=== PATIENT | female | born 1955 | race Caucasian/White ===

== ENCOUNTER 2019-06-24 09:59 | Inpatient (IN) | payer MEDICARE, MEDICAID, SELFPAY ==
--- NOTE | ~2019-06-24 | XR_ITS ---
EXAMINATION: XR chest 2V DATE: 06/24/2019 10:53 INDICATION: Cough. Abdominal pain. Vomiting. TECHNIQUE: Frontal and lateral views of the chest were obtained. COMPARISON: Chest 2 views 12/09/2018, chest CT 12/10/2018 FINDINGS: The chest demonstrates clear lungs without pneumonia, pleural effusion, or pneumothorax. Th e heart size is normal. Calcified left hilar and mediastinal lymph nodes are consistent with old gran ulomatous disease. There is plate and screw fixation of proximal right humerus. There is an old heale d fracture deformity of proximal left humerus. There are changes of posterior fusion procedure from T 10 to L2. There is a chronic burst fracture of T12. There are chronic compression fractures of T11 an d L1. Surgical clips in the right upper quadrant are likely from cholecystectomy. IMPRESSION: 1. No acute cardiopulmonary disease. Reviewed, dictated and finalized at location [facility].
--- NOTE | ~2019-06-24 | CT_ITS ---
EXAMINATION: CT abdomen pelvis w con DATE: 06/24/2019 12:10 INDICATION: Epigastric abdominal pain, nausea and vomiting for days. TECHNIQUE: Computed tomography (CT) of the abdomen and pelvis was performed with 100 cc Omnipaque 350 intravenous contrast. Automated exposure control and iterative reconstruction technique were employe d. Exam dose: 267.00 mGy-cm total exam DLP. COMPARISON: 11/30/2018 CT abdomen pelvis 12/10/2018 CT thorax, abdomen, pelvis FINDINGS: Stable approximately 4 mm nodule in the right lower lobe since 12/10/2018. Mild emphysemato us changes are noted. No infiltrate or consolidation in the lower lung zones. Normal heart size. No pericardial or pleural effusion. Small hiatal hernia. Status post cholecystectomy. Calcified hepatic and splenic granulomas, consistent with old granulomat ous disease. There is chronic pancreatitis with numerous pancreatic calcifications and pancreatic duct dilatation. The pancreatic ductal dilatation is more prominent since prior examination. No peripancreatic strand ing or fluid. Consider pancreatic MRI examination Normal adrenal glands. Small cyst or scar along the posterior mid right kidney. The kidneys are otherwise unremarkable. No u rinary tract calculus or hydroureteronephrosis. There is atherosclerotic calcification of the abdominal aorta but no aneurysm. No intraperitoneal or retroperitoneal or pelvic mass lesion or adenopathy or ascites is evident. There is nonspecific 4.5 cm dilatation of the duodenum with fluid levels. There is jejunal diameter u p to approximately 3 cm with areas of small bowel wall thickening. The distal small bowel is of lesse r caliber. Consider adynamic ileus, infectious or inflammatory small bowel disease. Moderate anterior wedge T11, L1, L3, L4 compression fracture. Severe burst fracture deformity at T12. Posterior pedicle screws and rods at T11-L2. Compression screw and nail in the proximal right femur. IMPRESSION: Nonspecific duodenal dilatation and air-fluid levels and mild dilatation, wall thickenin g and air-fluid levels of the jejunum; consider infectious or inflammatory enteritis, adynamic ileus Chronic pancreatitis, including multiple calcifications and pancreatic duct dilatation; consider panc reatic MRI given interval enlargement of the pancreatic duct Multiple compression fracture and burst fracture deformities of the thoracic and lumbar spine Reviewed, dictated and finalized at [facility]. Reviewed, dictated and finalized at location A. IMPRESSION: Nonspecific duodenal dilatation and air-fluid levels and mild dila tation, wall thickening and air-fluid levels of the jejunum; consider infectiou s or inflammatory enteritis, adynamic ileus Chronic pancreatitis, including multiple calcifications and pancreatic duct dil atation; consider pancreatic MRI given interval enlargement of the pancreatic d uct Multiple compression fracture and burst fracture deformities of the thoracic an d lumbar spine
[2019-06-24 10:03] VITALS: BP 137/95; PULSE 118; RESP 18; TEMP 36.7; O2SAT 98
--- NOTE | 2019-06-24 10:07 | ECG_ITS ---
Measurements Intervals Brilliant Rate: 124 P: 82 LA: 154 QRS: 86 QRSD: 79 T: 82 QT: 318 QTc: 457 Interpretive Statements SINUS TACHYCARDIA DELAYED PRECORDIAL R/S TRANSITION BORDERLINE T WAVE ABNORMALITY- LATERAL LEADS ABNORMAL ECG Electronically Signed On 06-24-2019 10:39:52 CDT by Santana Retana D.O.
[2019-06-24] MEDS: ONDANSETRON INJ 4 MG/2 ML VIAL 8 MG IV PUSH (10:25)
[2019-06-24] MEDS: HYDROMORPHONE HCL 2 MG/ML VIAL 0.5 MG IV PUSH ×2 (10:26→13:43)
[2019-06-24] MEDS: SODIUM CHLORIDE 0.9% IV 1,000 ML 999 ML IV CONT ×2 (10:30→12:19)
[2019-06-24 10:33] LABS: Basophils Absolute Auto 0.03 K/mm3 (0.00-0.10); Basophils Percent Auto 0.4 % (0.0-1.0); Eosinophils Percent Auto 1.3 % (1.0-6.0); Hematocrit 50.4 % (35.0-49.0); Hemoglobin 17.4 g/dL (12.0-15.0); Immature Granulocyte Absolute 0.03 K/mm3 (0.00-0.00); Immature Granulocyte Percent A 0.4 % (0.0-0.0); Lymphocytes Absolute Auto 1.62 K/mm3 (1.10-4.50); Lymphocytes Percent Auto 20.5 % (18.0-42.0); Mean Corpuscular HGB Conc 34.5 g/dL (32.0-36.0); Mean Corpuscular Volume 92.8 fL (78.0-102.0); Monocytes Percent Auto 6.3 % (2.0-11.0); Neutrophils Absolute Auto 5.6 K/mm3 (1.7-7.2); Neutrophils Percent Auto 71.1 % (50.0-70.0); Platelet Count Result 297 K/mm3 (150-420); Red Blood Count 5.43 M/mm3 (4.20-5.40); Red Cell Distribution Width 14.4 % (11.6-14.4); White Blood Count 7.9 K/mm3 (4.8-10.8)
--- NOTE | 2019-06-24 10:43 | PC.NURSE ---
Report given to Tommie Venegas
[2019-06-24 10:46] LABS: Partial Thromboplastin Time 32.7 SEC (22.3-31.6); Prothrombin Time 10.7 Seconds (9.64-11.0)
--- NOTE | 2019-06-24 10:50 | ED.ABDPAIN ---
HPI - Abdominal Pain General Chief Complaint: Abdominal Pain Stated Complaint: Ambulance Time Seen by Provider: 06/24/19 10:00 Source: patient Mode of arrival: ambulatory Limitations: no limitations History of Present Illness HPI narrative: 63-year-old woman with a history of pancreatitis, hepatitis, GERD, hiatal hernia and chronic abdominal pain came to the emergency department by EMS for 2 days of epigastric pain, vomiting and diarrhea. She denies blood in her stool or blood in her vomitus and she has had no fever. She states that she has a chronic cough and emphysema but has not used her inhaler since last night. She denies any sick exposures or recent travel. MD elicited complaint: abdominal pain Pertinent past history: other ( Pancreatitis) Onset (ago): day(s) (2) Pain Consistency: constant Location: epigastric Severity: severe Quality: sharp Radiation: none Migration to: no migration Exacerbating factors: nothing Relieving factors: nothing Associated symptoms: nausea, vomiting and diarrhea Related Data Home Medications Medication Instructions Recorded Confirmed albuterol sulfate 2 puff INHALATION PRN PRN 06/24/19 06/24/19 amitriptyline 100 mg PO HS 06/24/19 06/24/19 pantoprazole 40 mg PO DAILY 06/24/19 06/24/19 Allergies Allergy/AdvReac Type Severity Reaction Status Date / Time aspirin Allergy Unknown Unknown Verified 11/30/18 20:28 codeine Allergy Unknown Rash Verified 06/24/19 10:19 Penicillins Allergy Unknown Unknown Verified 11/30/18 20:28 Sulfa (Sulfonamide Allergy Unknown Unknown Verified 11/30/18 20:28 Antibiotics) Review of Systems Constitutional: Constitutional: Denies chills, Reports fatigue, Denies fever(s) and Denies weakness Eyes: Eyes: Denies change in vision and Denies photophobia ENT: Denies dysphagia, Denies nasal congestion and Denies sore throat Cardiovascular: Cardiovascular: Reports chest pain and Denies radiating jaw, neck or arm pain Respiratory: Respiratory: Reports cough, Reports dyspnea and Reports wheezing Gastrointestinal: Gastrointestinal: Reports abdominal pain, Reports diarrhea, Reports nausea and Reports vomiting Genitourinary: Genitourinary: Denies hematuria, Denies nocturia and Denies dysuria Musculoskeletal: Musculoskeletal: Denies back pain, Denies arthralgias and Denies joint swelling Integumentary/Breasts: Skin/Breast: Denies pruritus, Denies erythema and Denies rash Neurologic: Denies vertigo, Denies dizziness and Denies syncope Psychiatric: Psychiatric: Denies anxiety and Denies depression Endocrine: Endocrine: Denies polydipsia and Denies polyuria Hematologic/Lymphatic: Hematologic/Lymphatic: Denies easy bleeding and Denies easy bruising Allergic/Immunologic: Allergic/Immunologic: Denies lip swelling and Reports wheezing PMFSH Past Medical History Medical History GERD (gastroesophageal reflux disease) Pancreatitis Surgical History Surgical History H/O shoulder surgery right History of ankle surgery right History of hip surgery right Hx of cholecystectomy Previous back surgery Social History Social History Smoking status: Never smoker Alcohol intake: never Substance use: never Living arrangements: with family Exam Narrative: Exam Narrative: acute distress, tearful Const: General: alert Nutritional Appearance: well nourished Orientation/consciousness: patient oriented x3 HENMT: Ears: external ears normal, TM's normal bilaterally and EAC's normal Mouth: Yes Normal oral and palatal mucosa present and Yes moist mucous membranes Throat: posterior oropharynx normal Eyes: Conjunctivae: conjunctivae normal Pupils: Equal, round and reactive pupils present EOM: EOMs intact bilaterally Resp: Effort & Inspection: normal respiratory effort and not labored
[2019-06-24 10:56] LABS: Add Urine Microscopic? YES; Appearance Urine Sl Cloudy (Clear); Bilirubin Urine 2+ (Negative); Blood Urine Negative (Negative); Color Urine Yellow (Yellow); Glucose Urine UA Negative (Negative); Ketones Urine Trace (Negative); Leukocyte Esterase Ur Negative LEU/UL (Negative); Nitrate Urine Negative (Negative); Protein Urine 1+ (Negative); Specific Grav Ur 1.025 (1.010-1.020); pH Urine 5.5 (5.0-8.0)
[2019-06-24 11:01] LABS: RBC Urine 0-2 /hpf (0-2); Squamous Epithelial Cell Urine Moderate /hpf (Few); WBC Urine 0-3 /hpf (0-3)
[2019-06-24 11:02] LABS: Bacteria Urine 1+ /hpf; Mucus Urine Few /lpf
[2019-06-24] MEDS: IPRATROPIUM 0.5 MG/ALBUTEROL SULFATE 2.5 MG AMPUL.NEB 3 ML INHALATION (11:04)
[2019-06-24 11:06] VITALS: PULSE 97; RESP 16
[2019-06-24 11:12] VITALS: PULSE 98; RESP 16
[2019-06-24 11:18] LABS: Lactic Acid Reflex 1.2 mmol/L (0.4-2.0)
[2019-06-24 11:28] LABS: Alanine Aminotransferase 17 U/L (14-59); Albumin Level 3.6 g/dL (3.4-5.0); Alkaline Phosphatase 165 U/L (46-116); Aspartate Amino Transferase 16 U/L (15-37); Bilirubin,Total 0.5 mg/dL (0.00-1.00); Blood Urea Nitrogen 16 mg/dL (7-18); Calcium 9.7 mg/dL (8.5-10.1); Carbon Dioxide 27 mmol/L (21-32); Estimated Glomerular Filt Rate > 60; Glucose 103 mg/dL (70-99); Lipase 518 U/L (73-393)
[2019-06-24 11:29] LABS: Anion Gap 15.4 mmol/L (7-16); Chloride 97 mmol/L (98-108); Osmolality Calculated 283 mOsm/kg (285-295); Potassium 3.4 mmol/L (3.5-5.1); Sodium 136 mmol/L (136-145); Troponin I < 0.02 ng/mL (0.00-0.056)
[2019-06-24 12:08] VITALS: BP 139/74; PULSE 125; O2SAT 93
[2019-06-24 12:25] VITALS: PULSE 121; RESP 20; TEMP 37.6; O2SAT 96
[2019-06-24] MEDS: ENOXAPARIN 40 MG/0.4 ML SYRINGE SUB-Q (12:44)
[2019-06-24] MEDS: PANTOPRAZOLE SODIUM IV 40 MG VIAL IV PUSH (12:44)
[2019-06-24 12:54] VITALS: BMI 16.9
[2019-06-24] MEDS: ONDANSETRON INJ 4 MG/2 ML VIAL IV PUSH (13:43)
--- NOTE | 2019-06-24 14:11 | PM.IMHP ---
H&P: HPI History of Present Illness Chief complaint: Ambulance Narrative: Heather Carpio is a 63 year old female that presented to the ED complaining nausea, vomiting, diarrhea and decreased appetite. patient has a past medical history of GERD and pancreatitis. according to patient she has had a history of GERD since her teenage years. She noted that she started having symptoms of GERD into Pepto-Bismol at home for it. She noted that the Pepto-Bismol did not relieve the pain. She also noted that her appetite had decreased she was unable to hold anything down. At approximately 3:00 a.m. this morning her pain worsen and she had uncontrollable vomiting with diarrhea. she did note that her stool was dark in color. while in the ED a CT was completed indicated Nonspecific duodenal dilatation and air-fluid levels and mild dilatation, wall thickening and air-fluid levels of the jejunum; consider infectious or inflammatory enteritis, adynamic ileus Chronic pancreatitis, including multiple calcifications and pancreatic duct dilatation; consider pancreatic MRI given interval enlargement of the pancreatic duct. Patient chest x-ray was unremarkable occult blood was collected along with C diff and stool workup patient's liver function tests, CRP, troponin and lactic acid were all within normal limits. Patient's alkaline phosphate was elevated along with her lipase. Patient is being admitted for cramps acute pancreatitis, acute dehydration and hypokalemia. Her current vital signs 139/74, 121, 99.6, 20, 96. patient continues to complain of epigastric pain. she did note while she was at home that it did not worsen with food and the pain remained whether she was sitting up or lying down. patient is very emotional today and appears to be anxious Patient denies SOB, CP, palpitation, extremity numbness, lightheadness, dizziness, and constipation. patient will remain NPO and given all medication via IV Review of Systems Constitutional: Constitutional: Reports poor appetite and Reports weakness Cardiovascular: Cardiovascular: Reports lightheadedness, Denies dyspnea, Denies dyspnea on exertion and Denies orthopnea Respiratory: Respiratory: Denies cough, Denies dyspnea and Denies wheezing Gastrointestinal: Gastrointestinal: Denies coffee ground emesis, Reports diarrhea ( dark in color), Reports nausea, Reports vomiting and Denies hematemesis Genitourinary: Genitourinary: Reports no additional female genitourinary complaints, Denies hematuria and Denies dysuria Musculoskeletal: Musculoskeletal: Denies no additional musculoskeletal complaints Integumentary/Breasts: Skin/Breast: Denies system reviewed and no additional complaints, except as docu Neurologic: Denies vertigo, Denies dizziness and Denies syncope Psychiatric: Psychiatric: Denies no additional psychiatric complaints and Denies confusion Endocrine: Endocrine: Reports as per HPI Hematologic/Lymphatic: Hematologic/Lymphatic: Reports as per HPI PMFSH Past Medical History Medical History GERD (gastroesophageal reflux disease) Pancreatitis Surgical History Surgical History H/O shoulder surgery right History of ankle surgery right History of hip surgery right Hx of cholecystectomy Previous back surgery Family History Family History (Updated 06/24/19 @ 13:10 by Sheri Doran RN) Father Cancer Mother Cancer Social History Social History Smoking status: Current some day smoker Tobacco type: cigarettes Second hand tobacco smoke exposure: Yes Alcohol intake: never Substance use: never Substance use type: does not use Living arrangements: with family Gender identity (if verbalized by the patient): Female Spiritual care concerns: No Agree to blood products: Yes Meds Home Medications and A
[2019-06-24] MEDS: MAGNESIUM SULF 2 GM/WATER 50ML 2 GM/50 ML BAG IVPB (14:52)
[2019-06-24 16:00] VITALS: BP 144/97; PULSE 96; RESP 20; TEMP 37.2; O2SAT 96
[2019-06-24] MEDS: HYDROMORPHONE HCL 2 MG/ML VIAL 1 MG IV PUSH ×3 (16:28→22:59)
[2019-06-24] MEDS: KCL 20 MEQ/SW 100 ML 100 ML 50 MEQ IVPB (16:28)
[2019-06-24] MEDS: DEXTROSE 5%/LACTATED RINGERS 1,000 ML 200 ML IV CONT ×2 (18:27→22:58)
[2019-06-24] MEDS: AMITRIPTYLINE HCL 25 MG TABLET 100 MG PO (21:14)
[2019-06-24] MEDS: LORAZEPAM INJ 2 MG/ML VIAL 0.5 MG IV PUSH (21:16)
[2019-06-25] VITALS: BP 130/82; PULSE 78; RESP 18; TEMP 36.3; O2SAT 94
[2019-06-25] MEDS: PANTOPRAZOLE SODIUM IV 40 MG VIAL IV PUSH (00:21)
[2019-06-25] MEDS: HYDROMORPHONE HCL 2 MG/ML VIAL 1 MG IV PUSH ×3 (03:17→11:23)
--- NOTE | 2019-06-25 03:20 | PC.NURSE ---
Patient's RFA IV site no longer flushes and therefore discontinued. New site started in left foot by Gloria Fitzpatrick RN. Patient requested/given PRN Dilaudid for abdominal pain. Call light in reach.
[2019-06-25] MEDS: DEXTROSE 5%/LACTATED RINGERS 1,000 ML 200 ML IV CONT (05:21)
[2019-06-25 05:50] LABS: Basophils Absolute Auto 0.04 K/mm3 (0.00-0.10); Basophils Percent Auto 0.8 % (0.0-1.0); Eosinophils Absolute Auto 0.21 K/mm3 (0.02-0.50); Eosinophils Percent Auto 4.4 % (1.0-6.0); Hematocrit 42.7 % (35.0-49.0); Hemoglobin 13.7 g/dL (12.0-15.0); Immature Granulocyte Absolute 0.01 K/mm3 (0.00-0.00); Immature Granulocyte Percent A 0.2 % (0.0-0.0); Lymphocytes Percent Auto 44.2 % (18.0-42.0); Mean Corpuscular HGB Conc 32.1 g/dL (32.0-36.0); Mean Corpuscular Hemoglobin 31.2 pg (27.0-31.0); Mean Corpuscular Volume 97.3 fL (78.0-102.0); Mean Platelet Volume 9.1 fl (9.2-11.8); Monocytes Absolute Auto 0.36 K/mm3 (0.10-0.90); Monocytes Percent Auto 7.6 % (2.0-11.0); Neutrophils Percent Auto 42.8 % (50.0-70.0); Platelet Count Result 188 K/mm3 (150-420); Red Blood Count 4.39 M/mm3 (4.20-5.40); Red Cell Distribution Width 14.5 % (11.6-14.4); White Blood Count 4.8 K/mm3 (4.8-10.8)
[2019-06-25 06:19] LABS: Alanine Aminotransferase 14 U/L (14-59); Albumin Level 2.7 g/dL (3.4-5.0); Alkaline Phosphatase 118 U/L (46-116); Anion Gap 9.7 mmol/L (7-16); Aspartate Amino Transferase 13 U/L (15-37); Bilirubin,Total 0.3 mg/dL (0.00-1.00); Blood Urea Nitrogen 10 mg/dL (7-18); Calcium 8.1 mg/dL (8.5-10.1); Carbon Dioxide 29 mmol/L (21-32); Chloride 104 mmol/L (98-108); Estimated CRCL calculation 64 ml/min; Estimated Glomerular Filt Rate > 60; Glucose 95 mg/dL (70-99); Lipase 237 U/L (73-393); Osmolality Calculated 287 mOsm/kg (285-295); Potassium 3.7 mmol/L (3.5-5.1); Sodium 139 mmol/L (136-145); Total Protein 5.6 g/dL (6.4-8.2)
[2019-06-25 08:00] VITALS: BP 148/84; PULSE 87; RESP 18; TEMP 36.7; O2SAT 94
[2019-06-25] MEDS: FAMOTIDINE 20 MG TABLET PO ×2 (10:52→20:34)
[2019-06-25] MEDS: ONDANSETRON HCL ODT 4 MG TABLET PO ×3 (10:52→23:43)
[2019-06-25] MEDS: PANTOPRAZOLE 40 MG TABLET PO (10:53)
[2019-06-25] MEDS: ACETAMINOPHEN 500 MG TABLET 1000 MG PO (10:53)
[2019-06-25 11:01] LABS: Amphetamine Screen Urine Negative (Negative); Barbiturate Screen Urine Negative (Negative); Benzodiazepines Screen Urine Negative (Negative); Cannabinoid Screen Urine Positive (Negative); Cocaine Screen Urine Negative (Negative); Methadone Screen Urine Negative (Negative); Opiate Screen Urine Negative (Negative); Phencyclidine Screen Urine Negative (Negative)
[2019-06-25] MEDS: SODIUM CHLORIDE 0.9% IV 500 ML IV CONT (11:22)
[2019-06-25] MEDS: LORAZEPAM INJ 2 MG/ML VIAL 0.5 MG IV PUSH (11:23)
[2019-06-25] MEDS: SUCRALFATE SUSP 100 MG/ML 10 ML UDC 1000 MG PO ×3 (11:24→20:34)
[2019-06-25] MEDS: metroNIDAZOLE 500 MG/ISO 100ML 500 MG/100 ML BAG 100 MG IVPB ×3 (12:26→23:43)
[2019-06-25 12:33] LABS: Magnesium 1.5 mg/dL (1.8-2.4); Phosphorus 2.9 mg/dL (2.6-4.7)
[2019-06-25] MEDS: ENOXAPARIN 40 MG/0.4 ML SYRINGE SUB-Q (13:27)
[2019-06-25] MEDS: CIPROFLOXACIN 400 MG/D5W 200ML 200 ML 200 MG IVPB (13:37)
--- NOTE | 2019-06-25 13:50 | PC.NURSE ---
Patient denies nausea while and after eating clear liquid tray. Patient requested crackers with broth
[2019-06-25 16:00] VITALS: BP 158/92; PULSE 74; PULSE 80; RESP 18; TEMP 36.8; O2SAT 96
[2019-06-25] MEDS: MAGNESIUM SULF 4 GM/WATER100ML 4 GM/100 ML BAG IVPB (16:32)
--- NOTE | 2019-06-25 16:53 | PM.IMPN ---
Progress Note: A&P Assessment and Plan (1) Acute pancreatitis: Qualifiers: Acute pancreatitis complication: no infection or necrosis Pancreatitis type: other Qualified Code(s): K85.80 - Other acute pancreatitis without necrosis or infection Code(s): K85.90 - Acute pancreatitis without necrosis or infection, unspecified Status: Acute Assessment and Plan: CT indicates Chronic pancreatitis, including multiple calcifications and pancreatic duct dilatation; consider pancreatic MRI given interval enlargement of the pancreatic duct at discharge on outpatient basis. patient advance diet as tolerated patient received pain medication IV and oral. lipase elevated at 518 - now WNL at 237 alkaline phosphate elevated but also improving from 165 to 118 lactic acid within normal limits occult blood ordered, but no stool ouput for last 2 days of hospitalization. stool workup pending (2) Acute dehydration: Code(s): E86.0 - Dehydration Status: Acute Assessment and Plan: secondary to diarrhea, nausea vomiting caused by pancreatitis resolving and improving advancing her to oral hydration and nutrition. continue to hydrate patient via IV boluses when needed. nausea vomiting and hyperemesis may be related to her marijuana use, her hiatal hernia, or multiple other possible GI causes since she has not had her EGD as planned by GI physician. (3) Acute hypokalemia: Code(s): E87.6 - Hypokalemia Status: Acute Assessment and Plan: potassium 3.4, improved to 3.7 today no further concerns at this time. will repeat labs in the morning. (4) GERD (gastroesophageal reflux disease): Code(s): K21.9 - Gastro-esophageal reflux disease without esophagitis Status: Acute Assessment and Plan: continue Protonix continue pepcid and carafate Subjective Date/time seen: 06/25/19 16:53 This morning upon entering [facility] room for our morning examination and discussion, she was very tearful and in pain. She stated that she had not eaten since last for the most part. That any time she ate or did not eat she would have pain at home. And that she had lost approximately 15 lb. She stated that she had been no better since her admission, and that she was still currently in pain and unable to eat this morning. She does see her primary care physician Dr. Andrew Louis, and she does have a GI specialist Dr. Florinda Ly, but she keeps missing her EGD appointments. She has missed 2 EGD scopes that were scheduled with Dr. Ly, and has yet to reschedule her EGD. He also wants to complete a colonoscopy after her EGD is done. She stated that her last colonoscopy was greater than 15 years ago. she does have a history of marijuana use. In the last time she was in the hospital with similar symptoms and complaints, she was also using marijuana. This hyper emesis and abdominal pain may be related to her marijuana use. On her CT scan from yesterday, it was noted she had a small hiatal hernia, chronic pancreatitis with pancreatic calcifications and pancreatic duct dilatation. This pancreatic duct dilatation seems to be worse when compared to her December 10, 2018 CT scan. She really needs to have a pancreatic MRI, but we do not have MRI here at [facility] until Monday. She will need to get her MRI scheduled as an outpatient after discharge. Also on her CT scan from yesterday, it showed a 4.5 cm dilatation of her duodenum and areas in her jejunum of the small bowel thickening which could be an adynamic ileus or infectious or inflammatory small bowel disease. We have ordered IV Cipro and IV Flagyl. She is not having any diarrhea, no stool output since her admission, and she denies constipation at this time. Her abdominal pain seems to be epigastric and located in the mid and upper region of her abdomen. She is currently having no nausea or vomiting at
--- NOTE | 2019-06-25 18:47 | P.PNCROSS_ITS ---
Event Note Event Note Event Note: Chart reviewed. Discussed with Ro Ayala. S. Still abdominal pain, nausea. Concerned about weight loss. O. Abdomen is soft with epigastric tenderness. A. Abd pain, nausea secondary to pancreatitis. MRI at [facility] unavailable for 4 days - Dilated small bowel may be secondary to infection causing symptoms. Agree with Cipro + metronidazole. Follow up needed to evaluate pancreatic duct dilation seen on CT scan and EGD. Dehydration - improved. Agree with note and plan put forth by Ro Ayala.
[2019-06-25] MEDS: KETOROLAC 30 MG/ML VIAL (*BKC) IV PUSH (18:49)
[2019-06-25 20:00] VITALS: PULSE 73
[2019-06-25 20:14] LABS: Occult Blood Negative (Negative)
[2019-06-25] MEDS: TRAMADOL HCL 50 MG TABLET PO (20:35)
[2019-06-25] MEDS: AMITRIPTYLINE HCL 25 MG TABLET 100 MG PO (20:36)
[2019-06-25 20:42] VITALS: BP 133/84; PULSE 73; RESP 18; TEMP 36.3; O2SAT 95
[2019-06-25 23:40] VITALS: BP 139/87; PULSE 66; RESP 16; TEMP 36.7; O2SAT 94
[2019-06-26] VITALS (7 sets, daily range): BP systolic 118–135; BP diastolic 74–79; PULSE 70–83; RESP 18–20; TEMP 36.2–36.9; O2SAT 94–96
[2019-06-26] MEDS: CIPROFLOXACIN 400 MG/D5W 200ML 200 ML 200 MG IVPB (00:58)
[2019-06-26] MEDS: KETOROLAC 15 MG/ML VIAL (*BKC) IV PUSH (00:59)
[2019-06-26] MEDS: TRAMADOL HCL 50 MG TABLET PO (05:35)
[2019-06-26] MEDS: metroNIDAZOLE 500 MG/ISO 100ML 500 MG/100 ML BAG 100 MG IVPB ×2 (05:36→11:27)
[2019-06-26] MEDS: SUCRALFATE SUSP 100 MG/ML 10 ML UDC 1000 MG PO ×2 (05:36→11:27)
[2019-06-26] MEDS: ONDANSETRON HCL ODT 4 MG TABLET PO ×2 (05:36→09:47)
[2019-06-26 05:38] LABS: Hematocrit 36.6 % (35.0-49.0); Hemoglobin 12.1 g/dL (12.0-15.0); Mean Corpuscular HGB Conc 33.1 g/dL (32.0-36.0); Mean Corpuscular Hemoglobin 31.7 pg (27.0-31.0); Mean Corpuscular Volume 95.8 fL (78.0-102.0); Platelet Count Result 162 K/mm3 (150-420); Red Blood Count 3.82 M/mm3 (4.20-5.40); Red Cell Distribution Width 14.2 % (11.6-14.4); White Blood Count 3.5 K/mm3 (4.8-10.8)
[2019-06-26 06:06] LABS: Alanine Aminotransferase 11 U/L (14-59); Albumin Level 2.4 g/dL (3.4-5.0); Alkaline Phosphatase 112 U/L (46-116); Anion Gap 8.5 mmol/L (7-16); Aspartate Amino Transferase 13 U/L (15-37); Bilirubin,Total 0.3 mg/dL (0.00-1.00); Blood Urea Nitrogen 11 mg/dL (7-18); Carbon Dioxide 29 mmol/L (21-32); Chloride 105 mmol/L (98-108); Estimated CRCL calculation 68 ml/min; Estimated Glomerular Filt Rate > 60; Glucose 99 mg/dL (70-99); Lipase 303 U/L (73-393); Magnesium 1.7 mg/dL (1.8-2.4); Osmolality Calculated 287 mOsm/kg (285-295); Potassium 3.5 mmol/L (3.5-5.1); Sodium 139 mmol/L (136-145); Total Protein 5.4 g/dL (6.4-8.2)
[2019-06-26] MEDS: PANTOPRAZOLE 40 MG TABLET PO (08:01)
[2019-06-26] MEDS: LIDOCAINE 5% PATCH 2 PATCH TRANSDERM (08:01)
[2019-06-26] MEDS: FAMOTIDINE 20 MG TABLET PO (08:01)
[2019-06-26] MEDS: KETOROLAC 30 MG/ML VIAL (*BKC) IV PUSH (08:02)
[2019-06-26] MEDS: LORAZEPAM 0.5 MG TABLET PO (09:47)
--- NOTE | 2019-06-26 09:48 | PC.NURSE ---
Patient complaining of 9-10 stomach pain. Ro Ayala ANP stated to give Ativan PRN dose and Zofran scheduled dose 1.25 hours early. Both given. Patient sitting on the side of the bed without difficulty, tearful. All personal effects within reach. Will continue to monitor.
[2019-06-26] MEDS: MAGNESIUM SULF 4 GM/WATER100ML 4 GM/100 ML BAG IVPB (10:28)
[2019-06-26] MEDS: POTASSIUM CHLORIDE 20 MEQ PACKET (FOR LIQUID) PO (10:29)
--- NOTE | 2019-06-26 11:36 | PM.DS ---
DS: Diagnosis Admitting Diagnosis Admitting Diagnosis: Other acute pancreatitis without necrosis or infection Discharge Diagnosis (1) Acute pancreatitis: Qualifiers: Acute pancreatitis complication: no infection or necrosis Pancreatitis type: other Qualified Code(s): K85.80 - Other acute pancreatitis without necrosis or infection Code(s): K85.90 - Acute pancreatitis without necrosis or infection, unspecified Status: Acute Assessment and Plan: CT indicates Chronic pancreatitis, including multiple calcifications and pancreatic duct dilatation; consider pancreatic MRI given interval enlargement of the pancreatic duct at discharge on outpatient basis. Ordered this at discharge. patient advance diet as tolerated patient received pain medication IV and oral. lipase elevated at 518 - now WNL at 237 and 303 alkaline phosphate elevated but also improving from 165 to 118 lactic acid within normal limits occult blood ordered, but no stool output for last 2 days of hospitalization. stool workup pending (2) Acute dehydration: Code(s): E86.0 - Dehydration Status: Acute Assessment and Plan: secondary to diarrhea, nausea vomiting possibly caused by pancreatitis resolving and improving advancing her to oral hydration and nutrition. continue to hydrate patient via IV boluses when needed. nausea vomiting and hyperemesis may be related to her marijuana use, her hiatal hernia, or multiple other possible GI causes since she has not had her EGD as planned by GI physician. (3) Acute hypokalemia: Code(s): E87.6 - Hypokalemia Status: Acute Assessment and Plan: potassium 3.4, improved to 3.7 and 3.5 today no further concerns at this time. will repeat labs in the morning. (4) GERD (gastroesophageal reflux disease): Code(s): K21.9 - Gastro-esophageal reflux disease without esophagitis Status: Acute Assessment and Plan: continue Protonix continue pepcid and carafate DS: Summary Time Spent with Patient Time attestation: Total time spent providing and/or coordinating discharge services:>90 minutes Exam Narrative: Exam Narrative: Const: General: comfortable and no acute distress; No confusion Orientation/consciousness: No confusion Limitations: no limitations Eyes: General: appearance normal, both eyes and all related structures Pupils: Equal, round and reactive pupils present EOM: EOMs intact bilaterally Resp: Effort & Inspection: normal respiratory effort Auscultation: clear to auscultation bilaterally, no crackles, no rales, no rhonchi, no wheezes and lung sounds not diminished Cardio: Rate: regular rate Rhythm: regular rhythm Heart sounds: no gallops, no murmurs and no rubs GI: Inspection: non-distended GI Palp: Yes Soft to palpation and No Tenderness to palpation present (GI) Auscultation: normal bowel sounds Skin: General skin exam: normal color, rashes and/or lesions noted and no erythema Neuro: General: gait normal and No confusion Cranial nerves: Yes Equal, round and reactive pupils present and Yes Normal hearing present Speech: normal speech and No Abnormal speech present Motor exam (neuro): Normal motor muscle tone present throughout Sensory Exam: normal sensation Extrem: General: normal to inspection, normal exam except as noted, no edema and no pedal edema Right upper extremity: abnormal capillary refill, no cyanosis and no edema Left upper extremity: abnormal capillary refill, no cyanosis and no edema Right lower extremity: abnormal capillary refill, no cyanosis and no edema Left lower extremity: abnormal capillary refill, no cyanosis and no edema Psych: Appearance: grossly normal Mental Status: mental status grossly normal Speech and movement: Normal speech and movement present Affect: normal affect and Anxious affect present Thought content: Yes Normal thought content present Judgement: Fair j
--- NOTE | 2019-06-26 12:13 | PC.NURSE ---
Patient sitting up in bed eating lunch. denies complaints of pain or discomfort. Patient states she is hungry all personal effects within reach. IV infusing without difficulty.
--- NOTE | 2019-06-26 19:26 | PM.EVENT ---
Event Note Event Note Event Note: Patient states that she has intermittent abdominal pain but has been able to tolerate food and drink. Still taking pain medication intermittently and using her nausea medicine p.r.n. alert and oriented. No acute distress. Lungs clear to auscultation. Regular rhythm murmur rub or gallop. No distal edema. Abdomen is soft and minimally tender in the epigastrium. No masses. Positive bowel sounds. Home today with close follow-up. She will also follow-up with her molder shoulder pad. I have examined the patient and reviewed the chart. I discussed patient's care with A Jamie BRADLEY and agree with her assessment and plan.
== END 2019-06-26 14:15 | disposition home or self-care (01) | DRG 640 ==
LOC: CHSED 11:51 → CHS2ND 12:03
PROVIDERS: Nurse Practitioner; Admitting Provider Emergency Medicine; Emergency Provider Emergency Medicine; PCP Family Medicine; Visit Provider Emergency Medicine
DX: K85.80 Other acute pancreatitis without necrosis or infection (principal); E86.0 Dehydration; K85.90 Acute pancreatitis without necrosis or infection, unspecified; E87.6 Hypokalemia; K44.9 Diaphragmatic hernia without obstruction or gangrene; K21.9 Gastro-esophageal reflux disease without esophagitis; F12.90 Cannabis use, unspecified, uncomplicated
CPT/HCPCS: 36415; 71046; 74177; 80053; 80307; 81001; 82272; 83605; 83690; 83735; 84100; 84484; 85025; 85027; 85610; 85730; 87045; 87046; 87177; 87209; 87269; 87272; 87324; 87427; 89055; 93005; 94640; 96361; 96372; 96374; 96375; 97161; 97165; 99285; A9270; C9113; J0744; J1170; J1650; J1885; J2060; J2405; J3475; J3480; J7030; J7040; J7121; Q9965

== ENCOUNTER 2019-07-12 13:28 | Outpatient (CLI) | payer MEDICARE, MEDICAID, SELFPAY ==
--- NOTE | ~2019-07-12 | MR_ITS ---
EXAMINATION: MR MRCP wo/w con/w 3D wo ind DATE: 07/12/2019 15:17 INDICATION: Pancreatitis TECHNIQUE: Magnetic resonance imaging (MRI) of the abdomen was performed without and with intravenous contrast. Sequences included coronal T2-weighted SS-FSE ARC, coronal T2-weighted FS SS-FSE, coronal T2-weighted 2D FS FIESTA, Water:Coronal LAVA-Flex, sagittal T2-weighted SS-FSE ARC, axial SSFSE ARC, axial 3D DualEcho, axial DWI B=600, axial T1-weighted LAVA, FAT:Coronal LAVA-Flex, and coronal in and opposed phase LAVA-Flex. Thick-slab T2-weighted FRFSE-XL images were obtained for magnetic resonance cholangiopancreatography (MRCP). Maximum intensity projection 3-D reconstructions of the volumetric data were created by the technologist. Postcontrast sequences included a time course of axial T1-weig hted LAVA, FAT:Coronal LAVA-Flex, coronal in and opposed phase LAVA-Flex, and Water:Coronal LAVA-Flex . COMPARISON: CT, 06/24/2019 CONTRAST: Multihance, 10 cc FINDINGS: ABDOMEN MRI: The heart size is normal. The gallbladder is surgically absent. The liver, spleen, and a drenal glands are normal. Cysts of the kidneys measure up to 6 mm on the right. There are no patholog ically enlarged abdominal lymph nodes. No dilated loops of bowel are seen. There is diffuse atrophy o f the pancreas. ABDOMEN MRCP: There is marked distention of the pancreatic duct throughout its course. There is a que stionable stone in the head of the pancreas. The common bile duct is normal in course and caliber. IMPRESSION: 1. Findings consistent with chronic pancreatitis including marked distention of the pancreatic duct w ith possible ductal stone in the head of the pancreas. Reviewed, dictated and finalized at location A. IMPRESSION: 1. Findings consistent with chronic pancreatitis including marked distention of the pancreatic duct with possible ductal stone in the head of the pancreas.
[2019-07-12 14:02] LABS: Estimated Glomerular Filt Rate > 60
== END 2019-07-12 13:29 | disposition home or self-care (01) ==
LOC: ANHIMG 13:34
PROVIDERS: PCP Family Medicine; Visit Provider Internal Medicine Gastroenterology
DX: R93.3 Abnormal findings on diagnostic imaging of other parts of digestive tract (principal); K85.90 Acute pancreatitis without necrosis or infection, unspecified
CPT/HCPCS: 36415; 74183; 76376; A9577

== ENCOUNTER 2019-08-19 12:17 | Outpatient (CLI) | payer MEDICARE, SELFPAY ==
[2019-08-23 21:01] LABS: Gliadin AB, IgG 4 Units (<20); Reticulin IgA Negative (Negative); TTG IGA AB 1 U/mL (<4)
== END 2019-08-19 12:18 | disposition home or self-care (01) ==
LOC: CHSLAB 12:19
PROVIDERS: PCP Family Medicine; Visit Provider Internal Medicine Gastroenterology
DX: R10.9 Unspecified abdominal pain (principal)
CPT/HCPCS: 36415; 83516; 86255

== ENCOUNTER 2019-09-29 13:03 | Emergency (ER) | payer MEDICARE, MEDICAID, SELFPAY ==
--- NOTE | ~2019-09-29 | CT_ITS ---
EXAMINATION: CT abdomen pelvis w con DATE: 09/29/2019 14:23 INDICATION: History of pancreatitis. Abdomen pain. TECHNIQUE: Computed tomography (CT) of the abdomen and pelvis was performed with 100 cc Omnipaque 350 intravenous contrast. The dose-length product was 190.01 mGy-cm. Automated exposure control and iter ative reconstruction technique were employed. COMPARISON: CT dated 06/24/2019 FINDINGS: Heart size normal. No significant pleural or pericardial effusion. Status post cholecystect kam. There are calcified granulomas in the liver and spleen. There are surgical changes consistent wi th spinal fusion from T10-L2. There is a chronic burst fracture of T12. There are chronic wedge compr ession deformities of L3 and L4. Moderate atherosclerosis. There are pancreatic calcifications, consistent with chronic pancreatitis. Mildly dilated pancreatic duct. No significant peripancreatic inflammation. Status post cholecystecto my with expected prominence of the bile ducts. The adrenal glands and kidneys are unremarkable. Nonob structive bowel gas pattern. No free air or free fluid. Mild subcutaneous edema. There are dynamic co mpression screws transfixing the right femoral neck. IMPRESSION: 1. No acute abdominal abnormality identified. 2: Chronic pancreatitis. 3: Status post cholecystectomy with expected prominence of the bile ducts. Reviewed, dictated and finalized at location A.
--- NOTE | 2019-09-29 13:08 | ED.ABDPAIN ---
HPI - Abdominal Pain General Chief Complaint: Abdominal Pain Stated Complaint: ambulance Time Seen by Provider: 09/29/19 13:08 Source: patient, EMS and RN notes reviewed Mode of arrival: EMS History of Present Illness HPI narrative: Patient has a history of acute and chronic pancreatitis. She says she has been doing well watching what she eats but then last began having abdominal pain. Been going on intermittently. She tried to ignore it and hoped it would resolve. Then last evening at midnight her abdominal pain became severe with nausea vomiting. She had regular bowel movement today. No history of constipation. Does have a history of reflux. Only medicine she has been taking is her reflux medicine and her amitriptyline. She has medications for her pancreatitis including Creon and hyoscyamine. MD elicited complaint: abdominal pain Onset (ago): day(s) (3 worse since midnight) Pain Consistency: intermittent Location: LUQ and LLQ Severity: similar to previous episodes Pain scale (0-10): 10 Quality: cramping and sharp Radiation: none Migration to: no migration Exacerbating factors: eating Relieving factors: nothing Context: confirms history of similar episodes Associated symptoms: nausea and vomiting Related Data Home Medications Medication Instructions Recorded Confirmed hyoscyamine sulfate 0.125 mg PO QID 09/29/19 09/29/19 [id number] [Creon] 1 cap PO HS 09/29/19 09/29/19 [id number] [Creon] 2 cap PO QAM 09/29/19 09/29/19 omeprazole 20 mg PO DAILY 09/29/19 09/29/19 sucralfate 1 g PO TID 09/29/19 09/29/19 Allergies Allergy/AdvReac Type Severity Reaction Status Date / Time aspirin Allergy Unknown Unknown Verified 11/30/18 20:28 codeine Allergy Unknown Rash Verified 06/24/19 10:19 Penicillins Allergy Unknown Unknown Verified 11/30/18 20:28 Sulfa (Sulfonamide Allergy Unknown Unknown Verified 11/30/18 20:28 Antibiotics) Review of Systems Constitutional: Constitutional: Reports chills and Denies fever(s) Eyes: Eyes: Reports no additional eye complaints ENT: Reports system reviewed and no additional complaints, except as documented Cardiovascular: Cardiovascular: Reports no additional cardiovascular complaints Respiratory: Respiratory: Reports no additional respiratory complaints Gastrointestinal: Gastrointestinal: Reports as per HPI Genitourinary: Genitourinary: Reports no additional female genitourinary complaints Musculoskeletal: Musculoskeletal: Reports no additional musculoskeletal complaints Integumentary/Breasts: Skin/Breast: Reports system reviewed and no additional complaints, except as docu Neurologic: Reports system reviewed and no additional complaints, except as documented Psychiatric: Psychiatric: Reports no additional psychiatric complaints PMFSH Past Medical History Medical History GERD (gastroesophageal reflux disease) Pancreatitis Surgical History Surgical History H/O shoulder surgery right History of ankle surgery right History of hip surgery right Hx of cholecystectomy Previous back surgery Family History Family History Father Cancer Mother Cancer Social History Social History Smoking status: Current some day smoker Tobacco type: cigarettes Second hand tobacco smoke exposure: Yes Alcohol intake: never Substance use: never Substance use type: does not use Gender identity (if verbalized by the patient): Female Spiritual care concerns: No Agree to blood products: Yes Exam Const: General: no acute distress, alert and ill appearing acutely Nutritional Appearance: well nourished and thin Orientation/consciousness: patient oriented x3 Limitations: no limitations Other: female nurse in room during exam
[2019-09-29] MEDS: HYDROmorphone HCL 2 MG/ML VIAL 1 MG IV PUSH (13:30)
[2019-09-29] MEDS: SODIUM CHLORIDE 0.9% IV 1,000 ML 999 ML IV CONT ×2 (13:30→15:48)
[2019-09-29 13:42] LABS: Basophils Absolute Auto 0.02 K/mm3 (0.00-0.10); Basophils Percent Auto 0.3 % (0.0-1.0); Eosinophils Absolute Auto 0.09 K/mm3 (0.02-0.50); Eosinophils Percent Auto 1.4 % (1.0-6.0); Hemoglobin 14.1 g/dL (12.0-15.0); Immature Granulocyte Absolute 0.01 K/mm3 (0.00-0.00); Immature Granulocyte Percent A 0.2 % (0.0-0.0); Lymphocytes Percent Auto 28.9 % (18.0-42.0); Mean Corpuscular HGB Conc 34.4 g/dL (32.0-36.0); Mean Platelet Volume 9.3 fl (9.2-11.8); Monocytes Absolute Auto 0.33 K/mm3 (0.10-0.90); Neutrophils Absolute Auto 4.2 K/mm3 (1.7-7.2); Neutrophils Percent Auto 64.2 % (50.0-70.0); Platelet Count Result 175 K/mm3 (150-420); Red Blood Count 4.27 M/mm3 (4.20-5.40); Red Cell Distribution Width 13.1 % (11.6-14.4); White Blood Count 6.6 K/mm3 (4.8-10.8)
[2019-09-29 13:48] VITALS: BP 108/56; PULSE 104; RESP 20; TEMP 37.1; O2SAT 90
[2019-09-29 13:56] LABS: Alanine Aminotransferase 12 U/L (14-59); Albumin Level 3.3 g/dL (3.4-5.0); Alkaline Phosphatase 91 U/L (46-116); Amylase 26 U/L (25-115); Aspartate Amino Transferase 13 U/L (15-37); Bilirubin,Total 0.4 mg/dL (0.00-1.00); Blood Urea Nitrogen 12 mg/dL (7-18); Calcium 8.4 mg/dL (8.5-10.1); Estimated CRCL calculation 39 ml/min; Estimated Glomerular Filt Rate 53; Glucose 116 mg/dL (70-99); Lipase 105 U/L (73-393); Total Protein 6.6 g/dL (6.4-8.2)
[2019-09-29 13:59] LABS: Lactic Acid Reflex 1.7 mmol/L (0.4-2.0)
[2019-09-29 14:02] LABS: Carbon Dioxide 36 mmol/L (21-32)
[2019-09-29 14:04] LABS: CRP 0.4 mg/dL (0.0-0.9)
[2019-09-29 14:31] VITALS: BP 119/78; PULSE 103; RESP 18; O2SAT 95
[2019-09-29] MEDS: MAG HYDROX/ALUMINUM HYD/SIMETH 30 ML, PHENobarb/HYOSCY/ATROPINE/SCOP 32.4 MG, LIDOCAINE... PO (15:05)
[2019-09-29 15:49] VITALS: BP 94/79; PULSE 99; RESP 18; O2SAT 93
--- NOTE | 2019-09-29 16:10 | PC.NURSE ---
Pt requesting iv be removed and would like to be discharged. Pt states she does not want to wait for the fluids to finish. Edp aware.
[2019-09-29 16:14] VITALS: BP 102/67; PULSE 95; RESP 16; O2SAT 95
[2019-09-29 17:29] LABS: Osmolality Calculated 270 mOsm/kg (285-295)
[2019-09-29 17:30] LABS: Anion Gap 5.8 mmol/L (7-16); Chloride 91 mmol/L (98-108); Potassium 2.8 mmol/L (3.5-5.1); Sodium 130 mmol/L (136-145)
== END 2019-09-29 16:13 | disposition home or self-care (01) ==
PROVIDERS: Emergency Provider Emergency Medicine
DX: E87.6 Hypokalemia (principal); K86.1 Other chronic pancreatitis
CPT/HCPCS: 36415; 74177; 80053; 82150; 83605; 83690; 85025; 86140; 96361; 96374; 99284; A9270; J1170; J7030; Q9965

== ENCOUNTER 2019-10-11 17:08 | Emergency (ER) | payer MEDICARE, MEDICAID, SELFPAY ==
--- NOTE | ~2019-10-11 | CT_ITS ---
EXAMINATION: CT abdomen pelvis w con EXAM DATE: 10/11/2019 18:32 INDICATION: Abdominal pain, nausea and vomiting. History pancreatitis. TECHNIQUE: Spiral CT of the abdomen and pelvis was performed following intravenous injection of 100 m L Omnipaque 350. Axial, coronal and sagittal images were reviewed. The dose-length product (DLP) fo r this examination was 296.64 mGy-cm. The exposure was tailored according to patient size (auto mA e xposure control), and iterative reconstruction (ASIR) was used as additional dose reduction technique . Comparison is made to prior examination from 09/29/2019, 06/24/2019. FINDINGS: Chronic pancreatitis. The liver, spleen, adrenal glands and pancreas are otherwise unremar kable. There are cholecystectomy clips. Portal and splenic veins are patent. Kidneys enhance symme trically. There is no hydronephrosis. The uterus is not identified and has likely been surgically resected. The bladder is unremarkable. There is no retroperitoneal or pelvic lymphadenopathy. The re is moderate scattered arteriosclerotic disease. The appendix is not positively visualized. There is no pericecal inflammatory change to suggest appe ndicitis. The stomach and small bowel are unremarkable. There is moderate amount of colonic stool. No free intraperitoneal gas. The heart is normal in size. There are no pericardial or pleural e ffusions. There is 4 mm right lower lobe noncalcified granuloma unchanged. Chronic T12 burst fractu re, with T12 laminectomies, [place] rods unchanged. There is right hip gamma nail. There are no os teoblastic or osteolytic lesions identified. IMPRESSION: 1. No acute intra-abdominal findings. 2. Moderate amount of colonic stool. 3. Chronic pancreatitis. Reviewed, dictated and finalized at location A.
[2019-10-11 16:57] VITALS: BP 159/120; PULSE 115; RESP 20; TEMP 36.6; O2SAT 96
--- NOTE | 2019-10-11 17:10 | ED.ABDPAIN ---
HPI - Abdominal Pain General Chief Complaint: Abdominal Pain Stated Complaint: Abd pain Source: patient Mode of arrival: ambulatory Limitations: no limitations History of Present Illness HPI narrative: Patient is a 63-year-old female who presents to emergency department for evaluation of abdominal pain with nausea and vomiting history of chronic pancreatitis patient notes generalized abdominal pain worse with p.o. intake attempted home medications with minimal improvement followed by gastroenterology similar occurrences in the past patient notes today after eating she experienced emesis with generalized body aches and pain to the abdomen patient has a few loose stools but denies rectal bleeding hematemesis Related Data Home Medications Medication Instructions Recorded Confirmed hyoscyamine sulfate 0.125 mg PO QID 09/29/19 09/29/19 [id number] [Creon] 1 cap PO HS 09/29/19 09/29/19 [id number] [Creon] 2 cap PO QAM 09/29/19 09/29/19 omeprazole 20 mg PO DAILY 09/29/19 09/29/19 sucralfate 1 g PO TID 09/29/19 09/29/19 Allergies Allergy/AdvReac Type Severity Reaction Status Date / Time aspirin Allergy Unknown Unknown Verified 11/30/18 20:28 codeine Allergy Unknown Rash Verified 06/24/19 10:19 Penicillins Allergy Unknown Unknown Verified 11/30/18 20:28 Sulfa (Sulfonamide Allergy Unknown Unknown Verified 11/30/18 20:28 Antibiotics) Review of Systems Review of Systems: All systems reviewed & are unremarkable except as noted in HPI and below PMFSH Past Medical History Medical History GERD (gastroesophageal reflux disease) Pancreatitis Surgical History Surgical History H/O shoulder surgery right History of ankle surgery right History of hip surgery right Hx of cholecystectomy Previous back surgery Family History Family History Father Cancer Mother Cancer Social History Social History Smoking status: Current some day smoker Tobacco type: cigarettes Second hand tobacco smoke exposure: Yes Alcohol intake: never Substance use: never Substance use type: does not use Gender identity (if verbalized by the patient): Female Spiritual care concerns: No Agree to blood products: Yes Exam Narrative: Exam Narrative: GENERAL: Well-appearing, thin, uncomfortable, and in no acute distress. HEAD: Normocephalic, atraumatic. EYES: PERRLA and EOMI. ENT: Nares clear, no rhinorrhea or epistaxis. Mucous membranes moist. CHEST: Clear to auscultation. No respiratory distress. No wheezes rales or rhonchi HEART: Regular rate and rhythm. No murmur heard. Normal peripheral pulses. ABDOMEN: Firm with generalized tenderness, nondistended, normal active bowel sounds. EXTREMITIES: Normal range of motion. No edema. SKIN: Warm, dry, no rash. NEURO: No focal deficits. Alert and oriented x3. Cranial nerves II through XII grossly intact PSYCH: Normal mood and affect. Course Course Emergency Course: Patient in the room aware of case findings treatment plan and diagnosis resolution of symptoms with medications no high risk changes in the blood work or imaging will be discharged home with follow-up with gastroenterology given reasons to return Vital Signs Vital signs: Vital Signs Temperature 97.8 F 10/11/19 16:57 Pulse Rate 115 H 10/11/19 16:57 Respiratory Rate 10/11/19 16:57 Blood Pressure 159/120 H 10/11/19 16:57 Pulse Oximetry 96 10/11/19 16:57 Temperature 97.8 F 10/11/19 16:57 Pulse Rate 115 H 10/11/19 16:57 Respiratory Rate 10/11/19 16:57 Blood Pressure 159/120 H 10/11/19 16:57 Pulse Oximetry 96 10/11/19 16:57 MDM - Abdominal Pain MDM Narrative Medical decision making narrative: Patient in the room in no distress brandon
[2019-10-11 17:30] LABS: Basophils Percent Auto 0.3 % (0.2-1.2); Eosinophils Absolute Auto 0.1 K/mm3 (0-0.3); Eosinophils Percent Auto 1.1 % (0-4.4); Hematocrit 41.5 % (37.0-47.0); Hemoglobin 13.8 g/dL (12.0-15.0); Immature Granulocyte Absolute 0.02 K/mm3 (0.00-0.031); Immature Granulocyte Percent A 0.3 % (0-0.5); Lymphocytes Absolute Auto 1.56 K/mm3 (0.9-3.2); Lymphocytes Percent Auto 24.6 % (18.3-44.2); Mean Corpuscular HGB Conc 33.3 g/dl (32-36); Mean Corpuscular Hemoglobin 31.9 pg (26-34); Mean Corpuscular Volume 96.1 fl (80-100); Monocytes Absolute Auto 0.3 K/mm3 (0.1-0.6); Monocytes Percent Auto 4.6 % (2.6-8.5); Neutrophils Absolute Auto 4.4 K/mm3 (1.3-6.7); Neutrophils Percent Auto 69.1 % (45.5-73.1); Platelet Count Result 194 k/mm3 (150-375); Red Blood Count 4.32 M/mm3 (4.2-5.4); Red Cell Distribution Width 13.5 % (11.5-14.5); White Blood Count 6.3 K/mm3 (4.5-10.0)
[2019-10-11] MEDS: SODIUM CHLORIDE 0.9% IV 1,000 ML 999 ML IV CONT (17:32)
[2019-10-11] MEDS: diphenhydrAMINE HCl INJ 50 MG/ML VIAL 25 MG IV PUSH (17:36)
[2019-10-11] MEDS: FAMOTIDINE 20 MG/2 ML VIAL IV PUSH (17:36)
[2019-10-11] MEDS: METOCLOPRAMIDE HCL INJ 10 MG/2 ML VIAL IV PUSH (17:36)
[2019-10-11] MEDS: MORPHINE SULFATE 4 MG/ML INJ IV PUSH (17:36)
[2019-10-11 17:41] LABS: Lactic Acid Reflex 0.8 mmol/L (0.7-2.1)
[2019-10-11 17:42] LABS: Alanine Aminotransferase 23 U/L (4-35); Albumin Level 3.8 g/dL (3.5-5.1); Alkaline Phosphatase 112 U/L (38-126); Anion Gap 7 mmol/L (8-16); Aspartate Amino Transferase 27 U/L (14-36); Bilirubin,Total 0.2 mg/dL (0.2-1.3); Blood Urea Nitrogen 10 mg/dL (7-17); Calcium 8.6 mg/dL (8.4-10.2); Carbon Dioxide 28 mmol/L (22-30); Chloride 100 mmol/L (98-107); Estimated Glomerular Filt Rate > 60; Glucose 120 mg/dL (65-105); Lipase 23 U/L (23-300); Potassium 3.5 mmol/L (3.4-5.0); Sodium 135 mmol/L (137-145)
--- NOTE | 2019-10-11 17:50 | ECG_ITS ---
Measurements Intervals [place] Rate: 85 P: 67 MD: 165 QRS: 38 QRSD: 85 T: 73 QT: 321 QTc: 382 Interpretive Statements SINUS TACHYCARDIA ATRIAL PREMATURE COMPLEX BASELINE ARTIFACT- V1-V2 ABNORMAL ECG Electronically Signed On 10-12-2019 7:31:14 CDT by Santana Retana D.O.
[2019-10-11 20:05] VITALS: BP 111/82; PULSE 88; RESP 17; O2SAT 100
== END 2019-10-11 20:06 | disposition home or self-care (01) ==
PROVIDERS: Emergency Medicine Emergency Medical Services; Emergency Provider Emergency Medicine
DX: K86.1 Other chronic pancreatitis (principal); R10.84 Generalized abdominal pain; K21.9 Gastro-esophageal reflux disease without esophagitis; R00.0 Tachycardia, unspecified; I49.1 Atrial premature depolarization
CPT/HCPCS: 36415; 74177; 80053; 83605; 83690; 85025; 93005; 96365; 96375; 99284; J0131; J1200; J2270; J2765; J7030; Q9967

== ENCOUNTER 2019-11-08 13:57 | Inpatient (IN) | payer MEDICARE, MEDICAID, SELFPAY ==
[2019-11-08] VITALS (11 sets, daily range): BP systolic 133–212; BP diastolic 88–118; PULSE 64–77; RESP 12–25; TEMP 36–37.2; O2SAT 94–100; BMI 18.1
--- NOTE | ~2019-11-08 | CT_ITS ---
EXAMINATION: CT abdomen pelvis w con DATE: 11/08/2019 15:13 INDICATION: Upper abdominal pain. History of pancreatitis. TECHNIQUE: Computed tomography (CT) of the abdomen and pelvis was performed with 100 cc Omnipaque 350 intravenous contrast. Automated exposure control and iterative reconstruction technique were employe d. Exam dose: 295.39 mGy-cm total exam DLP. COMPARISON: 10/11/2019 CT abdomen pelvis FINDINGS: 5 mm right lower lobe pulmonary nodule. No infiltrate or consolidation in the lower lung zo itng. Normal heart size. No pericardial or pleural effusion. Status post cholecystectomy. There are hepatic and splenic calcified granulomas. No hepatic, splenic, pancreatic, adrenal or renal space-occupying mass lesion is evident. Several very small renal cysts are suggested. There are innumerable pancreatic calcifications consistent with chronic pancreatitis. There is atherosclerotic calcification of the abdominal aorta and iliac and femoral arteries but no e vidence of aneurysm. No intraperitoneal or retroperitoneal or pelvic mass lesion or adenopathy or asc ites is evident. The urinary bladder is unremarkable. Status post hysterectomy. Diffuse osteopenia. There are pedicle screws and rods in the thoracolumbar area from T10 to L2. There are moderate anterior wedge compression fracture deformity of T11, prominent compression fracture de formity of T12, moderate to wedge compression fracture deformity of L1 and L4 and moderate anterior w edge compression fracture deformity of L3. Degenerative changes of the lower thoracic and lumbar spine including severe degenerative disc diseas e at L2-3 and L4-5 particular. Compression screw and intramedullary joshua of proximal right femur. IMPRESSION: Extensive aortic calcifications consistent with chronic pancreatitis Status post cholecystectomy Status post hysterectomy Reviewed, dictated and finalized at Location [facility]. Reviewed, dictated and finalized at location A. IMPRESSION: Extensive aortic calcifications consistent with chronic pancreatit is Status post cholecystectomy Status post hysterectomy
[2019-11-08 14:22] LABS: Basophils Percent Auto 0.3 % (0.2-1.2); Eosinophils Percent Auto 0.1 % (0-4.4); Hematocrit 47.6 % (37.0-47.0); Immature Granulocyte Absolute 0.03 K/mm3 (0.00-0.031); Immature Granulocyte Percent A 0.4 % (0-0.5); Lymphocytes Absolute Auto 0.77 K/mm3 (0.9-3.2); Lymphocytes Percent Auto 9.8 % (18.3-44.2); Mean Corpuscular HGB Conc 33.6 g/dl (32-36); Mean Corpuscular Hemoglobin 32.3 pg (26-34); Mean Platelet Volume 8.7 fl (7.4-10.4); Monocytes Absolute Auto 0.3 K/mm3 (0.1-0.6); Monocytes Percent Auto 3.2 % (2.6-8.5); Neutrophils Absolute Auto 6.8 K/mm3 (1.3-6.7); Neutrophils Percent Auto 86.2 % (45.5-73.1); Platelet Count Result 266 k/mm3 (150-375); Red Blood Count 4.96 M/mm3 (4.2-5.4); Red Cell Distribution Width 14.3 % (11.5-14.5); White Blood Count 7.9 K/mm3 (4.5-10.0)
[2019-11-08 14:34] LABS: Alanine Aminotransferase 24 U/L (4-35); Albumin Level 5.1 g/dL (3.5-5.1); Alkaline Phosphatase 129 U/L (38-126); Anion Gap 10 mmol/L (8-16); Aspartate Amino Transferase 30 U/L (14-36); Bilirubin,Total 0.3 mg/dL (0.2-1.3); Blood Urea Nitrogen 13 mg/dL (7-17); Calcium 10.1 mg/dL (8.4-10.2); Carbon Dioxide 28 mmol/L (22-30); Chloride 101 mmol/L (98-107); Estimated CRCL calculation 62 ml/min; Estimated Glomerular Filt Rate > 60; Glucose 147 mg/dL (65-105); Lipase 51 U/L (23-300); Sodium 139 mmol/L (137-145)
[2019-11-08] MEDS: SODIUM CHLORIDE 0.9% IV 1,000 ML 999 ML IV CONT (15:02)
[2019-11-08 15:36] LABS: Add Urine Microscopic? YES; Appearance Urine Clear (Clear); Bilirubin Urine Negative (Negative); Blood Urine Negative (Negative); Color Urine Straw (Yellow); Glucose Urine UA Negative (Negative); Ketones Urine Negative (Negative); Leukocyte Esterase Ur Negative LEU/UL (Negative); Nitrate Urine Negative (Negative); Protein Urine 2+ mg/dL (Negative); RBC Urine 0-2 /hpf (0-2); Specific Grav Ur 1.018 (1.001-1.035); Urobilinogen Urine Negative mg/dL (<2.0); WBC Urine 0-3 /hpf
[2019-11-08] MEDS: ONDANSETRON INJ 4 MG/2 ML VIAL IV PUSH ×2 (15:46→22:23)
[2019-11-08] MEDS: LABETALOL HCL INJ 100 MG/20 ML VIAL 20 MG IV PUSH ×2 (15:48→18:12)
--- NOTE | 2019-11-08 16:34 | ED.ABDPAIN ---
HPI - Abdominal Pain General Chief Complaint: Abdominal Pain Stated Complaint: Upper abdominal pain Time Seen by Provider: 11/08/19 14:47 Source: patient Mode of arrival: EMS Limitations: no limitations History of Present Illness HPI narrative: 65 years old white female presented by ambulance because of epigastric pain started in the morning associated with nausea and frequent vomiting. Patient had similar symptoms 2 months ago of unknown diagnosis. Patient denies any fever, chills, diarrhea, coughing, shortness of breath, back pain. Currently patient on amitriptyline. Currently is a smoker, does not drink, lives alone. Does not know the underlying cause of her history of chronic pancreatitis. Patient scheduled to see a slab lifting engineer next week Related Data Allergies Allergy/AdvReac Type Severity Reaction Status Date / Time aspirin Allergy Unknown Unknown Verified 11/08/19 14:46 codeine Allergy Unknown Rash Verified 11/08/19 14:46 Penicillins Allergy Unknown Unknown Verified 11/08/19 14:46 Sulfa (Sulfonamide Allergy Unknown Unknown Verified 11/08/19 14:46 Antibiotics) Review of Systems Review of Systems: Narrative: CONSTITUTIONAL: Denies fever, chills, or sweats. EYES: Denies visual changes, redness, or discharge. ENT: Denies rhinorrhea, congestion, sore throat, or otalgia. CARDIOVASCULAR: Denies chest pain, palpitations, or edema. RESPIRATORY: Denies cough or dyspnea. GASTROINTESTINAL: Upper abdominal pain GENITOURINARY: Denies dysuria or hematuria. SKIN: Denies rash or itching. MUSCULOSKELETAL: Denies back pain, joint pain, or myalgia. NEUROLOGIC: Denies headache, numbness, or weakness. PSYCHIATRIC: Denies anxiety or depression. [facility] Past Medical History Medical History GERD (gastroesophageal reflux disease) Pancreatitis Surgical History Surgical History H/O shoulder surgery right History of ankle surgery right History of hip surgery right Hx of cholecystectomy Previous back surgery Family History Family History Father Cancer Mother Cancer Social History Social History Smoking status: Current some day smoker Tobacco type: cigarettes Second hand tobacco smoke exposure: Yes Alcohol intake: never Substance use: never Substance use type: does not use Gender identity (if verbalized by the patient): Female Spiritual care concerns: No Agree to blood products: Yes Exam Narrative: Exam Narrative: General appearance: Well-developed, well-nourished Skin: Normal color Head: Normocephalic, nontraumatic Eyes: Clear conjunctiva ENT: Oropharynx normal, ears normal, nose normal Neck: Supple, nontender Chest and respiratory: Airway patent, no respiratory distress, no accessory muscle use Heart: Regular rate/rhythm Abdomen: Soft, moderate tenderness epigastric area, no guarding or rebound Vascular: Normal peripheral pulses, normal capillary refill. 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 challenge. Still in pain and still having nausea and vomiting. Blood pressure is still elevated. Patient will be admitted to telemetry for further evaluation. Date: 11/08/19 Time: 17:59 Vital Signs Vital signs: Vital Signs Temperature 36.0 C L 11/08/19 14:06 Pulse Rate 69 11/08/19 14:06 Res
--- NOTE | 2019-11-08 16:43 | ECG_ITS ---
Measurements Intervals [place] Rate: 67 P: 48 [place]: 168 QRS: 41 QRSD: 88 T: 54 QT: 412 QTc: 435 Interpretive Statements SINUS RHYTHM BASELINE WANDER- V3-V5 NORMAL ECG Electronically Signed On 11-08-2019 17:39:39 CDT by Santana Retana D.O.
[2019-11-08 17:13] LABS: Troponin I < 0.012 ng/mL (0.000-0.034)
--- NOTE | 2019-11-08 17:39 | PC.NURSE ---
Attempted PO challenge, unsuccessful at this time. Patient vomit x 1. Dr. English notified.
[2019-11-08] MEDS: SODIUM CHLORIDE 0.9% IV 1,000 ML 125 ML IV CONT (20:18)
--- NOTE | 2019-11-08 20:28 | ADMGEN ---
This patient, Heather Carpio, was admitted to [facility] Surg Room 319-01 at 1940. Patient/family oriented to hospital policies and general routines including ID bracelet, bed and alarms, visiting hours, pain management, procedures, bathroom and other care routines, personal items, smoking policy, room service/diet, and visiting hours. Valuables list has been completed. Information on how to activate the Rapid Response Team has been discussed. Patient/Family are encouraged to report perceived risks to care and to ask questions if they do not understand what they are told or what they should do.
[2019-11-09] VITALS (11 sets, daily range): BP systolic 101–124; BP diastolic 64–90; PULSE 60–85; RESP 14–20; TEMP 36.1–37.2; O2SAT 90–96
[2019-11-09] MEDS: ONDANSETRON INJ 4 MG/2 ML VIAL IV PUSH ×4 (02:23→17:21)
[2019-11-09] MEDS: SODIUM CHLORIDE 0.9% IV 1,000 ML 125 ML IV CONT ×2 (06:23→17:20)
[2019-11-09] MEDS: PANTOPRAZOLE SODIUM IV 40 MG VIAL IV PUSH (08:57)
--- NOTE | 2019-11-09 09:58 | PM.IMHP ---
H&P: HPI History of Present Illness Date/Time: 11/09/19 09:58 Chief complaint: Epigastric pain, intractable vomiting Narrative: Date of visit 11/08 929. Heather Carpio is a 64 year old female with idiopathic chronic pancreatitis who presented to the emergency room on the with complaints of abdominal pain nausea vomiting and diarrhea that had started that a.m.. No hematemesis melena hematochezia. She is status post cholecystectomy probably 10 years ago and does not drink alcohol. Last episode about 5 months ago when she was hospitalized at [facility] where symptoms slowly subsided. In the interim she says she has done fairly well without any significant pain and had and MRCP which showed no specific findings other than possible stone in the head of the pancreas. She has never had an EGD and no history of peptic disease to her knowledge. Was scheduled to have outpatient EGD on more than 1 occasion but was canceled. she relates that she has been have been intermittent abdominal pain for probably 2 years but worse the last year with this the 2nd hospitalization. Review of Systems Review of Systems: Narrative: constitutional her weight has been fairly steady and appetite good in between episodes. Eye No double vision scotoma mouth no pharyngitis laryngitis pulmonary no shortness breath wheezing or cough CV no chest pain or palpitation GI no melena or hematochezia no dysuria no hematuria muscle skeletal she has some chronic right hip and shoulder pain does well as ankle after injury incurred in 2017 with surgery neuro history of seizure after head trauma 2017. took anticonvulsants for approximately year and discontinued with no recurrence integument no skin breakdown rashes PMFSH Past Medical History Medical History (Updated 11/09/19 @ 10:13 by Theo Vela MD) GERD (gastroesophageal reflux disease) Pancreatitis Seizure after head injury Surgical History Surgical History H/O shoulder surgery right History of ankle surgery right History of hip surgery right Hx of cholecystectomy Previous back surgery Family History Family History (Updated 11/08/19 @ 20:30 by Cristina Schrader RN) Father , age 67 Cancer Mother , age 70 Malignant melanoma Other Testicular cancer Social History Social History Years smoked: 30 Smoking status: Current every day smoker Tobacco type: cigarettes Second hand tobacco smoke exposure: Yes Alcohol intake: never Substance use: never Substance use type: marijuana Other substance usage details: a few weeks ago when she was nauseous she tried her son's. Gender identity (if verbalized by the patient): Female Spiritual care concerns: No Agree to blood products: Yes Meds Home Medications and Allergies Home Medications Medication Instructions Recorded Confirmed Type amitriptyline 100 mg PO HS 30 Days #30 tablet 06/26/19 11/08/19 Rx Allergies Allergy/AdvReac Type Severity Reaction Status Date / Time aspirin Allergy Unknown Unknown Verified 11/08/19 14:46 codeine Allergy Unknown Rash Verified 11/08/19 14:46 Penicillins Allergy Unknown Unknown Verified 11/08/19 14:46 Sulfa (Sulfonamide Allergy Unknown Unknown Verified 11/08/19 14:46 Antibiotics) Vital Signs Vital Signs - 24 hr 11/08/19 14:06 11/08/19 14:50 11/08/19 15:31 Temperature 36.0 C L Pulse Rate 69 66 77 Respiratory Rate 17 12 18 Blood Pressure 208/89 H 212/109 H 205/94 H Pulse Oximetry 100 99 96 11/08/19 16:08 11/08/19 16:17 11/08/19 17:43 Temperature 36.0 C L Pulse Rate 66 64 Respiratory Rate 12 25 H Blood Pressure 199/118 H 193/112 H Pulse Oximetry 97 97 11/08/19 18:12 11/08/19 18:33 11/08/19 18:40 Temperature 36.0 C L Pulse Rate 71 71 Respiratory Rate 20 19 Blood Pressure
[2019-11-09 10:39] LABS: Cholesterol 184 mg/dL (0-200); HDL Direct 74 mg/dL; Triglycerides 126 mg/dL (<150)
[2019-11-09 10:40] LABS: Alanine Aminotransferase 15 U/L (4-35); Alkaline Phosphatase 90 U/L (38-126); Anion Gap 7 mmol/L (8-16); Aspartate Amino Transferase 23 U/L (14-36); Bilirubin,Total 0.4 mg/dL (0.2-1.3); Blood Urea Nitrogen 13 mg/dL (7-17); Calcium 8.7 mg/dL (8.4-10.2); Carbon Dioxide 26 mmol/L (22-30); Chloride 103 mmol/L (98-107); Estimated CRCL calculation 63 ml/min; Estimated Glomerular Filt Rate > 60; Glucose 95 mg/dL (65-105); Magnesium 1.4 mg/dL (1.6-2.3); Phosphorus 3.6 mg/dL (2.5-4.5); Potassium 3.6 mmol/L (3.4-5.0); Sodium 136 mmol/L (137-145)
[2019-11-09 10:49] LABS: LDL Cholesterol Direct 76 mg/dL
[2019-11-09 10:53] LABS: Hemoglobin A1C 5.3 % (<5.7)
--- NOTE | 2019-11-09 10:54 | PC.NURSE ---
Voicemail left with Dr. Marin's office on their emergency line at [phone]. Awaiting call back to confirm consultation.
[2019-11-09 11:30] LABS: Vitamin D 25 Hydroxy 25.6 ng/mL
[2019-11-09] MEDS: MAGNESIUM SULF 2 GM/WATER 50ML 2 GM/50 ML BAG IVPB (14:47)
[2019-11-09] MEDS: POTASSIUM CHLORIDE 20 MEQ TABLET 40 MEQ PO (14:50)
--- NOTE | 2019-11-09 18:48 | PC.NURSE ---
Updated Dr Vela throughout the day about patients pain.
[2019-11-09] MEDS: ENOXAPARIN 40 MG/0.4 ML SYRINGE SUB-Q (20:40)
[2019-11-09] MEDS: AMITRIPTYLINE HCL 25 MG TABLET 100 MG PO (20:42)
[2019-11-10] VITALS (10 sets, daily range): BP systolic 127–151; BP diastolic 76–97; PULSE 73–100; RESP 18–20; TEMP 36.1–37.4; O2SAT 91–96
[2019-11-10] MEDS: SODIUM CHLORIDE 0.9% IV 1,000 ML 125 ML IV CONT ×4 (02:43→21:32)
--- NOTE | 2019-11-10 07:05 | WPDGICN ---
Assessment and Plan Assessment and plan (1) Abdominal pain: Qualifiers: Abdominal location: epigastric Qualified Code(s): R10.13 - Epigastric pain Code(s): R10.9 - Unspecified abdominal pain Status: Acute Assessment and Plan: Abdominal pain is difficult to assess at this time. The etiology is somewhat unclear in the true nature undefined. Plan is for an EGD to assess the abdominal pain tomorrow morning. We will check serum lipase. Continue to follow closely. (2) Chronic pancreatitis: Qualifiers: Pancreatitis type: unspecified pancreatitis type Qualified Code(s): K86.1 - Other chronic pancreatitis Code(s): K86.1 - Other chronic pancreatitis Status: Acute Assessment and Plan: Pancreatic calcifications noted on CT scan raise a question chronic pancreatitis. Etiology unclear. It is uncertain how this contributes to her pain but certainly as potential etiologic factor. Patient has been followed by Dr. Ly and would expect patient to return to his care after discharge. (3) Anxiety: Code(s): F41.9 - Anxiety disorder, unspecified Status: Acute Assessment and Plan: Anxiety seems to be a big component of this discomfort. GI Consult Note Consult date/time: 11/10/19 07:05 HPI: Heather Carpio is a 64 year old female I am asked to see because of abdominal pain. Patient is quite anxious. She states she has had pain for many years. She at sometimes describes is a chest pain also is a groin pain variously described it is squeezing it may or may not be aggravated by diet her bowel habits. Patient gives a history of a cholecystectomy more than 10 years ago. She has had imaging studies that revealed pancreatic calcifications suggesting possible chronic pancreatitis. Patient denies significant alcohol intake. Review of Systems Review of Systems: All systems reviewed & are unremarkable except as noted in HPI and below PMFSH Past Medical History Medical History GERD (gastroesophageal reflux disease) Pancreatitis Seizure after head injury Surgical History Surgical History H/O shoulder surgery right History of ankle surgery right History of hip surgery right Hx of cholecystectomy Previous back surgery Family History Family History Father , age 67 Cancer Mother , age 70 Malignant melanoma Other Testicular cancer Social History Social History Years smoked: 30 Smoking status: Current every day smoker Tobacco type: cigarettes Second hand tobacco smoke exposure: Yes Alcohol intake: never Substance use: never Substance use type: marijuana Other substance usage details: a few weeks ago when she was nauseous she tried her son's. Gender identity (if verbalized by the patient): Female Spiritual care concerns: No Agree to blood products: Yes Meds Home Medications and Allergies Home Medications Medication Instructions Recorded Confirmed Type amitriptyline 100 mg PO HS 30 Days #30 tablet 06/26/19 11/08/19 Rx Allergies Allergy/AdvReac Type Severity Reaction Status Date / Time aspirin Allergy Unknown Unknown Verified 11/08/19 14:46 codeine Allergy Unknown Rash Verified 11/08/19 14:46 Penicillins Allergy Unknown Unknown Verified 11/08/19 14:46 Sulfa (Sulfonamide Allergy Unknown Unknown Verified 11/08/19 14:46 Antibiotics) Vital Signs Vital Signs - 24 hr 11/09/19 08:00 11/09/19 10:00 11/09/19 12:00 Temperature 96.9 F L Pulse Rate 80 71 67 Respiratory Rate 14 Blood Pressure 101/64 Pulse Oximetry 92 11/09/19 15:17 11/09/19 16:00 11/09/19 18:51 Temperature 98.2 F 97.1 F L Pulse Rate 78 60 72 Respiratory Rate 14 16 Blood Pressure 116
[2019-11-10 07:15] LABS: Basophils Percent Auto 0.2 % (0.2-1.2); Eosinophils Absolute Auto 0.1 K/mm3 (0-0.3); Hematocrit 40.4 % (37.0-47.0); Immature Granulocyte Absolute 0.01 K/mm3 (0.00-0.031); Immature Granulocyte Percent A 0.2 % (0-0.5); Lymphocytes Absolute Auto 1.08 K/mm3 (0.9-3.2); Mean Corpuscular HGB Conc 32.2 g/dl (32-36); Mean Corpuscular Hemoglobin 31.5 pg (26-34); Mean Corpuscular Volume 97.8 fl (80-100); Mean Platelet Volume 8.7 fl (7.4-10.4); Monocytes Absolute Auto 0.4 K/mm3 (0.1-0.6); Monocytes Percent Auto 8.8 % (2.6-8.5); Neutrophils Absolute Auto 3.3 K/mm3 (1.3-6.7); Neutrophils Percent Auto 67.8 % (45.5-73.1); Platelet Count Result 180 k/mm3 (150-375); Red Blood Count 4.13 M/mm3 (4.2-5.4); Red Cell Distribution Width 14.1 % (11.5-14.5); White Blood Count 4.9 K/mm3 (4.5-10.0)
[2019-11-10 07:32] LABS: Alanine Aminotransferase 88 U/L (4-35); Albumin Level 3.9 g/dL (3.5-5.1); Alkaline Phosphatase 131 U/L (38-126); Anion Gap 5 mmol/L (8-16); Aspartate Amino Transferase 131 U/L (14-36); Bilirubin,Total 0.3 mg/dL (0.2-1.3); Blood Urea Nitrogen 11 mg/dL (7-17); Calcium 8.5 mg/dL (8.4-10.2); Carbon Dioxide 27 mmol/L (22-30); Chloride 103 mmol/L (98-107); Estimated CRCL calculation 63 ml/min; Estimated Glomerular Filt Rate > 60; Glucose 95 mg/dL (65-105); Magnesium 1.7 mg/dL (1.6-2.3); Potassium 4.1 mmol/L (3.4-5.0); Sodium 135 mmol/L (137-145)
[2019-11-10] MEDS: PANTOPRAZOLE SODIUM IV 40 MG VIAL IV PUSH (08:37)
[2019-11-10] MEDS: NALOXONE HCL 0.4 MG/ML VIAL (09:47)
--- NOTE | 2019-11-10 10:00 | PC.NURSE ---
Patient was unresponsive when Dr. Vela was at the bedside. Patient O2 Sat low and P-130's. Oxygen at 4 L applied and Narcan given. Patient awake and talking. O2 Sat 92% on room air and P-106
[2019-11-10] MEDS: ONDANSETRON INJ 4 MG/2 ML VIAL IV PUSH (14:13)
--- NOTE | 2019-11-10 15:50 | PM.IMPN ---
Progress Note: A&P Assessment and Plan (1) Abdominal pain: Qualifiers: Abdominal location: epigastric Qualified Code(s): R10.13 - Epigastric pain Code(s): R10.9 - Unspecified abdominal pain Status: Acute Assessment and Plan: thought secondary to her chronic pancreatitis. Pain control with hydration (2) Chronic pancreatitis: Qualifiers: Pancreatitis type: unspecified pancreatitis type Qualified Code(s): K86.1 - Other chronic pancreatitis Code(s): K86.1 - Other chronic pancreatitis Status: Acute Assessment and Plan: no definite etiology being found. Will check lipids because cannot find report of triglycerides on the chart. Will have her seen by GI for EGD to be done (3) Acute dehydration: Code(s): E86.0 - Dehydration Status: Acute Assessment and Plan: secondary to nausea and vomiting. Evidence by hemoconcentration with elevated hemoglobin. on admission Continue hydration and follow labs (4) DVT prophylaxis: Code(s): Z29.9 - Encounter for prophylactic measures, unspecified Status: Acute Assessment and Plan: Lovenox Subjective Date/time seen: 11/10/19 15:50 Interval history: 64-year-old white female with history of chronic pancreatitis admitted with nausea and vomiting and increasing abdominal pain the few days prior to admission. Did better with high-dose Dilaudid but becoming more lethargic and had to use Narcan and reverse. GI saw and plan on EGD in a.m. Exam Narrative: Exam Narrative: blood pressure 114/68 pulse is 70 sat 93% on room air afebrile general is thin lady in some mild distress from the pain pupils equal reactive to light sclera anicteric mouth mucosa normal after hydration neck supple no adenopathy thyromegaly carotid bruits lungs clear no wheezing consolidation CV regular rate rhythm no murmurs or gallops abdomen is soft bowel sounds are present there is tenderness in the epigastric area with no rebound or guarding extremities without edema dorsalis pedis posterior tibial 2+ neuro alert cooperative no focal deficits cranial nerves 2-12 are intact integument no skin breakdown rashes psych affect appears appropriate Objective Data Vital Signs Vital Signs: Vital Signs - 24 hr 11/09/19 16:00 11/09/19 18:51 11/09/19 20:00 Temperature 36.2 C L 36.6 C Pulse Rate 60 72 85 Respiratory Rate 16 18 Blood Pressure 111/64 124/73 Pulse Oximetry 93 96 11/10/19 00:00 11/10/19 02:00 11/10/19 04:00 Temperature 36.1 C L 36.1 C L Pulse Rate 73 94 100 Respiratory Rate 18 18 Blood Pressure 151/76 H 150/83 H Pulse Oximetry 95 91 11/10/19 08:00 11/10/19 12:00 Temperature Pulse Rate 80 82 Respiratory Rate Blood Pressure Pulse Oximetry Intake/Output Intake/Output: Intake & Output 11/07/19 11/08/19 11/09/19 11/10/19 23:59 23:59 23:59 23:59 Intake Total 1100 2950 2250 Output Total 3900 700 Balance 1100 -950 1550 Meds/Results Medications: Active Medications Generic Name Dose Route Start Last Admin Trade Name Freq PRN Reason Stop Dose Admin Amitriptyline HCl 100 mg 11/09/19 21:00 11/09/19 20:42 Elavil PO 100 mg HS PETRONA Administration Enoxaparin Sodium 40 mg 11/09/19 21:00 11/09/19 20:40 Lovenox SUB-Q 40 mg HS PETRONA Administration Hydromorphone HCl 1 mg 11/10/19 13:28 Dilaudid Inj IV PUSH Q4H PRN Pain Rated 7-10 Sodium Chloride 1,000 mls @ 125 mls/hr 11/08/19 18:10 11/10/19 10:50 Normal Saline Iv IV CONT 125 mls/hr .Q8H PETRONA Administration Ondansetron HCl 4 mg 11/08/19 18:00 11/10/19 14:13 Zofran Inj IV PUSH 4 mg Q4H PRN Administration Nausea Pantoprazole Sodium 40 mg 11/09/19 09:00 11/10/19 08:37 Protonix Iv IV PUSH 40 mg QAM PETRONA Administration Radiology Results: ITS Impressions Abdomen/Pelvis CT 11/08/19 15:21 IMPRESSION: Extensive aortic calcificat
[2019-11-10] MEDS: traMADol HCL 50 MG TABLET PO ×2 (18:33→23:58)
[2019-11-10] MEDS: AMITRIPTYLINE HCL 25 MG TABLET 100 MG PO (21:27)
[2019-11-10] MEDS: ENOXAPARIN 40 MG/0.4 ML SYRINGE SUB-Q (21:28)
[2019-11-11] VITALS (12 sets, daily range): BP systolic 97–160; BP diastolic 57–93; PULSE 68–98; RESP 18–27; TEMP 36.7–37.4; O2SAT 91–99
--- NOTE | 2019-11-11 01:48 | PC.NURSE ---
Lost IV access, after multiple attempts by RNs and Cnc Programmer, no IV access obtained at this time. Will notify Dr. Marin in the AM due to patient having a scheduled EGD later today.
--- NOTE | 2019-11-11 09:50 | PC.NURSE ---
To GI Lab via [facility].
--- NOTE | 2019-11-11 10:06 | WPDANESEPPF ---
Anes - Initial Pre Proc Eval Procedure: Operation Date: 11/11/19 10:00 Proposed Procedures p Esophagogastroduodenoscopy - Ravindra Marin MD Date/Time: 11/11/19 10:06 Surgeon: Theo Vela MD Pre Op Diagnosis: Epigastric pain, intractable vomiting Patient Data Age: 64 Gender: F Height: 5 ft 9 in Weight: 55.8 kg Last Vital Signs Temp 99.0 F 11/11/19 06:00 Pulse 81 11/11/19 06:00 Resp 20 11/11/19 06:00 BP 140/91 H 11/11/19 06:00 Pulse Ox 93 11/11/19 06:00 Allergies Allergy/AdvReac Type Severity Reaction Status Date / Time aspirin Allergy Unknown Unknown Verified 11/11/19 10:02 codeine Allergy Unknown Rash Verified 11/11/19 10:02 Penicillins Allergy Unknown Unknown Verified 11/11/19 10:02 Sulfa (Sulfonamide Allergy Unknown Unknown Verified 11/11/19 10:02 Antibiotics) acetaminophen [From Tylenol] Allergy Hives Verified 11/11/19 10:02 Home Medications Medication Instructions Recorded Confirmed Type amitriptyline 100 mg PO HS 30 Days #30 tablet 06/26/19 11/11/19 Rx Patient hx anesthesia problems: none Family hx anesthesia problems: none PMFSH Past Medical History Medical History GERD (gastroesophageal reflux disease) Pancreatitis Seizure after head injury Surgical History Surgical History H/O shoulder surgery right History of ankle surgery right History of hip surgery right Hx of cholecystectomy Previous back surgery Family History Family History Father , age 67 Cancer Mother , age 70 Malignant melanoma Other Testicular cancer Social History Social History Years smoked: 30 Smoking status: Current every day smoker Tobacco type: cigarettes Second hand tobacco smoke exposure: Yes Alcohol intake: never Substance use: never Substance use type: marijuana Other substance usage details: a few weeks ago when she was nauseous she tried her son's. Gender identity (if verbalized by the patient): Female Spiritual care concerns: No Agree to blood products: Yes Anes - Eval Final PreProcedure Day of Procedure 11/11/19 10:06 Patient weight: normal Heart: regular rate and rhythm Lungs: clear to auscultation Airway: Mallampati scale class II Neurological: alert and oriented Last oral intake: >/= 8 hours ASA classification: III Emergent: no Anesthetic plan: proceed Anesthesia type and monitoring: general GIVS and standard monitoring Informed Consent: The patient's anesthetic plan and its attendant risks and benefits were discussed with the patient/family/POA. Questions were solicited and answers provided to the satisfaction of the patient/family/POA.
[2019-11-11] MEDS: LACTATED RINGERS 1,000 ML 150 ML IV CONT (10:13)
--- NOTE | 2019-11-11 11:20 | PC.NURSE ---
Back from GI Lab via stretcher.
[2019-11-11] MEDS: PANTOPRAZOLE SODIUM IV 40 MG VIAL IV PUSH (11:46)
[2019-11-11] MEDS: LIPASE/AMYLASE/PROTEASE 12,000 UNITS CAP 1 CAP PO ×2 (11:46→16:58)
[2019-11-11] MEDS: traMADol HCL 50 MG TABLET PO ×2 (13:54→20:32)
[2019-11-11] MEDS: HYOSCYAMINE SULFATE 0.125 MG TABLET SUBLINGUAL ×2 (15:54→20:05)
--- NOTE | 2019-11-11 16:39 | PM.IMPN ---
Progress Note: A&P Assessment and Plan (1) Abdominal pain: Qualifiers: Abdominal location: epigastric Qualified Code(s): R10.13 - Epigastric pain Code(s): R10.9 - Unspecified abdominal pain Status: Acute Assessment and Plan: thought secondary to her chronic pancreatitis and possibly even component of IBS. will discontinue narcotics and try antispasmodics. GI has added pancreatic enzymes told if tolerates eating should be able to discharge 11/11 has scheduled GI appointment with faucets assembler in [place] and has had negative MRCP also (2) Chronic pancreatitis: Qualifiers: Pancreatitis type: unspecified pancreatitis type Qualified Code(s): K86.1 - Other chronic pancreatitis Code(s): K86.1 - Other chronic pancreatitis Status: Acute Assessment and Plan: no definite etiology being found. lipids normal. EGD today normal and no history of ETOH abuse pancreatic enzyme started today (3) Acute dehydration: Code(s): E86.0 - Dehydration Status: Acute Assessment and Plan: secondary to nausea and vomiting. Evidence by hemoconcentration with elevated hemoglobin. on admission . HGB fell with hydration and will saline lock IV now (4) DVT prophylaxis: Code(s): Z29.9 - Encounter for prophylactic measures, unspecified Status: Acute Assessment and Plan: Lovenox Subjective Date/time seen: 11/11/19 16:39 Interval history: Date of visit 11/10 64-year-old white female with history of chronic pancreatitis admitted with nausea and vomiting and increasing abdominal pain the few days prior to admission. Did better with high-dose Dilaudid but becoming more lethargic and had to use Narcan to reverse.11/09 EGD this a.m. normal. Ate breakfast without difficulty patient does seem very anxious Exam Narrative: Exam Narrative: blood pressure 110/54 pulse is 80 sat 95% on room air afebrile general is thin lady appears older than stated age complaining of abdominal pain pupils equal reactive to light sclera anicteric neck supple lungs clear CV regular rate rhythm no murmurs or gallops abdomen is soft bowel sounds are present there is tenderness in the epigastric area with no rebound or guarding extremities without edema dorsalis pedis posterior tibial 2+ neuro alert cooperative no focal deficits cranial nerves 2-12 are intact integument no skin breakdown rashes psych affect appears anxious Objective Data Vital Signs Vital Signs: Vital Signs - 24 hr 11/10/19 18:00 11/10/19 20:00 11/10/19 22:00 Temperature 36.4 C L 37.4 C Pulse Rate 90 88 81 Respiratory Rate 20 20 Blood Pressure 132/97 H 132/89 Pulse Oximetry 96 95 11/11/19 00:00 11/11/19 02:00 11/11/19 04:00 Temperature 36.9 C Pulse Rate 96 77 86 Respiratory Rate 20 Blood Pressure 147/93 H Pulse Oximetry 94 11/11/19 06:00 11/11/19 08:00 11/11/19 10:44 Temperature 37.2 C 36.7 C Pulse Rate 81 68 70 Respiratory Rate 20 18 18 Blood Pressure 140/91 H 128/63 106/64 Pulse Oximetry 93 99 98 11/11/19 10:55 11/11/19 11:05 11/11/19 12:00 Temperature 36.9 C Pulse Rate 73 75 79 Respiratory Rate 23 H 27 H 18 Blood Pressure 97/57 L 119/78 160/93 H Pulse Oximetry 97 97 99 11/11/19 16:00 Temperature 36.7 C Pulse Rate 80 Respiratory Rate 18 Blood Pressure 147/80 H Pulse Oximetry 96 Intake/Output Intake/Output: Intake & Output 11/08/19 11/09/19 11/10/19 11/11/19 23:59 23:59 23:59 23:59 Intake Total 1100 2950 4250 1240 Output Total 3900 1100 950 Balance 1100 -950 3150 290 Meds/Results Medications: Active Medications Generic Name Dose Route Start Last Admin Trade Name Freq PRN Reason Stop Dose Admin Amitriptyline HCl 100 mg 11/09/19 21:00 11/10/19 21:27 Elavil PO 100 mg HS PETRONA Administration Lipase/Protease/Amylase 1 cap 11/11/19 12:00 11/11/19 11:46 Elizabeth Luong 12,000 Units Capsule PO 1 cap T
[2019-11-11] MEDS: AMITRIPTYLINE HCL 25 MG TABLET 100 MG PO (20:05)
[2019-11-11] MEDS: ENOXAPARIN 40 MG/0.4 ML SYRINGE SUB-Q (20:08)
[2019-11-12] VITALS (7 sets, daily range): BP systolic 116–144; BP diastolic 74–89; PULSE 61–87; RESP 16–18; TEMP 36.8–36.9; O2SAT 93–97
[2019-11-12] MEDS: traMADol HCL 50 MG TABLET PO ×2 (05:05→12:22)
--- NOTE | 2019-11-12 09:26 | WPDANESPN ---
Anes - Prog Note Post-Op Date/Time: 11/12/19 09:26 Cardiovascular status: normal Respiratory status: normal Airway patency: baseline Mental status: baseline Post-Op hydration status: normal Vital Signs: Last Vital Signs Temp 36.9 C 11/12/19 06:00 Pulse 61 11/12/19 06:00 Resp 18 11/12/19 06:00 BP 144/89 H 11/12/19 06:00 Pulse Ox 93 11/12/19 06:00 Pain Score (VAS): 0 I/O: Intake & Output 11/11/19 11/12/19 11/12/19 23:59 07:59 15:59 Intake Total 620 360 Balance 620 360 Laboratory Tests 11/10/19 06:54 11/10/19 06:54 Post-procedural complaints: none Patient Feedback: Patient satisfied with anesthetic care.
[2019-11-12] MEDS: PANTOPRAZOLE SODIUM IV 40 MG VIAL IV PUSH (09:39)
[2019-11-12] MEDS: HYOSCYAMINE SULFATE 0.125 MG TABLET SUBLINGUAL (09:39)
[2019-11-12] MEDS: LIPASE/AMYLASE/PROTEASE 12,000 UNITS CAP 1 CAP PO ×2 (09:39→12:23)
--- NOTE | 2019-11-12 12:41 | WPDGIPROGNO ---
Progress Note: A&P Additional Plan Patient alert and oriented this morning. Very emotional. Anxiety evident. She states the pain is still present. Poorly localized but predominantly upper abdomen. She is eating diet with no aggravation of her pain. Bowel habits remain unremarkable. Physical exam reveals HEENT exam to be unremarkable. Lungs are clear. Heart without murmur. Abdomen is soft with poorly localized pain. No organomegaly evident. Labs are unremarkable. EGD yesterday was unremarkable per CT scan reveals pancreatic calcifications suggesting chronic pancreatitis. Impression 1. Abdominal pain. The etiology is unclear. Chronic pancreatitis does not necessarily cause pain although it may typically in alcoholic pancreatitis. Often it will cause diarrhea which patient no longer has. Plan is to treat empirically with Creon pancreatic enzymes this may help pain if indeed this is the etiology. We have also decided to keep patient on proton pump inhibitor therapy. Hopefully covering the possibility of dyspepsia and acid reflux. Consider anxiety and her emotional state contributing to her discomfort. Anxiolytics therapy may need to be considered. I will defer this to the primary care service. Subjective Date/time seen: 11/12/19 12:42 Objective Data Vital Signs Vital Signs: Vital Signs - 24 hr 11/11/19 16:00 11/11/19 20:00 11/11/19 22:00 Temperature 98.1 F 99.4 F Pulse Rate 79 98 76 Respiratory Rate 18 18 Blood Pressure 147/80 H 115/77 Pulse Oximetry 96 91 11/12/19 00:00 11/12/19 04:00 11/12/19 06:00 Temperature 98.5 F Pulse Rate 62 66 61 Respiratory Rate 18 Blood Pressure 144/89 H Pulse Oximetry 93 11/12/19 10:00 Temperature 98.3 F Pulse Rate 87 Respiratory Rate 18 Blood Pressure 121/82 Pulse Oximetry 97 Intake/Output Intake/Output: Intake & Output 11/09/19 11/10/19 11/11/19 11/12/19 23:59 23:59 23:59 23:59 Intake Total 2950 4250 1860 680 Output Total 3900 1100 950 Balance -950 3150 910 680 Meds/Results Medications: Active Medications Generic Name Dose Route Start Last Admin Trade Name Freq PRN Reason Stop Dose Admin Amitriptyline HCl 100 mg 11/09/19 21:00 11/11/19 20:05 Elavil PO 100 mg HS PETRONA Administration Lipase/Protease/Amylase 1 cap 11/11/19 12:00 11/12/19 12:[address] 12,000 Units Capsule PO 1 cap TIDWM PETRONA Administration Enoxaparin Sodium 40 mg 11/09/19 21:00 11/11/19 20:08 Lovenox SUB-Q 40 mg HS PETRONA Administration Hydromorphone HCl 1 mg 11/11/19 02:51 11/11/19 05:50 Dilaudid Inj IM 1 mg ONCE PRN Administration pain 7-10 Hyoscyamine 0.125 mg 11/11/19 15:37 11/12/19 09:39 Levsin Tablet SUBLINGUAL 0.125 mg Q4H PRN Administration Abdominal Cramping Ondansetron HCl 4 mg 11/08/19 18:00 11/10/19 14:13 Zofran Inj IV PUSH 4 mg Q4H PRN Administration Nausea Pantoprazole Sodium 40 mg 11/09/19 09:00 11/12/19 09:39 Protonix Iv IV PUSH 40 mg QAM PETRONA Administration Tramadol HCl 50 mg 11/10/19 18:13 11/12/19 12:22 Ultram PO 50 mg Q6H PRN Administration Pain Rated 4-6 Radiology Results: ITS Impressions Abdomen/Pelvis CT 11/08/19 15:21 IMPRESSION: Extensive aortic calcifications consistent with chronic pancreatitis Status post cholecystectomy Status post hysterectomy
--- NOTE | 2019-11-12 14:16 | PCDIET ---
Nutrition Screen Complete: Pt current nutrition is Regular 7. Nutrition recommendation: agree Last recorded weight is 55.8 kg. Bowel Motility: Labs Reviewed:8.8 monocytes, Na 135, AST 131, ALT 88, Alk Phos 131 Meds Noted:Creon, Protonix, Zofran, Tramadol Additional Notes: Seeing pt due to BMI of 18.2. Pt states wt has been steady. Creon added which I agree with. Pt s/p shaan. Pt will benefit from digestive enzymes to break down food. Pt declines needs for supplements. PO intake at 80-100% all meals. Edu provided on menu ordering and use of digestive enzymes. We will continue to monitor every seven days to assess for adequate intake.
--- NOTE | 2019-11-12 14:59 | PM.DS ---
DS: Admitting Diagnosis Admitting Diagnosis Admitting Diagnosis: Epigastric pain, intractable vomiting DS: Discharge Diagnosis Discharge Diagnosis (1) Abdominal pain: Qualifiers: Abdominal location: epigastric Qualified Code(s): R10.13 - Epigastric pain Code(s): R10.9 - Unspecified abdominal pain Status: Acute Assessment and Plan: Patient with chronic abdominal pain thought secondary to her chronic pancreatitis and possibly even component of IBS. She was treated with narcotics but these were stopped and discontinue narcotics and Levsin added. GI added pancreatic enzymes. She was started on oral intake and she is tolerating. She has scheduled GI appointment with media buyer in [place]. (2) Chronic pancreatitis: Qualifiers: Pancreatitis type: unspecified pancreatitis type Qualified Code(s): K86.1 - Other chronic pancreatitis Code(s): K86.1 - Other chronic pancreatitis Status: Acute Assessment and Plan: Lipase was normal. CT scan showing innumerable pancreatic calcifications consistent with chronic pancreatitis. She has seen GI in [place] and has had a negative ERCP in the past. Lipids normal. EGD normal on 11/11/19 and no history of ETOH abuse. Pancreatic enzyme started. LFTs are normal admission but mildly elevated repeat. Will order repeat values as outpatient. She did have positive HepC Ab here last year but no HepC viral load. Will defer to his GI doctor. (3) Acute dehydration: Code(s): E86.0 - Dehydration Status: Acute Assessment and Plan: Secondary to nausea and vomiting. Evidence by hemoconcentration with elevated hemoglobin on admission Better with IV fluids. Eating okay (80-100%). (4) Tobacco abuse: Code(s): Z72.0 - Tobacco use Status: Acute Assessment and Plan: patient smokes 1 pack per week. She was educated about the benefits of smoking cessation. DS: Summary Hospital Course Reason for hospitalization: 64yo female her for abdominal pain. Please see H&P for details. Hospital Course: As above Time Spent with Patient Time attestation: Total time spent providing and/or coordinating discharge services:32 minutes Time spent: Greater than 30 minutes Exam Narrative: Exam Narrative: AF 98.3 121/82 87 97% ra Gen - NARD Chest - few scattered expiratory rhonchi CV - RRR S1/S2; tele showing no signifincat dysrhythmias Abd - Soft, ND, epigastric pain, +BS Ext - No pedal edema Psych - Nml mood and affect Skin - Warm and dry Discharge Plan Discharge Attending physician on discharge: Trevor Caballero Consulting providers: Ravindra Marin Discharging Clinician: Trevor Caballero Anticipated Discharge Date/Time: 11/12/19 15:24 Patient Disposition: Home, Self-Care Activity: as tolerated Diet: low fat Discharge Instructions: Please avoid large gathering, wear face coverings in public and practice social distance. Take precautions to avoid falls. Rise slowly from a lying or sitting position. Pause before standing or walking. Contact your doctor or come to the Emergency Room if you are having worsening abdominal pain or other worrisome symptoms. Avoid NSAIDs (aspirin, ibuprofen, naproxen, Aleve). Tylenol is safe to take. Follow-up with your GI doctor in 1-2 weeks. Please call for appointment. Patient Instructions: How to Stop Smoking (DC), Pain Management (DC), Upper Endoscopy (DC), Smokeless Tobacco Keratosis (DC), Antibiotic Form Stand Alone Forms: General Discharge Information Follow-up/Referrals: Heriberto,Andrew Simms MD [Primary Care Provider] - Call for Appointment Discharge Medications: Edson Johnson 12,000-38,000 -60,000 unit Capsule,Delayed Release(Dr/Ec) 1 cap PO TIDWM Qty: 90 RF: 2 hyoscyamine sulfate [Anaspaz] 0.125 mg Tablet,Disintegrating 0.125 mg sublingual Q4H PRN (Reason: Abdominal Cramping) Qty: 30 RF: 0 omeprazol
== END 2019-11-12 16:10 | disposition home or self-care (01) | DRG 392 ==
LOC: ANHED 18:21 → ANH3MEDSUR 18:33
PROVIDERS: Internal Medicine Gastroenterology; Admitting Provider Internal Medicine; Emergency Provider Emergency Medicine; PCP Family Medicine; Visit Provider Internal Medicine
PROC: 0DJ08ZZ Inspection of Upper Intestinal Tract, Via Natural or Artificial Opening Endoscopic (ICD-10-PCS; CPT 43235; principal; 2019-11-11 10:00)
DX: R10.13 Epigastric pain (principal); K86.1 Other chronic pancreatitis; E86.0 Dehydration; K21.9 Gastro-esophageal reflux disease without esophagitis; F17.210 Nicotine dependence, cigarettes, uncomplicated; Z28.21 Immunization not carried out because of patient refusal; Z79.899 Other long term (current) drug therapy
CPT/HCPCS: 36415; 74177; 80053; 80061; 81001; 82306; 83036; 83690; 83735; 84100; 84443; 84484; 85025; 87081; 93005; 96361; 96365; 96375; 96376; 99285; A9270; C9113; G0378; J0131; J1170; J1650; J2310; J2405; J2704; J3475; J7030; J7120; Q9967

== ENCOUNTER 2019-11-28 13:04 | Emergency (ER) | payer MEDICARE, MEDICAID, SELFPAY ==
--- NOTE | ~2019-11-28 | CT_ITS ---
EXAMINATION: CT abdomen pelvis w con DATE: 11/28/2019 14:33 INDICATION: Abdominal pain. Nausea and vomiting. TECHNIQUE: Computed tomography (CT) of the abdomen and pelvis was performed with 100 mL Omnipaque 350 intravenous contrast. Automated exposure control and iterative reconstruction technique were employe d. The dose-length product was 309.10 mGy-cm. COMPARISON: CT abdomen and pelvis 11/08/2019 FINDINGS: The visualized portions of the lung bases demonstrate a 4 mm nodule in left lower lobe, lik olayinka benign. The heart size is normal. There are coronary artery calcifications. No pericardial effusi on. There is a small sliding hiatal hernia. Calcifications in the liver and spleen are consistent wit h old granulomatous disease. There are changes of cholecystectomy. The pancreatic duct is dilated to 8 mm, and there are numerous calcifications in the pancreas, consistent with chronic pancreatitis. Th ere is a 10 mm cyst in the pancreatic tail, consistent with a pseudocyst. The adrenal glands are norm al. There is cortical thinning of the kidneys. There are no dilated loops of bowel. The appendix is n ot well-visualized. There are no pathologically enlarged lymph nodes. There is no free intraperitonea l fluid. There are changes of posterior fusion procedure in thoracolumbar spine. There is severe lumb ar spondylosis. There is a chronic burst fracture of T12. There are chronic compression fractures of L1, L3, and L4. There is internal fixation of proximal right femur. IMPRESSION: 1. Small sliding hiatal hernia. 2. Chronic pancreatitis. Reviewed, dictated and finalized at location A.
[2019-11-28 13:04] VITALS: BP 140/98; PULSE 99; RESP 18; TEMP 36.9; O2SAT 99
[2019-11-28 13:52] LABS: Basophils Percent Auto 0.4 % (0.2-1.2); Eosinophils Absolute Auto 0.1 K/mm3 (0-0.3); Eosinophils Percent Auto 1.7 % (0-4.4); Hematocrit 49.9 % (37.0-47.0); Hemoglobin 16.9 g/dL (12.0-15.0); Immature Granulocyte Absolute 0.02 K/mm3 (0.00-0.031); Immature Granulocyte Percent A 0.3 % (0-0.5); Lymphocytes Absolute Auto 2.37 K/mm3 (0.9-3.2); Lymphocytes Percent Auto 31.9 % (18.3-44.2); Mean Corpuscular HGB Conc 33.9 g/dl (32-36); Mean Corpuscular Hemoglobin 32.1 pg (26-34); Mean Corpuscular Volume 94.9 fl (80-100); Mean Platelet Volume 8.9 fl (7.4-10.4); Monocytes Absolute Auto 0.5 K/mm3 (0.1-0.6); Neutrophils Absolute Auto 4.4 K/mm3 (1.3-6.7); Neutrophils Percent Auto 58.7 % (45.5-73.1); Platelet Count Result 280 k/mm3 (150-375); Red Blood Count 5.26 M/mm3 (4.2-5.4); Red Cell Distribution Width 13.4 % (11.5-14.5); White Blood Count 7.4 K/mm3 (4.5-10.0)
[2019-11-28 13:55] LABS: Add Urine Microscopic? YES; Appearance Urine Cloudy (Clear); Bacteria Urine Trace /hpf; Bilirubin Urine Negative (Negative); Blood Urine Negative (Negative); Color Urine Yellow (Yellow); Glucose Urine UA Negative (Negative); Ketones Urine Negative (Negative); Leukocyte Esterase Ur 1+ LEU/UL (Negative); Mucus Urine Rare /lpf; Nitrate Urine Negative (Negative); Protein Urine 1+ mg/dL (Negative); RBC Urine 0-2 /hpf (0-2); Specific Grav Ur 1.015 (1.001-1.035); Squamous Epithelial Cell Urine Many /hpf (Few); Transitional Epi Cells Urine Rare /hpf (None Seen)
[2019-11-28 14:04] LABS: Alanine Aminotransferase 11 U/L (4-35); Albumin Level 5.1 g/dL (3.5-5.1); Alkaline Phosphatase 109 U/L (38-126); Anion Gap 12 mmol/L (8-16); Aspartate Amino Transferase 20 U/L (14-36); Bilirubin,Total 0.8 mg/dL (0.2-1.3); Blood Urea Nitrogen 20 mg/dL (7-17); Calcium 10.3 mg/dL (8.4-10.2); Carbon Dioxide 31 mmol/L (22-30); Chloride 95 mmol/L (98-107); Estimated Glomerular Filt Rate > 60; Glucose 108 mg/dL (65-105); Lipase 109 U/L (23-300); Potassium 3.6 mmol/L (3.4-5.0); Sodium 138 mmol/L (137-145)
--- NOTE | 2019-11-28 14:21 | ED.GENADULT ---
HPI - General Adult General Chief complaint: Nausea/Vomiting/Diarrhea Stated complaint: N/V/ABD PAIN Time Seen by Provider: 11/28/19 13:12 Source: RN notes reviewed History of Present Illness HPI narrative: Patient presents emergency department from home for abdominal pain. Patient states symptoms began 4 days ago. Pain is located in the upper abdomen and associated with nausea and vomiting. Patient states she has a previous history of pancreatitis and this feels similar to prior. She states she is last admitted for pancreatitis [address] [facility]. She denies any fevers or chills chest pain shortness of breath diarrhea or any other symptoms. Related Data Allergies Allergy/AdvReac Type Severity Reaction Status Date / Time aspirin Allergy Unknown Unknown Verified 11/28/19 13:12 codeine Allergy Unknown Rash Verified 11/28/19 13:12 Penicillins Allergy Unknown Unknown Verified 11/28/19 13:12 Sulfa (Sulfonamide Allergy Unknown Unknown Verified 11/28/19 13:12 Antibiotics) acetaminophen [From Tylenol] Allergy Hives Verified 11/28/19 13:12 Review of Systems Review of Systems: Narrative: Gen.: Denies fevers or chills ENT: Denies congestion Respiratory: Denies shortness of breath or cough CV: Denies chest pain or palpitations GI: See HPI Musculoskeletal: Denies back pain or muscle pain Neuro: Denies numbness, tingling, weakness or focal weakness Skin: Denies rash Except as documented, all other systems reviewed and negative [facility] Past Medical History Medical History GERD (gastroesophageal reflux disease) Pancreatitis Seizure after head injury Social History Social History Years smoked: 30 Smoking status: Current every day smoker Tobacco type: cigarettes Second hand tobacco smoke exposure: Yes Alcohol intake: never Substance use: never Substance use type: marijuana Other substance usage details: a few weeks ago when she was nauseous she tried her son's. Gender identity (if verbalized by the patient): Female Spiritual care concerns: No Agree to blood products: Yes Exam Narrative: Exam Narrative: APPEARANCE: No acute distress, nontoxic, resting in bed HEENT: Normocephalic, atraumatic, OMM RESPIRATORY: No respiratory distress, clear to auscultation bilaterally with no rhonchi wheezing or rales CARDIOVASCULAR: RRR s murmur ABDOMINAL: Soft, nondistended, tender palpation epigastric, right upper quadrant left upper quadrant, no rebound or guarding MUSCULOSKELETAl: Moves all extremities. No clubbing, cyanosis or edema. NEURO: Awake and alert. Following commands, speech normal, no focal deficits SKIN:: Warm, dry. Normal Color PSYCHIATRIC: Normal affect/mood Course Course Emergency Course: Reviewed old records. Patient with frequent visits for chronic abdominal pain Patient states the only thing that normally helps with her pain is Dilaudid Patient states that they are feeling much better at this time. States abdominal pain has improved repeat abdominal exam shows the patient's abdomen to be soft with no surgical abdomen present discussed with patient results of workup and diagnosis. Discussed need for follow-up with primary care physician, reasons to return to the emergency department in proper use of medication. Patient understands and agrees to current treatment plan Vital Signs Vital signs: Vital Signs Temperature 98.5 F 11/28/19 13:04 Pulse Rate 99 11/28/19 13:04 Respiratory Rate 18 11/28/19 13:04 Blood Pressure 140/98 H 11/28/19 13:04 Pulse Oximetry 99 11/28/19 13:04 Temperature 98.5 F 11/28/19 13:04 Pulse Rate 88 11/28/19 15:00 Respiratory Rate 18 11/28/19 15:00 Blood Pressure 102/79 11/28/19 15:00 Pulse Oximetry 99 11/28/19 15:00 Medical Decision Making MDM Narrative Medical decision making narrative: Patient's abdomen is soft with
[2019-11-28] MEDS: SODIUM CHLORIDE 0.9% IV 1,000 ML 999 ML IV CONT (14:43)
[2019-11-28] MEDS: DICYCLOMINE HCL INJ 20 MG/2 ML VIAL IM (14:43)
[2019-11-28] MEDS: ONDANSETRON INJ 4 MG/2 ML VIAL IV PUSH (14:43)
[2019-11-28 15:00] VITALS: BP 102/79; PULSE 88; RESP 18; O2SAT 99
[2019-11-28] MEDS: HYDROmorphone HCL INJ (*CRX) 1 MG/ML SYR 0.5 MG IV PUSH (15:19)
[2019-11-28] MEDS: NITROFURANTOIN MONOHYD MACROCR 100 MG CAP PO (15:19)
--- NOTE | 2019-11-28 15:33 | PC.NURSE ---
Patient's insurance called for non-emergent transfer home. patient states that this is how she gets home each time she comes here.
[2019-11-28 16:25] VITALS: BP 113/79; PULSE 80; RESP 17; O2SAT 95
[2019-11-28 17:07] VITALS: BP 116/85; PULSE 91; RESP 18; O2SAT 100
== END 2019-11-28 18:40 | disposition home or self-care (01) ==
PROVIDERS: Emergency Provider Emergency Medicine; PCP Family Medicine
DX: K21.9 Gastro-esophageal reflux disease without esophagitis (principal); F17.210 Nicotine dependence, cigarettes, uncomplicated
CPT/HCPCS: 36415; 74177; 80053; 81001; 83690; 85025; 87077; 87086; 87088; 87186; 96361; 96372; 96374; 96375; 99284; A9270; J0500; J1170; J2405; J7030; Q9967

== ENCOUNTER 2020-02-22 08:49 | Observation (INO) | payer MEDICARE, MEDICAID, SELFPAY ==
[2020-02-22 09:06] VITALS: BP 121/84; PULSE 100; RESP 14; TEMP 36.4; O2SAT 100
--- NOTE | 2020-02-22 09:11 | ED.ABDPAIN ---
HPI - Abdominal Pain General Chief Complaint: Abdominal Pain Stated Complaint: ambulance Time Seen by Provider: 02/22/20 09:12 Source: patient Mode of arrival: EMS Limitations: no limitations History of Present Illness HPI narrative: 64-year-old woman with a history of chronic pancreatitis comes in today complaining of severe epigastric pain that started yesterday during dinner time. Patient states that she has had vomiting since and has been unable to keep anything down. She denies fever, diarrhea and hematemesis. Patient states she last took her oral pancreatic enzymes several days ago. MD elicited complaint: abdominal pain Pertinent past history: other ( Pancreatitis) Onset (ago): day(s) (1) Pain Consistency: constant Location: epigastric Severity: severe Quality: sharp Radiation: none Migration to: no migration Exacerbating factors: nothing Relieving factors: nothing Context: confirms history of similar episodes Associated symptoms: nausea and vomiting Related Data Allergies Allergy/AdvReac Type Severity Reaction Status Date / Time aspirin Allergy Unknown Unknown Verified 11/28/19 13:12 codeine Allergy Unknown Rash Verified 11/28/19 13:12 Penicillins Allergy Unknown Unknown Verified 11/28/19 13:12 Sulfa (Sulfonamide Allergy Unknown Unknown Verified 11/28/19 13:12 Antibiotics) acetaminophen [From Tylenol] Allergy Hives Verified 11/28/19 13:12 Review of Systems Constitutional: Constitutional: Denies chills and Denies fever(s) ENT: Denies dysphagia, Denies nasal congestion and Denies sore throat Cardiovascular: Cardiovascular: Denies chest pain and Denies radiating jaw, neck or arm pain Respiratory: Respiratory: Denies cough, Denies dyspnea and Denies wheezing Gastrointestinal: Gastrointestinal: Reports as per HPI, Reports abdominal pain, Reports nausea and Reports vomiting Genitourinary: Genitourinary: Denies nocturia and Denies dysuria Musculoskeletal: Musculoskeletal: Denies arthralgias and Denies joint swelling Integumentary/Breasts: Skin/Breast: Denies pruritus, Denies erythema and Denies rash Neurologic: Denies vertigo, Denies dizziness and Denies syncope Endocrine: Endocrine: Denies polydipsia and Denies polyuria Hematologic/Lymphatic: Hematologic/Lymphatic: Denies easy bleeding and Denies easy bruising Allergic/Immunologic: Allergic/Immunologic: Denies lip swelling and Denies tongue swelling PMF Past Medical History Medical History (Updated 02/22/20 @ 10:43 by Bon Mckenna MD) GERD (gastroesophageal reflux disease) Pancreatitis Seizure after head injury Surgical History Surgical History H/O shoulder surgery right History of ankle surgery right History of hip surgery right Hx of cholecystectomy Previous back surgery Family History Family History Father , age 67 Cancer Mother , age 70 Malignant melanoma Other Testicular cancer Social History Social History Years smoked: 30 Smoking status: Current every day smoker Tobacco type: cigarettes Second hand tobacco smoke exposure: Yes Alcohol intake: never Substance use: never Substance use type: marijuana Other substance usage details: a few weeks ago when she was nauseous she tried her son's. Gender identity (if verbalized by the patient): Female Spiritual care concerns: No Agree to blood products: Yes Exam Const: General: alert and ill appearing (mildly) acutely Orientation/consciousness: patient oriented x3 Other: Moderate to severe acute distress. Tearful. HENMT: Head: normal to inspection Ears: TM's normal bilaterally and EAC's normal General nose exam: Normal nares present Face and sinus: normal facial exam Mouth: Yes dry mucous membranes Throat: posterior oropharynx normal Eye
[2020-02-22] MEDS: PANTOPRAZOLE SODIUM IV 40 MG VIAL IV PUSH ×2 (09:20→20:17)
[2020-02-22] MEDS: HYDROmorphone HCL INJ (*CRX) 2 MG/ML VIAL 0.5 MG IV PUSH ×5 (09:24→22:02)
[2020-02-22] MEDS: ONDANSETRON INJ 4 MG/2 ML VIAL IV PUSH (09:24)
[2020-02-22] MEDS: SODIUM CHLORIDE 0.9% IV 1,000 ML 999 ML IV CONT ×2 (09:25→10:30)
[2020-02-22 09:31] LABS: Basophils Absolute Auto 0.01 K/mm3 (0.00-0.10); Basophils Percent Auto 0.2 % (0.0-1.0); Eosinophils Absolute Auto 0.02 K/mm3 (0.02-0.50); Eosinophils Percent Auto 0.3 % (1.0-6.0); Hematocrit 43.4 % (35.0-49.0); Hemoglobin 14.6 g/dL (12.0-15.0); Immature Granulocyte Absolute 0.02 K/mm3 (0.00-0.00); Immature Granulocyte Percent A 0.3 % (0.0-0.0); Lymphocytes Absolute Auto 0.85 K/mm3 (1.10-4.50); Lymphocytes Percent Auto 14.1 % (18.0-42.0); Mean Corpuscular HGB Conc 33.6 g/dL (32.0-36.0); Mean Corpuscular Hemoglobin 31.7 pg (27.0-31.0); Mean Corpuscular Volume 94.3 fL (78.0-102.0); Mean Platelet Volume 9.3 fl (9.2-11.8); Neutrophils Absolute Auto 4.8 K/mm3 (1.7-7.2); Neutrophils Percent Auto 80.1 % (50.0-70.0); Platelet Count Result 232 K/mm3 (150-420); Red Cell Distribution Width 13.1 % (11.6-14.4)
[2020-02-22 09:46] LABS: Alanine Aminotransferase 13 U/L (14-59); Albumin Level 3.8 g/dL (3.4-5.0); Alkaline Phosphatase 104 U/L (46-116); Anion Gap 7 mmol/L (8-16); Aspartate Amino Transferase 11 U/L (15-37); Bilirubin,Total 0.3 mg/dL (0.00-1.00); Blood Urea Nitrogen 31 mg/dL (7-18); Calcium 9.7 mg/dL (8.5-10.1); Carbon Dioxide 34 mmol/L (21-32); Chloride 95 mmol/L (98-108); Estimated CRCL calculation 38 ml/min; Estimated Glomerular Filt Rate 50; Glucose 116 mg/dL (70-99); INR 0.9; Lipase 71 U/L (73-393); Osmolality Calculated 289 mOsm/kg (285-295); Partial Thromboplastin Time 28.5 SEC (23.90-30.70); Potassium 3.7 mmol/L (3.5-5.1); Prothrombin Time 10.3 Seconds (9.50-12.10); Sodium 136 mmol/L (136-145); Total Protein 8.1 g/dL (6.4-8.2)
[2020-02-22 10:13] LABS: Add Urine Microscopic? YES; Appearance Urine Clear (Clear); Bilirubin Urine Negative (Negative); Blood Urine 2+ (Negative); Color Urine Yellow (Yellow); Glucose Urine UA Negative (Negative); Ketones Urine Negative (Negative); Leukocyte Esterase Ur 1+ LEU/UL (Negative); Nitrate Urine Negative (Negative); Protein Urine Negative (Negative); Specific Grav Ur 1.015 (1.010-1.020); Urobilinogen Urine 0.2 mg/dL (0.2-1.0)
[2020-02-22 10:17] LABS: Bacteria Urine Trace /hpf; Squamous Epithelial Cell Urine Few /hpf (Few)
[2020-02-22] MEDS: CIPROFLOXACIN 500 MG TAB PO ×2 (10:25→20:16)
--- NOTE | 2020-02-22 10:44 | PC.NURSE ---
ERp spoke c pt. Orders to admit for 23 hr. obs. received.
[2020-02-22 10:48] VITALS: BP 122/92; PULSE 78; RESP 20; O2SAT 100
[2020-02-22] MEDS: METOCLOPRAMIDE HCL INJ 10 MG/2 ML VIAL IV PUSH (10:50)
[2020-02-22] MEDS: SODIUM CHLORIDE 0.9% IV 1,000 ML 200 ML IV CONT ×3 (11:00→22:27)
[2020-02-22 11:15] VITALS: BP 124/82; PULSE 80; RESP 20; TEMP 37.3; O2SAT 96
[2020-02-22 11:22] VITALS: BMI 17.4
--- NOTE | 2020-02-22 13:02 | PM.IMHP ---
H&P: HPI History of Present Illness Date/Time: 02/22/20 13:02 Chief Complaint: Abdominal Pain Narrative: Heather Carpio is a 64 year old female Who comes in today with complaints of epigastric pain that started yesterday. Patient states she does not know what started her pancreatitis and claims that she is not much of a alcohol drinker at all. She says she has an appointment with her abdominal doctor later this week. Patient states the pain is 8/10 earlier today and she recently received some pain medication and states this only improved her pain to a 7/10. Patient says that she has been out of her Creon for few days and she will be talking to her GI specialist about this later this week. Review of Systems Constitutional: Constitutional: Reports no additional constitutional complaints Cardiovascular: Cardiovascular: Reports no additional cardiovascular complaints, Denies chest pain, Denies chest pain at rest and Denies chest pain with activity Respiratory: Respiratory: Reports no additional respiratory complaints, Denies chest congestion, Denies cough and Denies dyspnea Gastrointestinal: Gastrointestinal: Reports other (Epigastric pain per HPI) Genitourinary: Genitourinary: Reports other (admits to some burning during urination) [facility] Past Medical History Medical History (Updated 02/22/20 @ 13:06 by SHIMA Castle) GERD (gastroesophageal reflux disease) Pancreatitis Seizure after head injury Surgical History Surgical History H/O shoulder surgery right History of ankle surgery right History of hip surgery right Hx of cholecystectomy Previous back surgery Family History Family History Father , age 67 Cancer Mother , age 70 Malignant melanoma Other Testicular cancer Social History Social History Years smoked: 30 Smoking status: Current every day smoker Tobacco type: cigarettes Second hand tobacco smoke exposure: Yes Alcohol intake: never Substance use: never Substance use type: marijuana Other substance usage details: a few weeks ago when she was nauseous she tried her son's. Gender identity (if verbalized by the patient): Female Spiritual care concerns: No Agree to blood products: Yes Meds Home Medications and Allergies Home Medications Medication Instructions Recorded Confirmed Type amitriptyline 100 mg PO HS 30 Days #30 tablet 06/26/19 02/22/20 Rx Allergies Allergy/AdvReac Type Severity Reaction Status Date / Time aspirin Allergy Unknown Unknown Verified 11/28/19 13:12 codeine Allergy Unknown Rash Verified 11/28/19 13:12 Penicillins Allergy Unknown Unknown Verified 11/28/19 13:12 Sulfa (Sulfonamide Allergy Unknown Unknown Verified 11/28/19 13:12 Antibiotics) acetaminophen [From Tylenol] Allergy Hives Verified 11/28/19 13:12 Vital Signs Vital Signs - 24 hr 02/22/20 09:06 02/22/20 10:48 Temperature 97.6 F Pulse Rate 100 78 Respiratory Rate 14 20 Blood Pressure 121/84 122/92 H Pulse Oximetry 100 100 Exam Const: General: cooperative, comfortable (patient laying in bed watching TV), no acute distress, alert, awake and Physically active Nutritional Appearance: thin Resp: Effort & Inspection: normal respiratory effort Auscultation: rhonchi (bilateral bases not clearing with cough) Cardio: Rate: regular rate Rhythm: regular rhythm Heart sounds: S1 normal heart sound present and S2 normal heart sound present GI: GI Palp: Yes Soft to palpation and Yes Tenderness to palpation present (GI) (epigastric area) Auscultation: normal bowel sounds Extrem: General: no pedal edema H&P: Results Labs Labs: Short CBC 02/22/20 Range/Units 09:24 WBC 6.0 (4.8-10.8) K/mm3 Hgb 14.6 (12.0-15.0) g/dL Hct 43.4 (35.0-49.0) %
[2020-02-22 14:00] VITALS: BP 118/80; PULSE 76; RESP 20; TEMP 36.9; O2SAT 96
[2020-02-22 16:00] VITALS: BP 110/81; PULSE 74; RESP 18; TEMP 37.1; O2SAT 96
[2020-02-22] MEDS: SACCHAROMYCES BOULARDII 250 MG CAPSULE PO (18:11)
--- NOTE | 2020-02-22 19:43 | PC.NURSE ---
Patient requesting crackers. has tolerated lunch and supper of clear liquids without nausea or vomiting. Doctor notified and okayed crackers.
[2020-02-22] MEDS: AMITRIPTYLINE HCL 25 MG TABLET 100 MG PO (20:16)
[2020-02-23] VITALS: BP 114/82; PULSE 72; RESP 18; TEMP 36.3; O2SAT 90
[2020-02-23] MEDS: HYDROmorphone HCL INJ (*CRX) 2 MG/ML VIAL 0.5 MG IV PUSH ×5 (01:25→13:46)
[2020-02-23] MEDS: ONDANSETRON INJ 4 MG/2 ML VIAL IV PUSH ×2 (01:31→09:42)
[2020-02-23] MEDS: SODIUM CHLORIDE 0.9% IV 1,000 ML 200 ML IV CONT ×2 (03:33→08:42)
[2020-02-23 08:00] VITALS: BP 136/88; PULSE 68; RESP 20; TEMP 37.1; O2SAT 93
[2020-02-23] MEDS: CIPROFLOXACIN 500 MG TAB PO (08:58)
[2020-02-23] MEDS: PANTOPRAZOLE SODIUM IV 40 MG VIAL IV PUSH (08:58)
[2020-02-23] MEDS: SACCHAROMYCES BOULARDII 250 MG CAPSULE PO (08:58)
[2020-02-23] MEDS: ENOXAPARIN 40 MG/0.4 ML SYRINGE SUB-Q (08:59)
[2020-02-23] MEDS: LORazepam (*CRX) 1 MG TABLET 2 MG PO (09:38)
--- NOTE | 2020-02-23 11:28 | PM.DS ---
DS: Admitting Diagnosis Admitting Diagnosis Admitting Diagnosis: Chronic Pancreatitis, UTI, GERD, Dehydration DS: Discharge Diagnosis Discharge Diagnosis (1) Acute dehydration: Code(s): E86.0 - Dehydration Status: Acute Assessment and Plan: 02/22/2020 patient was given 2 L in bolus while in the ER, currently NS at 200/h, patient is wanting to try oral fluids and if patient is able to tolerate fluids will reduce normal saline or discontinue altogether 02/23/2020 Pt is able to take PO fluids well with minimal abdominal discomfort (2) Chronic pancreatitis: Qualifiers: Pancreatitis type: unspecified pancreatitis type Qualified Code(s): K86.1 - Other chronic pancreatitis Code(s): K86.1 - Other chronic pancreatitis Status: Acute Assessment and Plan: 02/22/2020 as noted in HPI patient had a pain of 8/10 and after getting her pain medication a drop to 7/10 02/23/2020 Pt still has some abdominal pain but is able to tolerate fluids and crackers (3) GERD (gastroesophageal reflux disease): Code(s): K21.9 - Gastro-esophageal reflux disease without esophagitis Status: Acute Assessment and Plan: 02/22/2020 will give patient Protonix (4) UTI (urinary tract infection): Code(s): N39.0 - Urinary tract infection, site not specified Status: Acute Assessment and Plan: 02/22/2020 urine culture pending, Cipro 02/23/2020 will DC home with Cipro to finish course (5) Anxiety: Code(s): F41.9 - Anxiety disorder, unspecified Status: Acute DS: Summary Hospital Course Hospital Course: Pt has improved, tolerating PO fluids, crackers with minimal abdominal discomfort. Time Spent with Patient Time attestation: Total time spent providing and/or coordinating discharge services: < 30 min Exam Const: General: cooperative, no acute distress, alert, awake and Physically active Resp: Effort & Inspection: normal respiratory effort Auscultation: clear to auscultation bilaterally Cardio: Rate: regular rate Rhythm: regular rhythm Heart sounds: S1 normal heart sound present and S2 normal heart sound present GI: GI Palp: Yes Soft to palpation and Yes Tenderness to palpation present (GI) (minimal epigastric tenderness. ) Extrem: General: no pedal edema Discharge Plan Discharge Attending physician on discharge: Ravindra Berg Discharging Clinician: Florencio Lovett Anticipated Discharge Date/Time: 02/23/20 14:30 Patient Disposition: Home, Self-Care Activity: as tolerated Diet: other - see discharge instructions Discharge Instructions: Clear liquids and advance diet as tolerated, you will have Cipro for your urinary tract infection, medications have been prescribed for your pain Patient Instructions: Antibiotic Form Stand Alone Forms: General Discharge Information Follow-up/Referrals: UNKNOWN,DOCTOR [Primary Care Provider] - 1 week Discharge Medications: New ciprofloxacin HCl 500 mg Tablet 500 mg PO Q12HR Qty: 10 RF: 0 Saccharomyces boulardii [Florastor] 250 mg Capsule 250 mg PO BID Qty: 14 RF: 0 pantoprazole [Protonix] 40 mg tablet,delayed release (DR/EC) 40 mg PO HS Qty: 30 RF: 0 lorazepam [Ativan] 0.5 mg tablet 0.5 mg PO BID PRN (Reason: Anxiety Pain) Qty: 10 RF: 0 Continued amitriptyline 100 mg tablet 100 mg PO HS 30 Days Qty: 30 RF: 0 Date of admission: 02/22/20 10:47 Primary Care Provider: UNKNOWN,DOCTOR Admitting Provider: Bon Mckenna Attending physician on admission: Bon Mckenna Condition: Improved Quality VTE Prophylaxis VTE prophylaxis: pharmacologic ordered (Lovenox)
--- NOTE | 2020-03-05 11:25 | PC.NURSE ---
Pt states she received and understood her discharge instructions. Has no other comments.
== END 2020-02-23 15:10 | disposition home or self-care (01) ==
LOC: CHSED 10:35 → CHS2ND 10:58
PROVIDERS: Admitting Provider Emergency Medicine; Emergency Provider Emergency Medicine; Visit Provider Emergency Medicine
DX: K85.90 Acute pancreatitis without necrosis or infection, unspecified (principal); E86.0 Dehydration; K86.1 Other chronic pancreatitis; K21.9 Gastro-esophageal reflux disease without esophagitis; F17.210 Nicotine dependence, cigarettes, uncomplicated; Z90.49 Acquired absence of other specified parts of digestive tract; N39.0 Urinary tract infection, site not specified; F41.9 Anxiety disorder, unspecified
CPT/HCPCS: 36415; 80053; 81001; 83605; 83690; 85025; 85610; 85730; 87086; 96361; 96372; 96374; 96375; 96376; 99285; A9270; C9113; G0378; J1170; J1650; J2405; J2765; J7030

== ENCOUNTER 2020-02-26 10:24 | Emergency (ER) | payer MEDICARE, MEDICAID, SELFPAY ==
--- NOTE | ~2020-02-26 | CT_ITS ---
EXAMINATION: CT thoracic lumbar wo con EXAM DATE: 02/26/2020 14:23 INDICATION: trauma fall today causing back pain and post pelvis pain. Initial encounter. TECHNIQUE: Spiral CT thoracolumbar spine was performed without contrast. Axial, coronal and sagittal images of the thoracic spine were reviewed. Axial, coronal and sagittal images of the lumbar spine we re reviewed. The dose-length product (DLP) for this examination was 302.77 mGy-cm. The exposure was tailored according to patient size (auto mA exposure control), and iterative reconstruction (ASIR) wa s used as additional dose reduction technique. Correlation is made to CT chest abdomen pelvis 019 FINDINGS: THORACIC SPINE: There is chronic T12 burst fracture with moderate to severe loss of this height centr ally, mild retropulsion, unchanged compared to 2019. Posterior fusion with intact hardware T10-L2. T1 2 laminectomies. Mild chronic compression fracture of L4 superior endplate unchanged. There are no ac [place] fractures identified. The vertebral bodies are aligned in the AP dimension. No evidence of signif icant central canal or neural foraminal stenosis. Paraspinal soft tissue is unremarkable. Trace right pleural effusion. Pancreatic calcifications, chronic pancreatitis. LUMBAR SPINE: Acute nondisplaced right sacral ala fracture. There is no evidence of acute lumbar fra cture. There is no disc space widening or traumatic vertebral body subluxation suspected. Paraspina l soft tissue is unremarkable. Mild to moderate chronic compression fractures of L3 and L4, mild at L1 and L5. There is moderate disc disease L1-L5 and overall mild to moderate lumbar neural foraminal stenosis. There is moderate lower lumbar spondylosis. No more than mild to moderate central canal davin nosis. A detailed level by level evaluation of spondylosis can be added as addendum if requested. IMPRESSION: 1. Acute nondisplaced right sacral ala fracture. 2. Chronic T12 burst fracture, thoracolumbar surgical changes. 3. Spondylosis. Reviewed, dictated and finalized at location B. [facility]
--- NOTE | ~2020-02-26 | CT_ITS ---
EXAMINATION: CT cervical spine wo con DATE: 02/26/2020 11:28 INDICATION: Fall today. Posterior head pain, neck pain TECHNIQUE: Computed tomography (CT) of the cervical spine was performed without intravenous contrast. Automated exposure control and iterative reconstruction technique were employed. Exam dose: 128.86 mGy-cm total exam DLP. COMPARISON: None FINDINGS: C1 and C2 are normally aligned and the odontoid process is intact. There is moderate anterior wedge likely chronic compression fracture deformity of C7; otherwise no fr acture or dislocation or locked facet or prevertebral soft tissue swelling. There is mild retrolisthesis at C3-4. There is mild retrolisthesis and moderately severe degenerative disc disease at C4-5. There is moderately severe degenerative disc disease at C5-6. There is moderate degenerative disease at C6-7. IMPRESSION: Moderate anterior wedge compression fracture deformity of C7, likely chronic; otherwise no fracture or dislocation Multilevel degenerative disc Reviewed, dictated and finalized at [facility]. Reviewed, dictated and finalized at location A. MOWER SHARPENER IMPRESSION: Moderate anterior wedge compression fracture deformity of C7, like ly chronic; otherwise no fracture or dislocation Multilevel degenerative disc
--- NOTE | ~2020-02-26 | CT_ITS ---
EXAMINATION: CT brain wo con DATE: 02/26/2020 11:27 INDICATION: Fall today. Posterior head pain. TECHNIQUE: Computed tomography (CT) of the head was performed without intravenous contrast. The mA wa s adjusted according to patient size. Iterative reconstruction technique was employed. Exam dose: 60 5.33 mGy-cm total exam DLP. COMPARISON: None FINDINGS: Bilateral carotid siphon internal carotid artery calcifications. There is nonspecific patch y diminished attenuation of the subcortical and periventricular cerebral white matter, likely due to chronic small vessel ischemic change. No intracranial mass lesion or hemorrhage or cerebrovascular accident is evident. No midline shift or mass effect. Normal ventricular size. No subdural or epidural hematoma. No orbital mass lesion. Included paranasal sinuses and mastoid air cells are normally developed and aerated. No fracture or bone destruction of the cranial vault. IMPRESSION: Cerebral atherosclerosis and chronic small vessel ischemic changes of the cerebral white matter Reviewed, dictated and finalized at [facility]. Reviewed, dictated and finalized at location A. OR PRODUCTION SUPERVISOR
--- NOTE | ~2020-02-26 | CT_ITS ---
EXAMINATION: CT pelvis wo con DATE: 02/26/2020 14:23 INDICATION: Posterior pelvic pain post fall TECHNIQUE: High resolution computed tomography (CT) of the pelvis was performed without intravenous c ontrast. Additional sagittal and coronal reconstructions were performed. Automated exposure control a nd iterative reconstruction technique were employed. The dose-length product was 302.77 mGy-cm. COMPARISON: CT dated 11/28/2019 FINDINGS: Nondisplaced sagittally oriented fracture of the right sacral ala. There is an additional nondisplace d fracture extending an oblique axial plane across the left ischial tuberosity. No definitive disrupt ion of the left obturator ring or evident fracture of the left pubic body or superior pubic ramus. Ol d healed subtrochanteric fracture of the proximal right femur which is fixed with an antegrade intram edullary joshua and a pair of interlocking femoral neck screws. Chronic compression fracture of the righ t side of the superior endplate of L4. Severe lower lumbar spondylosis. Body wall, mesenteric and ret roperitoneal soft tissue edema. There is calcified atherosclerosis of the aorta and many of the other arteries. Calcified injection granulomata at the bilateral buttocks. IMPRESSION: 1. Nondisplaced fracture of the right sacral ala. 2. Nondisplaced fracture of the left ischial tuberosity which does not appear to compromise the left obturator ring. Reviewed, dictated and finalized at location A. ERTY MAN IMPRESSION: 1. Nondisplaced fracture of the right sacral ala. 2. Nondisplaced fracture of the left ischial tuberosity which does not appear t o compromise the left obturator ring.
[2020-02-26 10:30] VITALS: BP 142/85; PULSE 66; RESP 20; TEMP 36.4; O2SAT 97
[2020-02-26] MEDS: HYDROcodone/acetaminophen (*CRX) 5-325 MG TABLET 1 TAB PO (10:59)
[2020-02-26] MEDS: KETOROLAC (*BKC) 60 MG/2 ML VIAL IM (10:59)
--- NOTE | 2020-02-26 11:05 | ED.FALL ---
HPI - Fall General Chief Complaint: Fall Stated Complaint: Ambulance Time Seen by Provider: 02/26/20 10:25 Source: patient and family Mode of arrival: EMS Limitations: no limitations History of Present Illness HPI Narrative: Patient states she fell and has had neck pain and headache since fall about half an hour ago. Pain has been moderately severe and ongoing, this appears to be worse in cervical spine. Pain is moderately severe to severe and ongoing. Nothing seems to make this better or worse. complaint: fall Onset (ago): minute(s) Fall from: standing Fall witnessed: no Place fall occurred: home Loss of consciousness: none Prolonged down time: no Symptoms prior to fall: none Context: tripped/slipped Location of injury: head and neck (cervical pain, low) Severity: severe Severity scale (1-10): 8 Quality: sharp Associated symptoms (after fall): denies Related Data Allergies Allergy/AdvReac Type Severity Reaction Status Date / Time aspirin Allergy Unknown Unknown Verified 11/28/19 13:12 codeine Allergy Unknown Rash Verified 11/28/19 13:12 Penicillins Allergy Unknown Unknown Verified 11/28/19 13:12 Sulfa (Sulfonamide Allergy Unknown Unknown Verified 11/28/19 13:12 Antibiotics) acetaminophen [From Tylenol] Allergy Hives Verified 11/28/19 13:12 Review of Systems Constitutional: Constitutional: Reports no additional constitutional complaints Eyes: Eyes: Reports no additional eye complaints ENT: Reports system reviewed and no additional complaints, except as documented Cardiovascular: Cardiovascular: Reports no additional cardiovascular complaints Respiratory: Respiratory: Reports no additional respiratory complaints Gastrointestinal: Gastrointestinal: Reports no additional gastrointestinal complaints Genitourinary: Genitourinary: Reports no additional female genitourinary complaints Musculoskeletal: Comments: Complaints of low neck pain especialy with touch Integumentary/Breasts: Skin/Breast: Reports system reviewed and no additional complaints, except as docu Neurologic: Reports system reviewed and no additional complaints, except as documented Comments: Headache Psychiatric: Psychiatric: Reports no additional psychiatric complaints Endocrine: Endocrine: Reports no additional endocrine complaints Hematologic/Lymphatic: Hematologic/Lymphatic: Reports no additional hematologic/lymphatic complaints Allergic/Immunologic: Allergic/Immunologic: Reports no additional allergic/immunologic complaints PMFSH Past Medical History Medical History (Updated 02/26/20 @ 14:12 by Ravindra Berg MD) GERD (gastroesophageal reflux disease) Pancreatitis Seizure after head injury Surgical History Surgical History H/O shoulder surgery right History of ankle surgery right History of hip surgery right Hx of cholecystectomy Previous back surgery Family History Family History Father , age 67 Cancer Mother , age 70 Malignant melanoma Other Testicular cancer Social History Social History Smoking packs per day: 0.25 Smoking cigarettes per day: 5.0 Years smoked: 40 Smoking pack-years: 10.00 Smoking status: Current every day smoker Tobacco type: cigarettes Second hand tobacco smoke exposure: Yes Alcohol intake: never Substance use: never Substance use type: marijuana Other substance usage details: a few weeks ago when she was nauseous she tried her son's. Gender identity (if verbalized by the patient): Female Spiritual care concerns: No Agree to blood products: Yes Exam Narrative: Exam Narrative: Mrs. Carpio fell hitting her occiput, about 30 minutes ago. She complains of pain in her cervical spine a headache and pain in the thoracic and lumbar areas where she has rods. Pain is sever,
--- NOTE | 2020-02-26 11:21 | PC.NURSE ---
pt to xray per wheelchair with xray staff.
--- NOTE | 2020-02-26 11:48 | PC.NURSE ---
pt out of bottom of cot, ambulated to bathroom, slow and holding on to hand rail. continues to complain of headache. food provided as requested.
--- NOTE | 2020-02-26 12:40 | PC.NURSE ---
pt resting per cot, ate 100% meal provided. erp in to discuss plan of care.
[2020-02-26] MEDS: ONDANSETRON INJ 4 MG/2 ML VIAL IV PUSH ×2 (13:25→15:33)
[2020-02-26] MEDS: HYDROmorphone HCL INJ (*CRX) 2 MG/ML VIAL 0.5 MG IV PUSH ×2 (13:36→15:33)
[2020-02-26 13:45] VITALS: BP 111/91; PULSE 93; RESP 20; TEMP 37.1; O2SAT 98
[2020-02-26 13:48] LABS: SARS-CoV-2 Ag Negative (Negative)
--- NOTE | 2020-02-26 15:02 | PC.NURSE ---
report to chaka morales
--- NOTE | 2020-02-26 15:05 | PC.NURSE ---
[facility] called for transport at this time, awaiting arrival. Pt updated with plan of care. All questions and concerns answered, no further needs expressed.
--- NOTE | 2020-02-26 15:37 | PC.NURSE ---
Pt transferred via ambulance at this time, report provided, all questions answered, all documentation give to EMS. Pt in stable condition, NAD noted, respirations even and unlabored.
[2020-02-26 15:39] VITALS: BP 115/87; PULSE 89; RESP 18; O2SAT 99
== END 2020-02-26 15:42 | disposition short-term general hospital (02) ==
PROVIDERS: Emergency Provider Emergency Medicine
DX: S12.691A Other nondisplaced fracture of seventh cervical vertebra, initial encounter for closed fracture (principal); W19.XXXA Unspecified fall, initial encounter; K21.9 Gastro-esophageal reflux disease without esophagitis; F17.200 Nicotine dependence, unspecified, uncomplicated; Z20.828 Contact with and (suspected) exposure to other viral communicable diseases
CPT/HCPCS: 70450; 72125; 72128; 72131; 72192; 87426; 96372; 96374; 96375; 96376; 99283; 99284; A9270; J1170; J1885; J2405; L0150

== ENCOUNTER 2020-03-22 07:37 | Emergency (ER) | payer MEDICARE, MEDICAID, SELFPAY ==
--- NOTE | ~2020-03-22 | XR_ITS ---
EXAMINATION: XR chest 2V DATE: 03/22/2020 09:02 INDICATION: Bilateral rales, wheezing TECHNIQUE: PA and lateral views of the chest are obtained. COMPARISON: 06/24/2019 FINDINGS: The lungs are hyperinflated but free of acute opacities. There is no pleural effusion or pn eumothorax. The heart size is normal. Calcified left hilar and mediastinal lymph nodes are consistent with old granulomatous disease. There is a chronic burst fracture of T12 with changes of posterior t horacic fusion from T10 through L2. Chronic compression fractures of T11 and L1 are again noted. Surg ical clips in the right upper quadrant are likely from prior cholecystectomy. A healed left proximal humerus fracture is noted. IMPRESSION: 1. No acute cardiopulmonary abnormality. Reviewed, dictated and finalized at location A. MATIC FANCY MACHINE OPERATOR
[2020-03-22 07:40] VITALS: BP 131/99; PULSE 104; RESP 19; TEMP 37.2; O2SAT 99
--- NOTE | 2020-03-22 07:51 | ED.ABDPAIN ---
HPI - Abdominal Pain General Chief Complaint: Abdominal Pain Stated Complaint: Ambulance Time Seen by Provider: 03/22/20 07:51 Source: patient Mode of arrival: EMS Limitations: no limitations History of Present Illness HPI narrative: 64-year-old woman with a history of chronic pancreatitis comes in today complaining of a worsening of her pain over the last 3 or 4 days. Patient states that she has been vomiting and has been able to keep down any fluids for the last 3 days. She denies fever, cough cold symptoms, blood in her stools, black stools, blood in her vomitus, syncope or chest pain. patient states that she no longer takes oral pancreatic enzymes because she is getting ready to enroll in a study. MD elicited complaint: abdominal pain Pertinent past history: other ( Pancreatitis) Onset (ago): day(s) (3) Pain Consistency: constant Location: epigastric Severity: severe Quality: dull Radiation: none Migration to: no migration Exacerbating factors: nothing Relieving factors: nothing Associated symptoms: nausea, vomiting and diarrhea Related Data Allergies Allergy/AdvReac Type Severity Reaction Status Date / Time aspirin Allergy Unknown Unknown Verified 11/28/19 13:12 codeine Allergy Unknown Rash Verified 11/28/19 13:12 Penicillins Allergy Unknown Unknown Verified 11/28/19 13:12 Sulfa (Sulfonamide Allergy Unknown Unknown Verified 11/28/19 13:12 Antibiotics) acetaminophen [From Tylenol] Allergy Hives Verified 11/28/19 13:12 Review of Systems Constitutional: Constitutional: Denies chills, Denies fever(s) and Denies weakness ENT: Denies dysphagia, Denies nasal congestion and Denies sore throat Cardiovascular: Cardiovascular: Denies chest pain and Denies radiating jaw, neck or arm pain Respiratory: Respiratory: Denies cough and Denies dyspnea Gastrointestinal: Gastrointestinal: Reports abdominal pain, Reports diarrhea, Reports nausea and Reports vomiting Genitourinary: Genitourinary: Denies hematuria, Denies nocturia and Denies dysuria Musculoskeletal: Musculoskeletal: Denies arthralgias and Denies joint swelling Integumentary/Breasts: Skin/Breast: Denies pruritus, Denies erythema and Denies rash Neurologic: Denies vertigo, Denies dizziness and Denies syncope Hematologic/Lymphatic: Hematologic/Lymphatic: Denies easy bleeding and Denies easy bruising Allergic/Immunologic: Allergic/Immunologic: Denies lip swelling and Denies throat swelling PMFSH Past Medical History Medical History (Updated 03/22/20 @ 10:08 by Bon Mckenna MD) GERD (gastroesophageal reflux disease) Pancreatitis Seizure after head injury Surgical History Surgical History H/O shoulder surgery right History of ankle surgery right History of hip surgery right Hx of cholecystectomy Previous back surgery Family History Family History Father , age 67 Cancer Mother , age 70 Malignant melanoma Other Testicular cancer Social History Social History Smoking packs per day: 0.25 Smoking cigarettes per day: 5.0 Years smoked: 40 Smoking pack-years: 10.00 Smoking status: Current every day smoker Tobacco type: cigarettes Second hand tobacco smoke exposure: Yes Alcohol intake: never Substance use: never Substance use type: marijuana Other substance usage details: a few weeks ago when she was nauseous she tried her son's. Gender identity (if verbalized by the patient): Female Spiritual care concerns: No Agree to blood products: Yes Exam Const: General: healthy appearing, alert and ill appearing chronically Orientation/consciousness: patient oriented x3 Limitations: no limitations Other: Moderate acute distress. HENMT: Throat: posterior oropharynx normal and uvula midline Eyes: Conjunctivae: conj
[2020-03-22 08:03] LABS: Basophils Absolute Auto 0.02 K/mm3 (0.00-0.10); Basophils Percent Auto 0.2 % (0.0-1.0); Hematocrit 47.5 % (35.0-49.0); Hemoglobin 15.6 g/dL (12.0-15.0); Immature Granulocyte Absolute 0.02 K/mm3 (0.00-0.00); Immature Granulocyte Percent A 0.2 % (0.0-0.0); Lymphocytes Absolute Auto 1.55 K/mm3 (1.10-4.50); Lymphocytes Percent Auto 15.5 % (18.0-42.0); Mean Corpuscular HGB Conc 32.8 g/dL (32.0-36.0); Mean Corpuscular Hemoglobin 30.6 pg (27.0-31.0); Mean Corpuscular Volume 93.3 fL (78.0-102.0); Monocytes Absolute Auto 0.44 K/mm3 (0.10-0.90); Monocytes Percent Auto 4.4 % (2.0-11.0); Neutrophils Percent Auto 79.7 % (50.0-70.0); Platelet Count Result 266 K/mm3 (150-420); Red Blood Count 5.09 M/mm3 (4.20-5.40); Red Cell Distribution Width 13.5 % (11.6-14.4)
[2020-03-22] MEDS: PANTOPRAZOLE SODIUM IV 40 MG VIAL IV PUSH (08:14)
[2020-03-22] MEDS: SODIUM CHLORIDE 0.9% IV 1,000 ML 999 ML IV CONT (08:14)
[2020-03-22] MEDS: ONDANSETRON INJ 4 MG/2 ML VIAL IV PUSH (08:14)
[2020-03-22 08:16] LABS: Alanine Aminotransferase 13 U/L (14-59); Albumin Level 3.9 g/dL (3.4-5.0); Alkaline Phosphatase 150 U/L (46-116); Anion Gap 10 mmol/L (8-16); Aspartate Amino Transferase 12 U/L (15-37); Bilirubin,Total 0.5 mg/dL (0.00-1.00); Blood Urea Nitrogen 21 mg/dL (7-18); Calcium 9.7 mg/dL (8.5-10.1); Carbon Dioxide 31 mmol/L (21-32); Chloride 97 mmol/L (98-108); Estimated Glomerular Filt Rate 58; Glucose 115 mg/dL (70-99); Lipase 73 U/L (73-393); Osmolality Calculated 290 mOsm/kg (285-295); Potassium 3.5 mmol/L (3.5-5.1); Sodium 138 mmol/L (136-145); Total Protein 8.5 g/dL (6.4-8.2)
[2020-03-22 08:40] LABS: Appearance Urine Clear (Clear); Bilirubin Urine Negative (Negative); Color Urine Yellow (Yellow); Glucose Urine UA Negative (Negative); Ketones Urine Negative (Negative); Leukocyte Esterase Ur Negative LEU/UL (Negative); Nitrate Urine Negative (Negative); Protein Urine 2+ (Negative); Specific Grav Ur 1.025 (1.010-1.020); Urobilinogen Urine 0.2 mg/dL (0.2-1.0); pH Urine 5.5 (5.0-8.0)
[2020-03-22 08:42] LABS: Magnesium 1.4 mg/dL (1.8-2.4); Phosphorus 3.1 mg/dL (2.6-4.7)
[2020-03-22 08:49] LABS: Add Urine Microscopic? YES; Bacteria Urine Trace /hpf; Blood Urine Trace-Intact (Negative); RBC Urine 0-2 /hpf (0-2); Squamous Epithelial Cell Urine Rare /hpf (Few); WBC Urine 0-3 /hpf (0-3)
[2020-03-22 08:59] LABS: Amphetamine Screen Urine Negative (Negative); Barbiturate Screen Urine Negative (Negative); Benzodiazepines Screen Urine Negative (Negative); Cannabinoid Screen Urine Positive (Negative); Cocaine Screen Urine Negative (Negative); Methadone Screen Urine Negative (Negative); Opiate Screen Urine Negative (Negative); Phencyclidine Screen Urine Negative (Negative)
[2020-03-22 09:08] LABS: SARS-CoV-2 Ag Negative (Negative)
--- NOTE | 2020-03-22 09:36 | PC.NURSE ---
PT HOSPICE CLINICAL SUPERVISOR LIGHT MULTIPLE TIMES FOR PAIN MEDICATION. ERP AWARE
[2020-03-22 09:58] LABS: Lactic Acid Reflex 0.9 mmol/L (0.4-2.0)
[2020-03-22 10:28] VITALS: BP 134/91
== END 2020-03-22 10:29 | disposition home or self-care (01) ==
PROVIDERS: Emergency Provider Emergency Medicine
DX: K86.1 Other chronic pancreatitis (principal); K21.9 Gastro-esophageal reflux disease without esophagitis; F17.200 Nicotine dependence, unspecified, uncomplicated; Z79.899 Other long term (current) drug therapy; Z20.822 Contact with and (suspected) exposure to COVID-19
CPT/HCPCS: 36415; 71046; 80053; 80307; 81001; 83605; 83690; 83735; 84100; 85025; 87426; 96361; 96374; 96375; 99283; 99284; C9113; C9803; J2405; J7030

== ENCOUNTER 2020-04-15 08:57 | Inpatient (IN) | payer MEDICARE, MEDICAID, SELFPAY ==
[2020-04-15] VITALS (49 sets, daily range): BP systolic 95–201; BP diastolic 63–130; PULSE 73–123; RESP 8–27; TEMP 36.3–37.1; O2SAT 92–97; BMI 17.5
--- NOTE | ~2020-04-15 | CT_ITS ---
EXAMINATION: CT abdomen pelvis w con DATE: 04/15/2020 10:04 INDICATION: Epigastric abdominal pain TECHNIQUE: Computed tomography (CT) of the abdomen and pelvis was performed with 100 cc Omnipaque 350 intravenous contrast. Automated exposure control and iterative reconstruction technique were employe d. Exam dose: 269.60 mGy-cm total exam DLP. COMPARISON: 11/28/2019 CT abdomen pelvis FINDINGS: There is a 4 mm nodule right lower lobe (series 4 image 4). There is a calcified granuloma in the lingula. There is discoid atelectasis or more likely scarring in the medial aspect of the base of the left lower lobe. Emphysematous changes are noted. No infiltrate or consolidation at the included lung bases. Normal heart size. Coronary artery calcification. No pericardial or pleural effusion. Status post cholecystectomy. Calcified hepatic and splenic granulomas consistent with old granulomato us disease. No hepatic, splenic, or adrenal space-occupying mass lesion is evident. Small cortical cyst of the me dial aspect of lower pole of the right kidney. Very small fat containing density at the upper pole of left kidney, possibly a small angiomyolipoma. There is extensive calcification throughout the pancreas consistent with chronic pancreatitis. No stewart creatic mass lesion is evident. No bile duct or pancreatic duct dilatation is detected. There is calcification and tortuosity of the abdominal aorta but no aneurysm. No intraperitoneal or r etroperitoneal or pelvic mass lesion or adenopathy or ascites is evident. There is a small sliding hiatal hernia. There are some nondilated fluid distended ileal small bowel s egments. No bowel wall thickening, pneumatosis or intraperitoneal free air or apparent obstruction. The urinary bladder is unremarkable. Status post hysterectomy. There is diffuse osteopenia. There is a fracture of the left ischium. There is postoperative change from posterior spinal fusion, with pedicle screws and rods extending fr om L2 up into the lower thoracic spine, not completely included in this examination. There is prominent burst fracture of T12 and there are anterior wedge compression fracture deformitie s of L1 and L3 and L4. There is loss of height biconcavity of L5. There is multilevel degenerative disc disease. 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 Reviewed, dictated and finalized at location B. 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
[2020-04-15 09:08] LABS: Basophils Percent Auto 0.6 % (0.2-1.2); Eosinophils Percent Auto 0.4 % (0-4.4); Hematocrit 47.8 % (37.0-47.0); Hemoglobin 16.2 g/dL (12.0-15.0); Immature Granulocyte Absolute 0.01 K/mm3 (0.00-0.031); Immature Granulocyte Percent A 0.2 % (0-0.5); Lymphocytes Absolute Auto 1.15 K/mm3 (0.9-3.2); Lymphocytes Percent Auto 22.5 % (18.3-44.2); Mean Corpuscular HGB Conc 33.9 g/dl (32-36); Mean Corpuscular Hemoglobin 31.2 pg (26-34); Mean Corpuscular Volume 91.9 fl (80-100); Mean Platelet Volume 8.6 fl (7.4-10.4); Monocytes Absolute Auto 0.3 K/mm3 (0.1-0.6); Monocytes Percent Auto 6.7 % (2.6-8.5); Neutrophils Absolute Auto 3.6 K/mm3 (1.3-6.7); Neutrophils Percent Auto 69.6 % (45.5-73.1); Platelet Count Result 265 k/mm3 (150-375); Red Cell Distribution Width 13.3 % (11.5-14.5); White Blood Count 5.1 K/mm3 (4.5-10.0)
[2020-04-15 09:20] LABS: Alanine Aminotransferase 8 U/L (4-35); Albumin Level 4.6 g/dL (3.5-5.1); Alkaline Phosphatase 101 U/L (38-126); Anion Gap 7 mmol/L (8-16); Aspartate Amino Transferase 20 U/L (14-36); Bilirubin,Total 0.4 mg/dL (0.2-1.3); Blood Urea Nitrogen 11 mg/dL (7-17); Calcium 9.8 mg/dL (8.4-10.2); Carbon Dioxide 33 mmol/L (22-30); Chloride 99 mmol/L (98-107); Estimated CRCL calculation 52 ml/min; Estimated Glomerular Filt Rate > 60; Glucose 155 mg/dL (65-105); Lipase 52 U/L (23-300); Potassium 4.1 mmol/L (3.4-5.0); Sodium 139 mmol/L (137-145)
[2020-04-15 09:22] LABS: Add Urine Microscopic? YES; Appearance Urine Clear (Clear); Bilirubin Urine Negative (Negative); Blood Urine Negative (Negative); Color Urine Yellow (Yellow); Glucose Urine UA Negative (Negative); Ketones Urine Negative (Negative); Leukocyte Esterase Ur Negative LEU/UL (Negative); Mucus Urine Rare /lpf; Nitrate Urine Negative (Negative); Protein Urine 2+ mg/dL (Negative); RBC Urine 0-2 /hpf (0-2); Specific Grav Ur 1.014 (1.001-1.035); Squamous Epithelial Cell Urine Rare /hpf (Few); WBC Urine 0-3 /hpf
--- NOTE | 2020-04-15 09:53 | PC.NURSE ---
Pt to CT scan via stretcher at this time.
[2020-04-15] MEDS: ONDANSETRON INJ 4 MG/2 ML VIAL IV PUSH (10:19)
[2020-04-15] MEDS: MORPHINE SULFATE (*CRX) 4 MG/ML INJ IV PUSH ×3 (10:19→18:12)
--- NOTE | 2020-04-15 10:26 | ED.ABDPAIN ---
HPI - Abdominal Pain General Chief Complaint: Abdominal Pain Stated Complaint: abd pain Time Seen by Provider: 04/15/20 09:10 History of Present Illness HPI narrative: Patient is a 64-year-old female who presents ER with epigastric pain. Ongoing for the last 4 days. Feels similar to previous bouts of pancreatitis. Associate with diarrhea as well as nausea and vomiting. She sees Dr. Ly in [place] for all of her gastroenterology needs. Denies drinking alcohol that could have precipitated a flare. No fevers or chills or sweats. Related Data Home Medications Medication Instructions Recorded Confirmed No Home Medications 04/15/20 04/15/20 Allergies Allergy/AdvReac Type Severity Reaction Status Date / Time aspirin Allergy Unknown Unknown Verified 04/15/20 09:03 codeine Allergy Unknown Rash Verified 04/15/20 09:03 Penicillins Allergy Unknown Unknown Verified 04/15/20 09:03 Sulfa (Sulfonamide Allergy Unknown Unknown Verified 04/15/20 09:03 Antibiotics) acetaminophen [From Tylenol] Allergy Hives Verified 04/15/20 09:03 Review of Systems Review of Systems: All systems reviewed & are unremarkable except as noted in HPI and below Constitutional: Constitutional: Denies chills, Denies fever(s) and Reports weakness ENT: Denies nasal congestion and Denies sore throat Cardiovascular: Cardiovascular: Denies chest pain, Denies rapid heart rate and Denies radiating jaw, neck or arm pain Respiratory: Respiratory: Denies cough and Denies dyspnea Gastrointestinal: Gastrointestinal: Reports abdominal pain, Reports diarrhea, Reports nausea and Reports vomiting Genitourinary: Genitourinary: Denies nocturia, Denies dysuria and Denies flank pain [facility] Past Medical History Medical History (Updated 04/15/20 @ 16:38 by Raymond eHrnandez MD) GERD (gastroesophageal reflux disease) Pancreatitis Seizure after head injury Surgical History Surgical History H/O shoulder surgery right History of ankle surgery right History of hip surgery right Hx of cholecystectomy Previous back surgery Family History Family History Father , age 67 Cancer Mother , age 70 Malignant melanoma Other Testicular cancer Social History Social History Smoking packs per day: 0.25 Smoking cigarettes per day: 5.0 Years smoked: 40 Smoking pack-years: 10.00 Smoking status: Current every day smoker Tobacco type: cigarettes Second hand tobacco smoke exposure: Yes Alcohol intake: never Substance use: never Substance use type: marijuana Other substance usage details: a few weeks ago when she was nauseous she tried her son's. Gender identity (if verbalized by the patient): Female Spiritual care concerns: No Agree to blood products: Yes Exam Narrative: Exam Narrative: GENERAL: Chronically ill-appearing, underweight, and in no acute distress. HEAD: Normocephalic, atraumatic. ENT:Mucous membranes moist. CHEST: Clear to auscultation. No respiratory distress. HEART: Regular rate and rhythm. Normal peripheral pulses. ABDOMEN: Soft, mild epigastric tenderness, nondistended, normal active bowel sounds. EXTREMITIES: Normal range of motion. No edema. SKIN: Warm, dry, no rash. NEURO: Alert and oriented x3. Course Course Emergency Course: Patient with persistently elevated blood pressures in the 190s and 200s. Persistently nauseous and having vomiting despite 12 of Zofran. Will give Phenergan and hydralazine. Admit for observation. Chart review shows patient has not had history of malignant pressures in the past. Vital Signs Vital signs: Vital Signs Temperature 98.7 F 04/15/20 08:51 Pulse Rate 102 H 04/15/20 08:51 Respiratory Rate 20 04/15/20 08:51 Blood Pressure 171/122 H 04/15/20 08:51 Pulse Oximetr
--- NOTE | 2020-04-15 10:55 | PC.NURSE ---
Pt resting comfortable on stretcher, when this RN asked Is your pain any better after the morphine pt immediately opens her eyes and says No, Its not any better, I am in so much pain.
[2020-04-15] MEDS: BELLADONNA ALK/PHENOB ELIX 10 ML, MAG HYDROX/ALUMINUM HYD/SIMETH 30 ML, LIDOCAINE HCL 2... PO (13:14)
[2020-04-15] MEDS: hydrALAZINE HCL 20 MG/ML VIAL 10 MG IV PUSH (13:14)
[2020-04-15] MEDS: PROMETHAZINE HCL 25 MG/ML AMPUL 12.5 MG IV PUSH (13:45)
--- NOTE | 2020-04-15 18:15 | ADMGEN ---
This patient, Heather Carpio, was admitted to IMU Room 206-01 at 1750. Patient/family oriented to hospital policies and general routines including ID bracelet, bed and alarms, visiting hours, pain management, procedures, bathroom and other care routines, personal items, smoking policy, room service/diet, and visiting hours. Information on how to activate the Rapid Response Team has been discussed. Patient/Family are encouraged to report perceived risks to care and to ask questions if they do not understand what they are told or what they should do.
[2020-04-15] MEDS: PANTOPRAZOLE SODIUM IV 40 MG VIAL IV PUSH (20:16)
--- NOTE | 2020-04-15 20:27 | PM.IMHP ---
H&P: HPI History of Present Illness Date/Time: 04/15/20 20:27 Chief Complaint: Abdominal pain and nausea. Narrative: Heather Carpio is a 64 year old female who has a history of having chronic pancreatitis. The patient stated that she had a seizure in 2017 she fractured her right shoulder her back her anchor in her femur and was placed in rehab at that time. The patient developed a viral pneumonia and has been having problems with pancreatitis since then. She sees Dr. Ly in [facility] has been seeing him for many years. The patient presented today with epigastric pain that has been worsening over last 4 days. The patient tried to eat bland food which did not help. The patient has lost her sense of taste and is not been able to eat much at all. She has been having nausea and vomiting. She did try marijuana to help her with her appetite and the nausea which did help some. Patient is on amitriptyline it looks like that is her only home medication. Patient recently lost all her teeth due to the [employer]. She has not had any fever chills. By radiology as 4 mm right lower lobe nodule emphysema sliding hiatal hernia small status post cholecystectomy chronic pancreatitis. 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 Burst fracture of T12 compression fracture L1-L3 L4 and L5 fracture of left ischium. Date of service of 04/15/2020 Review of Systems Review of Systems: All systems reviewed & are unremarkable except as noted in HPI and below Constitutional: Constitutional: Reports as per HPI and Reports no additional constitutional complaints Eyes: Eyes: Reports as per HPI and Reports no additional eye complaints ENT: Reports system reviewed and no additional complaints, except as documented and Reports Normal hearing present Cardiovascular: Cardiovascular: Reports no additional cardiovascular complaints Respiratory: Respiratory: Reports no additional respiratory complaints and Reports no additional respiratory complaints Gastrointestinal: Gastrointestinal: Reports as per HPI and Reports no additional gastrointestinal complaints Musculoskeletal: Musculoskeletal: Reports no additional musculoskeletal complaints Integumentary/Breasts: Skin/Breast: Reports system reviewed and no additional complaints, except as docu and Reports as per HPI Neurologic: Reports system reviewed and no additional complaints, except as documented, Reports as per HPI and Reports Normal hearing present Psychiatric: Psychiatric: Reports no additional psychiatric complaints and Reports as per HPI Endocrine: Endocrine: Reports no additional endocrine complaints Hematologic/Lymphatic: Hematologic/Lymphatic: Reports no additional hematologic/lymphatic complaints Allergic/Immunologic: Allergic/Immunologic: Reports no additional allergic/immunologic complaints PMFSH Past Medical History Medical History (Updated 04/15/20 @ 20:35 by Jenn Brito NP) GERD (gastroesophageal reflux disease) Pancreatitis 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 Her son Sonny is the durable power securities attorney for healthcare. Patient is a full code. The patient continues to smoke 1 pack a cigarettes in a week. She does occasionally use marijuana no ot
[2020-04-15] MEDS: SODIUM CHLORIDE 0.9% IV 1,000 ML 100 ML IV CONT (20:57)
[2020-04-15] MEDS: AMITRIPTYLINE HCL 25 MG TABLET 125 MG PO (20:59)
[2020-04-15] MEDS: SODIUM CHLORIDE 0.9% IV 500 ML 999 ML IV CONT (21:01)
[2020-04-16] VITALS (12 sets, daily range): BP systolic 107–145; BP diastolic 68–75; PULSE 64–89; RESP 12–20; TEMP 36.1–37.4; O2SAT 90–95; BMI 17.7
[2020-04-16] MEDS: SODIUM CHLORIDE 0.9% IV 1,000 ML 100 ML IV CONT ×2 (03:07→17:49)
[2020-04-16] MEDS: MORPHINE SULFATE (*CRX) 4 MG/ML INJ IV PUSH ×7 (03:07→20:57)
[2020-04-16 06:57] LABS: Basophils Percent Auto 0.5 % (0.2-1.2); Eosinophils Absolute Auto 0.1 K/mm3 (0-0.3); Eosinophils Percent Auto 2.5 % (0-4.4); Immature Granulocyte Absolute 0.01 K/mm3 (0.00-0.031); Immature Granulocyte Percent A 0.2 % (0-0.5); Lymphocytes Absolute Auto 1.75 K/mm3 (0.9-3.2); Lymphocytes Percent Auto 43.2 % (18.3-44.2); Mean Corpuscular HGB Conc 31.8 g/dl (32-36); Mean Corpuscular Hemoglobin 30.4 pg (26-34); Mean Corpuscular Volume 95.4 fl (80-100); Mean Platelet Volume 8.9 fl (7.4-10.4); Monocytes Absolute Auto 0.3 K/mm3 (0.1-0.6); Monocytes Percent Auto 6.4 % (2.6-8.5); Neutrophils Absolute Auto 1.9 K/mm3 (1.3-6.7); Neutrophils Percent Auto 47.2 % (45.5-73.1); Platelet Count Result 194 k/mm3 (150-375); Red Blood Count 4.61 M/mm3 (4.2-5.4); Red Cell Distribution Width 13.6 % (11.5-14.5); White Blood Count 4.1 K/mm3 (4.5-10.0)
[2020-04-16 07:11] LABS: Lactic Acid Reflex 0.8 mmol/L (0.7-2.1)
[2020-04-16 07:13] LABS: Alanine Aminotransferase 6 U/L (4-35); Albumin Level 3.8 g/dL (3.5-5.1); Alkaline Phosphatase 77 U/L (38-126); Anion Gap 2 mmol/L (8-16); Aspartate Amino Transferase 19 U/L (14-36); Bilirubin,Total 0.3 mg/dL (0.2-1.3); Blood Urea Nitrogen 7 mg/dL (7-17); Calcium 8.8 mg/dL (8.4-10.2); Carbon Dioxide 32 mmol/L (22-30); Chloride 104 mmol/L (98-107); Estimated CRCL calculation 53 ml/min; Estimated Glomerular Filt Rate > 60; Glucose 80 mg/dL (65-105); Lipase 33 U/L (23-300); Magnesium 1.5 mg/dL (1.6-2.3); Potassium 3.4 mmol/L (3.4-5.0); Sodium 138 mmol/L (137-145)
[2020-04-16] MEDS: PANTOPRAZOLE SODIUM IV 40 MG VIAL IV PUSH (08:49)
[2020-04-16] MEDS: MAGNESIUM SULF 2 GM/WATER 50ML 2 GM/50 ML BAG IVPB (11:15)
[2020-04-16] MEDS: POTASSIUM CHLORIDE 20 MEQ TABLET 40 MEQ PO (13:39)
--- NOTE | 2020-04-16 16:51 | PM.IMPN ---
Progress Note: A&P Assessment and Plan (1) Chronic pancreatitis: Code(s): K86.1 - Other chronic pancreatitis Status: Acute Assessment and Plan: The patient typically sees Dr. Cameron in [place]. We can control her nausea. Hydrate the patient continue with pain management. Continue IV fluid 04/16/20 16:51 patient is 64-year-old female with history chronic pancreatitis presented emergency department with a complaint epigastric pain CT scan of abdomen did not show any significant pathology nor patient lipase are elevated however patient continued to complain of abdominal poor appetite, we have started the patient on IV hydrate and morphine for pain management, we have advanced her diet to full liquid and and will advance as tolerated if remains clinically stable will discharge the patient tomorrow. CT scan of the chest showed 4 mm nodul, will need to follow with her coin box inspector (2) Intractable vomiting: Code(s): R11.10 - Vomiting, unspecified Status: Acute Assessment and Plan: Patient was placed on IV Phenergan. Continue with IV fluids and I took her off of a regular diet put her on clear liquids for tonight. (3) Hypertension: Code(s): I10 - Essential (primary) hypertension Status: Acute Assessment and Plan: Patient is not on any medication for high blood pressure is low. (4) Anxiety: Code(s): F41.9 - Anxiety disorder, unspecified Status: Acute Assessment and Plan: Continue with amitriptyline. (5) GERD (gastroesophageal reflux disease): Code(s): K21.9 - Gastro-esophageal reflux disease without esophagitis Status: Acute Assessment and Plan: Continue pantoprazole (6) Acute dehydration: Code(s): E86.0 - Dehydration Status: Acute Assessment and Plan: Continue with IV fluids. (7) Tobacco abuse: Code(s): Z72.0 - Tobacco use Status: Chronic Assessment and Plan: I did offer nicotine patch and she has been consulted for at least 5 minutes on smoking cessation. Subjective Date/time seen: 04/16/20 16:51 patient is 64-year-old female with history chronic pancreatitis presented emergency department with a complaint epigastric pain CT scan of abdomen did not show any significant pathology nor patient lipase are elevated however patient continued to complain of abdominal poor appetite, we have started the patient on IV hydrate and morphine for pain management, we have advanced her diet to full liquid and and will advance as tolerated if remains clinically stable will discharge the patient tomorrow. CT scan of the chest showed 4 mm nodul, will need to follow with her coin box inspector Review of Systems Review of Systems: All systems reviewed & are unremarkable except as noted in HPI and below Exam Narrative: Exam Narrative: Patient appears chronically ill older than her age Patient is comfortable, NAD HEENT: eyes are clear and none icteric LUNGS:CTA HEART: RR S1S2 ABD: BS+, Soft and nontender Lower extremities: no edema SKIN: nonjaundiced Neuro: grossly intact. Objective Data Vital Signs Vital Signs: Vital Signs - 24 hr 04/15/20 17:08 04/15/20 17:30 04/15/20 20:00 Temperature 97.4 F L Pulse Rate 95 91 Respiratory Rate 17 18 Blood Pressure 114/78 101/67 Pulse Oximetry 94 04/15/20 20:50 04/15/20 21:46 04/15/20 22:00 Temperature Pulse Rate 92 Respiratory Rate Blood Pressure 95/65 L 97/63 L Pulse Oximetry 04/16/20 00:00 04/16/20 02:00 04/16/20 03:05 Temperature 97.5 F L 97.0 F L Pulse Rate 76 70 89 Respiratory Rate 20 20 Blood Pressure 110/72 126/72 Pulse Oximetry 95 94 04/16/20 04:00 04/16/20 05:33 04/16/20 08:00 Temperature 98.6 F Pulse Rate 71 64 80 Respiratory Rate 12 Blood Pressure 119/68 Pulse Oximetry 95 04/16/20 09:47 04/16/20 10:00 04/16/20 12:00 Temperature 98.6 F Pulse Rate 86 72 Respiratory Rate 12 Blood Pressur
--- NOTE | 2020-04-16 18:18 | PC.NURSE ---
This patient, Heather Carpio, was transferred to [facility] on 04/16/20 at 1818. Personal belongings sent with patient. Report given to RAJ Delong. Appropriate documentation sent with patient.
--- NOTE | 2020-04-16 18:37 | PC.NURSE ---
This patient, Heather Carpio, was received from IMU on 04/16/20 at 1837. Patient/family oriented to unit policies and routines
[2020-04-16] MEDS: AMITRIPTYLINE HCL 25 MG TABLET 125 MG PO (20:57)
[2020-04-17] MEDS: MORPHINE SULFATE (*CRX) 4 MG/ML INJ IV PUSH ×3 (01:01→09:08)
[2020-04-17] MEDS: SODIUM CHLORIDE 0.9% IV 1,000 ML 100 ML IV CONT (04:14)
[2020-04-17 05:37] VITALS: BP 116/78; PULSE 76; RESP 18; TEMP 36.2; O2SAT 95
[2020-04-17 05:53] LABS: Hemoglobin 12.3 g/dL (12.0-15.0); Mean Corpuscular HGB Conc 32.4 g/dl (32-36); Mean Corpuscular Hemoglobin 30.5 pg (26-34); Mean Corpuscular Volume 94.3 fl (80-100); Mean Platelet Volume 8.9 fl (7.4-10.4); Platelet Count Result 166 k/mm3 (150-375); Red Blood Count 4.03 M/mm3 (4.2-5.4); Red Cell Distribution Width 13.2 % (11.5-14.5)
[2020-04-17 06:01] LABS: Alanine Aminotransferase < 6 U/L (4-35); Alkaline Phosphatase 65 U/L (38-126); Anion Gap 3 mmol/L (8-16); Aspartate Amino Transferase 14 U/L (14-36); Bilirubin,Total 0.2 mg/dL (0.2-1.3); Blood Urea Nitrogen 4 mg/dL (7-17); Calcium 8.1 mg/dL (8.4-10.2); Carbon Dioxide 29 mmol/L (22-30); Chloride 105 mmol/L (98-107); Estimated CRCL calculation 53 ml/min; Estimated Glomerular Filt Rate > 60; Glucose 116 mg/dL (65-105); Magnesium 1.5 mg/dL (1.6-2.3); Potassium 4.3 mmol/L (3.4-5.0); Sodium 137 mmol/L (137-145)
[2020-04-17] MEDS: PANTOPRAZOLE SODIUM IV 40 MG VIAL IV PUSH (07:49)
[2020-04-17] MEDS: MAGNESIUM OXIDE 400 MG TABLET PO (07:49)
[2020-04-17] MEDS: MAGNESIUM SULFATE 3GM/D5W100ML 3 GM/100 ML BAG IVPB (09:08)
[2020-04-17 11:46] LABS: Anion Gap 8 mmol/L (8-16); Blood Urea Nitrogen 3 mg/dL (7-17); Calcium 8.3 mg/dL (8.4-10.2); Carbon Dioxide 25 mmol/L (22-30); Chloride 102 mmol/L (98-107); Estimated CRCL calculation 60 ml/min; Estimated Glomerular Filt Rate > 60; Glucose 90 mg/dL (65-105); Magnesium 2.3 mg/dL (1.6-2.3); Potassium 4.2 mmol/L (3.4-5.0); Sodium 135 mmol/L (137-145)
--- NOTE | 2020-04-17 12:46 | PM.DS ---
DS: Admitting Diagnosis Admitting Diagnosis Admitting Diagnosis: Chief Complaint: Abdominal pain and nausea. DS: Discharge Diagnosis Discharge Diagnosis (1) Chronic pancreatitis: Code(s): K86.1 - Other chronic pancreatitis Status: Acute Assessment and Plan: The patient typically sees Dr. Cameron in [place]. We can control her nausea. Hydrate the patient continue with pain management. Continue IV fluid 04/16/20 16:51 patient is 64-year-old female with history chronic pancreatitis presented emergency department with a complaint epigastric pain CT scan of abdomen did not show any significant pathology nor patient lipase are elevated however patient continued to complain of abdominal poor appetite, we have started the patient on IV hydrate and morphine for pain management, we have advanced her diet to full liquid and and will advance as tolerated if remains clinically stable will discharge the patient tomorrow. CT scan of the chest showed 4 mm nodul, will need to follow with her systems protection technician (2) Intractable vomiting: Code(s): R11.10 - Vomiting, unspecified Status: Acute Assessment and Plan: Patient was placed on IV Phenergan. Continue with IV fluids and I took her off of a regular diet put her on clear liquids for tonight. (3) Hypertension: Code(s): I10 - Essential (primary) hypertension Status: Acute Assessment and Plan: Patient is not on any medication for high blood pressure is low. (4) Anxiety: Code(s): F41.9 - Anxiety disorder, unspecified Status: Acute Assessment and Plan: Continue with amitriptyline. (5) GERD (gastroesophageal reflux disease): Code(s): K21.9 - Gastro-esophageal reflux disease without esophagitis Status: Acute Assessment and Plan: Continue pantoprazole (6) Acute dehydration: Code(s): E86.0 - Dehydration Status: Acute Assessment and Plan: Continue with IV fluids. (7) Tobacco abuse: Code(s): Z72.0 - Tobacco use Status: Chronic Assessment and Plan: I did offer nicotine patch and she has been consulted for at least 5 minutes on smoking cessation. DS: Summary Hospital Course Reason for hospitalization: Chief Complaint: Abdominal pain and nausea. Narrative: Heather Carpio is a 64 year old female who has a history of having chronic pancreatitis. The patient stated that she had a seizure in 2017 she fractured her right shoulder her back her anchor in her femur and was placed in rehab at that time. The patient developed a viral pneumonia and has been having problems with pancreatitis since then. She sees Dr. Cameron in [place] has been seeing him for many years. The patient presented today with epigastric pain that has been worsening over last 4 days. The patient tried to eat bland food which did not help. The patient has lost her sense of taste and is not been able to eat much at all. She has been having nausea and vomiting. She did try marijuana to help her with her appetite and the nausea which did help some. Patient is on amitriptyline it looks like that is her only home medication. Patient recently lost all her teeth due to the [place] [employer]. She has not had any fever chills. By radiology as 4 mm right lower lobe nodule emphysema sliding hiatal hernia small status post cholecystectomy chronic pancreatitis. 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 Burst fracture of T12 compression fracture L1-L3 L4 and L5 fracture of left ischium. Date of service of 04/15/2020 Hospital Course: The patient typically sees Dr. Cameron in [place]. We can control her nausea. Hydrate the patient continue with pain management. Continue IV fluid 04/16/20 16:51 patient is 64-year-old female with history chronic pancreatitis presented emergency department with a complaint epigastric pain CT scan of abdomen did
== END 2020-04-17 13:30 | disposition home health service (06) | DRG 440 ==
LOC: ANHED 16:38 → ANHIMU 17:01 → ANH2MED 04-17 12:46 → ANHIMU 04-20 16:38
PROVIDERS: Nurse Practitioner; Admitting Provider Internal Medicine; Emergency Provider Emergency Medicine; PCP Family Medicine; Visit Provider Family Medicine
DX: K86.1 Other chronic pancreatitis; E86.0 Dehydration; F17.210 Nicotine dependence, cigarettes, uncomplicated; K21.9 Gastro-esophageal reflux disease without esophagitis; I10 Essential (primary) hypertension; F41.9 Anxiety disorder, unspecified; Z28.21 Immunization not carried out because of patient refusal; Z79.899 Other long term (current) drug therapy
CPT/HCPCS: 36415; 51701; 74177; 80048; 80053; 81001; 83605; 83690; 83735; 84443; 85025; 85027; 96361; 96365; 96375; 96376; 99285; A9270; C9113; G0378; J0360; J2270; J2405; J2550; J3475; J7030; J7040; Q9967

== ENCOUNTER 2020-05-26 11:25 | Inpatient (IN) | payer MEDICARE, MEDICAID, SELFPAY ==
--- NOTE | ~2020-05-26 | XR_ITS ---
XR chest 2V 05/27/2020 12:45 Indication: Dyspnea Procedure: AP and lateral views of the chest Comparison: Comparison to multiple prior studies sequentially, with oldest reviewed study dated 07/07. Findings: Heart size normal. No focal air space disease, pulmonary edema, pleural effusion or suspect ed pneumothorax. The lungs are hyperinflated which is consistent with, but not diagnostic of chronic obstructive pulmonary disease. There are surgical changes in the proximal right humerus and thoracolu mbar spine. There is a chronic left humeral neck fracture. Impression: 1: No acute cardiopulmonary disease. Reviewed, dictated and finalized at location B. Impression: 1: No acute cardiopulmonary disease.
--- NOTE | ~2020-05-26 | CT_ITS ---
EXAMINATION: CT abdomen pelvis wo con DATE: 05/26/2020 20:51 INDICATION: Nausea and vomiting. TECHNIQUE: Computed tomography (CT) of the abdomen and pelvis was performed without intravenous contr ast. Automated exposure control and iterative reconstruction technique were employed. The dose-length product was 225.29 mGy-cm. COMPARISON: CT abdomen and pelvis 04/15/2020, chest CT 12/10/2018 FINDINGS: The visualized portions of the lung bases demonstrate a chronic 5 mm nodule in right lower lobe, likely benign. A calcified left lung nodule is consistent with old granulomatous disease. No pl eural effusion. The heart size is normal. There are coronary artery calcifications. No pericardial ef fusion. Calcifications in the liver and spleen are consistent with old granulomatous disease. There a re changes of cholecystectomy. There are calcifications throughout the pancreas, consistent with customer assistance representative adal pancreatitis. The adrenal glands and left kidney are normal. There is a 7 mm hemorrhagic cyst in right kidney. There is no urolithiasis. There are no dilated loops of bowel. The appendix is not visu alized. There are no pathologically enlarged lymph nodes. There is no free intraperitoneal fluid. The re is a healing fracture of left ischial tuberosity. There is an old healed fracture of proximal righ t femur with internal fixation. There is a healing insufficiency fracture of right sacral ala. There are changes of posterior fusion procedure from T10 to L2. There is a chronic burst fracture of L1. Th ere are chronic compression fractures of L3 on L4. There is severe lumbar spondylosis. IMPRESSION: 1. No specific etiology for the patient's symptoms. Reviewed, dictated and finalized at location A.
[2020-05-26 11:41] VITALS: BP 162/110; PULSE 90; RESP 18; TEMP 36.2; O2SAT 98
[2020-05-26 12:14] LABS: Basophils Percent Auto 0.3 % (0.2-1.2); Eosinophils Percent Auto 0.1 % (0-4.4); Hematocrit 53.5 % (37.0-47.0); Hemoglobin 17.8 g/dL (12.0-15.0); Immature Granulocyte Absolute 0.02 K/mm3 (0.00-0.031); Immature Granulocyte Percent A 0.3 % (0-0.5); Lymphocytes Absolute Auto 1.02 K/mm3 (0.9-3.2); Lymphocytes Percent Auto 14.2 % (18.3-44.2); Mean Corpuscular HGB Conc 33.3 g/dl (32-36); Mean Corpuscular Hemoglobin 29.8 pg (26-34); Mean Corpuscular Volume 89.6 fl (80-100); Mean Platelet Volume 9.1 fl (7.4-10.4); Monocytes Absolute Auto 0.4 K/mm3 (0.1-0.6); Monocytes Percent Auto 5.8 % (2.6-8.5); Neutrophils Absolute Auto 5.7 K/mm3 (1.3-6.7); Neutrophils Percent Auto 79.3 % (45.5-73.1); Platelet Count Result 249 k/mm3 (150-375); Red Blood Count 5.97 M/mm3 (4.2-5.4); Red Cell Distribution Width 14.2 % (11.5-14.5); White Blood Count 7.2 K/mm3 (4.5-10.0)
[2020-05-26 12:26] LABS: Alanine Aminotransferase 12 U/L (4-35); Albumin Level 5.1 g/dL (3.5-5.1); Alkaline Phosphatase 137 U/L (38-126); Anion Gap 13 mmol/L (8-16); Aspartate Amino Transferase 22 U/L (14-36); Bilirubin,Total 0.5 mg/dL (0.2-1.3); Blood Urea Nitrogen 33 mg/dL (7-17); Calcium 9.8 mg/dL (8.4-10.2); Carbon Dioxide 30 mmol/L (22-30); Chloride 95 mmol/L (98-107); Estimated CRCL calculation 20 ml/min; Estimated Glomerular Filt Rate 21; Glucose 116 mg/dL (65-105); Lipase 37 U/L (23-300); Potassium 3.3 mmol/L (3.4-5.0); Sodium 138 mmol/L (137-145)
[2020-05-26] MEDS: HALOPERIDOL LACTATE 5 MG/ML VIAL IV PUSH (12:38)
[2020-05-26] MEDS: LACTATED RINGERS 1,000 ML 999 ML IV CONT (12:38)
[2020-05-26 14:02] LABS: Add Urine Microscopic? YES; Appearance Urine Cloudy (Clear); Bacteria Urine Trace /hpf; Bilirubin Urine Negative (Negative); Blood Urine Negative (Negative); Color Urine Amber (Yellow); Glucose Urine UA Negative (Negative); Hyaline Casts Urine 50+ /lpf; Ketones Urine Negative (Negative); Leukocyte Esterase Ur 2+ LEU/UL (Negative); Mucus Urine Few /lpf; Nitrate Urine Negative (Negative); Protein Urine 2+ mg/dL (Negative); Specific Grav Ur 1.016 (1.001-1.035); Squamous Epithelial Cell Urine Many /hpf (Few); WBC Urine 21-30 /hpf
[2020-05-26] MEDS: PANTOPRAZOLE SODIUM IV 40 MG VIAL IV PUSH (14:08)
--- NOTE | 2020-05-26 15:16 | ED.NAVMDI ---
HPI - Nausea/Vomiting/Diarrhea General Chief complaint: Abdominal Pain Stated complaint: abd pain, n/v Time Seen by Provider: 05/26/20 11:48 Source: patient Mode of arrival: ambulatory Limitations: no limitations History of Present Illness HPI Narrative: 64-year-old female Complains of a 2-day history of intractable nausea and vomiting and generalized abdominal pain Patient says she has had this before and has previously been diagnosed as chronic pancreatitis, although during a recent stay here neither her lipase nor CT scan of the pancreas were particularly abnormal No fever, no diarrhea or constipation; no dysuria or other urinary symptoms Related Data Home Medications Medication Instructions Recorded Confirmed amitriptyline 125 mg PO HS 04/15/20 04/15/20 Allergies Allergy/AdvReac Type Severity Reaction Status Date / Time aspirin Allergy Unknown Unknown Verified 05/26/20 12:19 codeine Allergy Unknown Unknown,Garcia Verified 05/26/20 12:19 h Penicillins Allergy Unknown Unknown Verified 05/26/20 12:19 Sulfa (Sulfonamide Allergy Unknown Unknown Verified 05/26/20 12:19 Antibiotics) acetaminophen [From Tylenol] Allergy Hives Verified 05/26/20 12:19 Review of Systems Review of Systems: All systems reviewed & are unremarkable except as noted in HPI and below Constitutional: Constitutional: Denies chills, Denies fatigue, Denies fever(s), Denies headache(s) and Reports weakness Eyes: Eyes: Reports no additional eye complaints and Denies change in vision ENT: Denies headache(s), Denies epistaxis, Denies nasal congestion and Denies sore throat Cardiovascular: Cardiovascular: Denies chest pain, Denies leg edema, Denies palpitations and Denies dyspnea Respiratory: Respiratory: Denies cough, Denies dyspnea and Denies wheezing Gastrointestinal: Gastrointestinal: Reports abdominal pain, Denies constipation, Denies diarrhea, Reports nausea and Reports vomiting Genitourinary: Genitourinary: Denies hematuria, Denies urinary frequency and Denies dysuria Musculoskeletal: Musculoskeletal: Denies deformity, Denies arthralgias, Denies joint swelling, Denies muscle weakness and Denies numbness Integumentary/Breasts: Skin/Breast: Denies rash and Denies wounds Neurologic: Denies headache(s), Denies focal weakness, Denies numbness and Denies weakness Psychiatric: Psychiatric: Reports no additional psychiatric complaints Endocrine: Endocrine: Denies fatigue and Denies palpitations Hematologic/Lymphatic: Hematologic/Lymphatic: Denies easy bleeding and Denies easy bruising Allergic/Immunologic: Allergic/Immunologic: Denies wheezing PMFSH Past Medical History Medical History (Updated 05/26/20 @ 15:20 by Ravindra Torres MD) GERD (gastroesophageal reflux disease) Pancreatitis 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 Her son Sonny is the durable power buoy tender for healthcare. Patient is a full code. The patient continues to smoke 1 pack a cigarettes in a week. She does occasionally use marijuana no other illicit drugs. She denies any alcohol she stated the last time she drink any alcohol was September of last year when she was at a barbecue. Smoking packs per day: 0.25 Smoking cigarettes per day: 5.0 Years smoked: 50 Smoking pack-years: 12.50 Smoking status: Current ever
[2020-05-26 15:29] VITALS: BP 116/84; PULSE 86; RESP 16; TEMP 36.6; O2SAT 96
[2020-05-26 16:24] VITALS: BP 111/80; PULSE 80; RESP 16; O2SAT 96
[2020-05-26 16:40] VITALS: BP 117/80; PULSE 80; RESP 18; TEMP 36.6; O2SAT 94
--- NOTE | 2020-05-26 17:22 | ADMGEN ---
This patient, Heather Carpio, was admitted to [facility] Surg Room 322-01. Patient/family oriented to hospital policies and general routines including ID bracelet, bed and alarms, visiting hours, pain management, procedures, bathroom and other care routines, personal items, smoking policy, room service/diet, and visiting hours. Information on how to activate the Rapid Response Team has been discussed. Patient/Family are encouraged to report perceived risks to care and to ask questions if they do not understand what they are told or what they should do.
[2020-05-26] MEDS: LACTATED RINGERS 1,000 ML 200 ML IV CONT (17:28)
[2020-05-26 17:50] VITALS: BP 117/80; PULSE 80; RESP 16; TEMP 36.6; O2SAT 94
[2020-05-26] MEDS: BELLADONNA ALK/PHENOB ELIX 10 ML, MAG HYDROX/ALUMINUM HYD/SIMETH 30 ML, LIDOCAINE HCL 2... PO (18:01)
--- NOTE | 2020-05-26 20:32 | PM.IMHP ---
H&P: HPI History of Present Illness Date/Time: 05/26/20 20:32 this is a 64-year-old female patient has a history of having chronic pancreatitis. The patient was admitted here on 04/15/2020 for abdominal pain and nausea. The patient does not typically smoke marijuana but she did try it to help with her appetite and the nausea which did help some. Amitriptyline she takes to help her sleep. She has a history of a burst fracture of the T12 compression fracture L1-L3 L4 and L5 fracture of the left ischium. And her diet was advanced and she was discharged on 04/17/2020. The patient comes back today with complaints of 2 day history of intractable nausea vomiting and generalized abdominal pain. Her last admission her CT and her lipase were normal. Lipase is normal as well. The patient stated that she is going to see Dr. pradeep POSADAS in 2 weeks. I did give the patient a GI cocktail which she stated worked very well. I suspect that the patient has some type of gastritis. The patient was started on IV Pepcid and IV fluids. And now she is saying that she is hungry. She is tolerating liquids well. The patient was given Protonix IV push x1 Haldol IV push x1 and lactated Ringer's in the emergency room. The patient was found to have a UTI The patient is being admitted to observation date of service of 05/26/2020. Chief Complaint: Intractable nausea vomiting Review of Systems Review of Systems: All systems reviewed & are unremarkable except as noted in HPI and below Constitutional: Constitutional: Reports as per HPI and Reports no additional constitutional complaints Eyes: Eyes: Reports as per HPI and Reports no additional eye complaints ENT: Reports system reviewed and no additional complaints, except as documented and Reports Normal hearing present Cardiovascular: Cardiovascular: Reports no additional cardiovascular complaints Respiratory: Respiratory: Reports no additional respiratory complaints and Reports no additional respiratory complaints Gastrointestinal: Gastrointestinal: Reports as per HPI and Reports no additional gastrointestinal complaints Musculoskeletal: Musculoskeletal: Reports no additional musculoskeletal complaints Integumentary/Breasts: Skin/Breast: Reports system reviewed and no additional complaints, except as docu and Reports as per HPI Neurologic: Reports system reviewed and no additional complaints, except as documented, Reports as per HPI and Reports Normal hearing present Psychiatric: Psychiatric: Reports no additional psychiatric complaints and Reports as per HPI Endocrine: Endocrine: Reports no additional endocrine complaints Hematologic/Lymphatic: Hematologic/Lymphatic: Reports no additional hematologic/lymphatic complaints Allergic/Immunologic: Allergic/Immunologic: Reports no additional allergic/immunologic complaints PMFSH Past Medical History Medical History GERD (gastroesophageal reflux disease) Pancreatitis 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 Her son Sonny is the durable power employment law attorney for healthcare. Patient is a full code. The patient continues to smoke 1 pack a cigarettes in a week. She does occasionally use marijuana no other illicit drugs. She denies any alcohol she stated the last time she drink any
[2020-05-26] MEDS: SUCRALFATE 1 GM TABLET PO (21:26)
[2020-05-26] MEDS: FAMOTIDINE 20 MG/2 ML VIAL IV PUSH (21:26)
[2020-05-26] MEDS: POTASSIUM CHLORIDE 20 MEQ PACKET (FOR LIQUID) PO (21:26)
[2020-05-26 22:00] VITALS: BP 100/40; PULSE 80; RESP 18; TEMP 36.2; O2SAT 92
[2020-05-26] MEDS: MORPHINE SULFATE (*CRX) 2 MG/ML INJ IV PUSH (22:18)
[2020-05-26] MEDS: ONDANSETRON INJ 4 MG/2 ML VIAL IV PUSH (22:19)
[2020-05-27] VITALS (8 sets, daily range): BP systolic 106–145; BP diastolic 41–92; PULSE 58–91; RESP 18–20; TEMP 36.7–37.1; O2SAT 90–94; BMI 17.7
[2020-05-27] MEDS: MORPHINE SULFATE (*CRX) 2 MG/ML INJ IV PUSH ×4 (03:38→22:19)
[2020-05-27] MEDS: ONDANSETRON INJ 4 MG/2 ML VIAL IV PUSH ×3 (03:39→18:08)
[2020-05-27] MEDS: LACTATED RINGERS 1,000 ML 200 ML IV CONT (05:43)
[2020-05-27] MEDS: SUCRALFATE 1 GM TABLET PO ×4 (06:38→20:17)
[2020-05-27 06:53] LABS: Basophils Percent Auto 0.2 % (0.2-1.2); Eosinophils Percent Auto 0.2 % (0-4.4); Hematocrit 42.9 % (37.0-47.0); Hemoglobin 14.4 g/dL (12.0-15.0); Immature Granulocyte Absolute 0.01 K/mm3 (0.00-0.031); Immature Granulocyte Percent A 0.2 % (0-0.5); Lymphocytes Absolute Auto 1.16 K/mm3 (0.9-3.2); Lymphocytes Percent Auto 18.5 % (18.3-44.2); Mean Corpuscular HGB Conc 33.6 g/dl (32-36); Mean Corpuscular Hemoglobin 29.9 pg (26-34); Mean Corpuscular Volume 89.2 fl (80-100); Mean Platelet Volume 9.3 fl (7.4-10.4); Monocytes Absolute Auto 0.5 K/mm3 (0.1-0.6); Monocytes Percent Auto 7.7 % (2.6-8.5); Neutrophils Absolute Auto 4.6 K/mm3 (1.3-6.7); Neutrophils Percent Auto 73.2 % (45.5-73.1); Platelet Count Result 199 k/mm3 (150-375); Red Blood Count 4.81 M/mm3 (4.2-5.4); Red Cell Distribution Width 13.8 % (11.5-14.5); White Blood Count 6.3 K/mm3 (4.5-10.0)
[2020-05-27 07:09] LABS: Alanine Aminotransferase 7 U/L (4-35); Albumin Level 4.2 g/dL (3.5-5.1); Alkaline Phosphatase 103 U/L (38-126); Anion Gap 5 mmol/L (8-16); Aspartate Amino Transferase 18 U/L (14-36); Bilirubin,Total 0.5 mg/dL (0.2-1.3); Blood Urea Nitrogen 21 mg/dL (7-17); Calcium 8.9 mg/dL (8.4-10.2); Carbon Dioxide 31 mmol/L (22-30); Chloride 101 mmol/L (98-107); Estimated CRCL calculation 41 ml/min; Estimated Glomerular Filt Rate 50; Glucose 109 mg/dL (65-105); Lipase 26 U/L (23-300); Magnesium 1.3 mg/dL (1.6-2.3); Potassium 3.8 mmol/L (3.4-5.0); Sodium 137 mmol/L (137-145)
[2020-05-27] MEDS: FAMOTIDINE 20 MG/2 ML VIAL IV PUSH (09:54)
[2020-05-27] MEDS: LACTATED RINGERS 1,000 ML 75 ML IV CONT (10:49)
--- NOTE | 2020-05-27 11:35 | PM.IMPN ---
Progress Note: A&P Assessment and Plan (1) Intractable nausea and vomiting: Code(s): R11.2 - Nausea with vomiting, unspecified Status: Acute Assessment and Plan: Ongoing for 2 days. Improved following GI cocktail. No specific findings on CT a/p to explain symptoms but did show calcifications throughout pancreas. Is possible her symptoms are related to chronic pancreatitis, however lipase is within normal limits. Additional differentials include gastritis, PUD, underlying infectious etiology including UTI. Do not suspect intra-abdominal infection given lack of abdominal pain and diarrhea. Begin protonix bid Continue carafate Appreciate GI input. Full liquid diet. Advance diet per GI recommendations. (2) UTI (urinary tract infection): Code(s): N39.0 - Urinary tract infection, site not specified Status: Acute Assessment and Plan: Urinalysis grossly abnormal upon presentation. She does endorse dysuria. No leukocytosis. She remains afebrile. She does have a history of ESBL in November 2019. Initiate primaxin for potential ESBL coverage while awaiting urine cultures. Penicillin allergy (rash) noted and will monitor closely. Await final urine culture results and tailor antibiotics accordingly (3) Acute kidney injury: Code(s): N17.9 - Acute kidney failure, unspecified Status: Acute Assessment and Plan: Creatinine upon admission was elevated at 2.3. Likely prerenal secondary to dehydration as above. Creatinine has improved following IV fluid rehydration. 1.1 today. Continue gentle IV fluids as above. Monitor renal function closely and renally dose medications. (4) Dehydration: Code(s): E86.0 - Dehydration Status: Acute Assessment and Plan: Likely related to intractable nausea/vomiting with poor PO intake. Continue gentle IV fluid rehydration until diet is advanced. Encourage PO intake. (5) Hypomagnesemia: Code(s): E83.42 - Hypomagnesemia Status: Acute Assessment and Plan: Magnesium slightly decreased to 1.3 today. Likely due to nausea and vomiting. Appears to be a chronic issue as she is on magnesium at home Replace with 2 g IV magnesium sulfate Continue PO magnesium oxide (6) Dyspnea: Code(s): R06.00 - Dyspnea, unspecified Status: Acute Assessment and Plan: She feels bit short of breath. Faint inspiratory wheezes noted on exam. Suspect this is related to COPD, which she states that she has never been diagnosed with. No cough. Do not suspect respiratory infection at this time Obtain CXR Begin albuterol nebulizers She will benefit from referral for PFTs as an outpatient. Smoking cessation discussed as below (7) Tobacco abuse: Code(s): Z72.0 - Tobacco use Status: Chronic Assessment and Plan: She smokes 1 pack of cigarettes per day. She declines need for nicotine patch at this time. Smoking cessation has been encouraged. Subjective Date/time seen: 05/27/20 11:35 Interval history: Date of service: 05/27/2020 Heather Rasmussen is a 64-year-old female with a history of chronic pancreatitis, tobacco abuse, and GERD who is seen in follow-up for nausea and vomiting. She is feeling a bit better today. Her nausea has resolved and she has not had any additional episodes of emesis. She is still endorsing very mild epigastric pain. She is tolerating full liquid diet. She is feeling hungry and would like to trial solids. She denies abdominal cramping or bloating. No diarrhea. Last bowel movement was 2 days ago. She is endorsing dysuria but denies hematuria, urgency, or frequency. She endorses shortness of breath and has faint wheezes. Denies chest pain or palpitations. No cough or sputum production. She feels a bit lightheaded upon standing. Denies dizziness or weakness. Review of Systems Review of Systems: All systems reviewed
[2020-05-27] MEDS: MAGNESIUM SULF 2 GM/WATER 50ML 2 GM/50 ML BAG IVPB (12:51)
[2020-05-27] MEDS: ALBUTEROL SULFATE NEB 2.5 MG/0.5 ML INH INHALATION ×2 (15:35→21:13)
[2020-05-27] MEDS: AMITRIPTYLINE HCL 25 MG TABLET 125 MG PO (20:17)
[2020-05-27] MEDS: PANTOPRAZOLE 40 MG TABLET PO (20:17)
[2020-05-28] VITALS (13 sets, daily range): BP systolic 98–116; BP diastolic 51–70; PULSE 58–75; RESP 18–20; TEMP 37–37.1; O2SAT 91–100
[2020-05-28] MEDS: ALBUTEROL SULFATE NEB 2.5 MG/0.5 ML INH INHALATION ×4 (02:20→20:21)
[2020-05-28] MEDS: MORPHINE SULFATE (*CRX) 2 MG/ML INJ IV PUSH ×3 (02:38→13:17)
[2020-05-28] MEDS: LACTATED RINGERS 1,000 ML 75 ML IV CONT (02:38)
[2020-05-28] MEDS: SUCRALFATE 1 GM TABLET PO ×4 (06:45→20:36)
--- NOTE | 2020-05-28 07:00 | PC.NURSE ---
All assessment and meds passed from 189905/27/2020 by RAJ Payne were passed by Carlotta Vaughn.
[2020-05-28 07:59] LABS: Anion Gap 3 mmol/L (8-16); Blood Urea Nitrogen 13 mg/dL (7-17); Calcium 8.4 mg/dL (8.4-10.2); Carbon Dioxide 31 mmol/L (22-30); Chloride 101 mmol/L (98-107); Estimated CRCL calculation 55 ml/min; Estimated Glomerular Filt Rate > 60; Glucose 112 mg/dL (65-105); Magnesium 1.5 mg/dL (1.6-2.3); Potassium 3.6 mmol/L (3.4-5.0); Sodium 135 mmol/L (137-145)
--- NOTE | 2020-05-28 08:13 | WPDGICN ---
Assessment and Plan Assessment and plan (1) Chronic pancreatitis: Qualifiers: Pancreatitis type: unspecified pancreatitis type Qualified Code(s): K86.1 - Other chronic pancreatitis Code(s): K86.1 - Other chronic pancreatitis Status: Chronic Assessment and Plan: liver enzymes and amylase normal, had EGD last year by Dr Marin that was normal still could be exacerbation of chronic pancreatitis with normal amylase, she has been on liquid diet and now she is feeling like eating more, advance to low fat diet she will follow up with her GI Doctor Aliyah soon (2) Abdominal pain: Qualifiers: Abdominal location: epigastric Qualified Code(s): R10.13 - Epigastric pain Code(s): R10.9 - Unspecified abdominal pain Status: Acute Assessment and Plan: from chronic pancreatitis, feeling better with medical treatment (3) Intractable nausea and vomiting: Code(s): R11.2 - Nausea with vomiting, unspecified Status: Acute Assessment and Plan: better, antiemetics prn (4) Acute dehydration: Code(s): E86.0 - Dehydration Status: Acute Assessment and Plan: resolved (5) Acute kidney injury: Code(s): N17.9 - Acute kidney failure, unspecified Status: Acute Assessment and Plan: resolved after fluids (6) Tobacco abuse: Code(s): Z72.0 - Tobacco use Status: Chronic Assessment and Plan: quit smoking GI Consult Note Consult date/time: 05/28/20 08:13 Reason for consult: chronic pancreatitis, abdominal pain HPI: Heather Carpio is a 64 year old female with history of idiopathic chronic pancreatitis and previous cholecystectomy, copd, smoker, she has chronic abdominal pain and multiple CT scan a/p including MRCP reviewed, consistent with chronic pancreatitis (apparently started in 2017 after had seizure and fracture and was placed in rehab at that time), her GI doctor is Dr. Ly in [facility]. She came with worsening epigastric pain for last 3-4 days similar to previous episodes of pancreatitis. CT scan a/p reviewed, chronic pancreatitis but no acute issues to explain pain. She says that pain is better and would like to eat regular diet. Creat 2.3 but now normal, liver enzymes and amylase normal. Review of Systems Constitutional: Constitutional: Denies chills Eyes: Eyes: Denies blurry vision ENT: Reports Normal hearing present Cardiovascular: Cardiovascular: Denies chest pain Gastrointestinal: Gastrointestinal: Reports abdominal pain and Reports nausea Genitourinary: Genitourinary: Denies hematuria Musculoskeletal: Musculoskeletal: Denies neck pain Integumentary/Breasts: Skin/Breast: Denies dry skin Neurologic: Denies headache(s) Psychiatric: Psychiatric: Reports anxiety [facility] Past Medical History Medical History GERD (gastroesophageal reflux disease) Pancreatitis 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 Her son Sonny is the durable power trial attorney for healthcare. Patient is a full code. The patient continues to smoke 1 pack a cigarettes in a week. She does occasionally use marijuana no other illicit drugs. She denies any alcohol she stated the last time she drink any alcohol was September of last year w
[2020-05-28] MEDS: MAGNESIUM OXIDE 400 MG TABLET PO (08:48)
[2020-05-28] MEDS: PANTOPRAZOLE 40 MG TABLET PO ×2 (08:48→20:36)
[2020-05-28] MEDS: MAGNESIUM SULF 2 GM/WATER 50ML 2 GM/50 ML BAG IVPB (11:39)
[2020-05-28] MEDS: ONDANSETRON INJ 4 MG/2 ML VIAL IV PUSH (13:17)
--- NOTE | 2020-05-28 16:07 | PM.IMPN ---
Progress Note: A&P Assessment and Plan (1) Intractable nausea and vomiting: Code(s): R11.2 - Nausea with vomiting, unspecified Status: Acute Assessment and Plan: Ongoing for 2 days prior to admission. Improved following GI cocktail. No specific findings on CT a/p to explain symptoms but did show calcifications throughout pancreas. Is possible her symptoms are related to chronic pancreatitis, however lipase is within normal limits. Additional differentials include gastritis, PUD, underlying infectious etiology including UTI. Do not suspect intra-abdominal infection given lack of abdominal pain and diarrhea. Begin protonix bid Continue carafate Appreciate GI input. Continue low-fat diet She needs to follow-up with her established hospital educator, Dr. Ly (2) UTI (urinary tract infection): Code(s): N39.0 - Urinary tract infection, site not specified Status: Acute Assessment and Plan: Urinalysis grossly abnormal upon presentation. She does endorse dysuria. No leukocytosis. She remains afebrile. She does have a history of ESBL in November 2019. Initial culture was contaminated. Repeat urine culture. Discussed with her how to obtain clean-catch. Continue primaxin for ESBL coverage while awaiting urine cultures. Pyridium for dysuria Await final urine culture results and tailor antibiotics accordingly (3) Acute kidney injury: Code(s): N17.9 - Acute kidney failure, unspecified Status: Acute Assessment and Plan: Creatinine upon admission was elevated at 2.3. Likely prerenal secondary to dehydration as above. Creatinine has improved following IV fluid rehydration. 0.8 today. Discontinue IV fluids as patient is tolerating p.o. intake and has been adequately rehydrated. Monitor renal function closely and renally dose medications. (4) Dehydration: Code(s): E86.0 - Dehydration Status: Acute Assessment and Plan: Likely related to intractable nausea/vomiting with poor PO intake. She is tolerating p.o. intake at this time and appears euvolemic. IV fluids discontinued as above. Encourage PO intake. (5) Hypomagnesemia: Code(s): E83.42 - Hypomagnesemia Status: Acute Assessment and Plan: Magnesium slightly decreased to 1.5 today, improved from yesterday. Likely due to nausea and vomiting. Appears to be a chronic issue as she is on magnesium at home Replace with 2 g IV magnesium sulfate Continue PO magnesium oxide (6) Dyspnea: Code(s): R06.00 - Dyspnea, unspecified Status: Acute Assessment and Plan: Improved. Faint inspiratory wheezes noted on exam. Suspect this is related to COPD, which she states that she has never been diagnosed with. No cough. Do not suspect respiratory infection at this time. CXR negative for acute airspace disease, pulmonary edema, pleural effusion, or pneumothorax. Lungs are hyperinflated which supports COPD as most likely diagnosis Continue albuterol nebulizers She will benefit from referral for PFTs as an outpatient. Smoking cessation discussed as below (7) Tobacco abuse: Code(s): Z72.0 - Tobacco use Status: Chronic Assessment and Plan: She smokes 1 pack of cigarettes per day. She declines need for nicotine patch at this time. Smoking cessation has been encouraged. Subjective Date/time seen: 05/28/20 16:07 Interval history: Date of service: 05/28/2020 Heather Rasmussen is a 64-year-old female with a history of chronic pancreatitis, tobacco abuse, and GERD who is seen in follow-up for nausea and vomiting. Her nausea has improved today. She has not had any episodes of emesis. She is tolerating her diet. She does complain of epigastric pain that she states is rather consistent. She says sometimes eating well help it and sometimes eating makes it worse. She does feel dizzy upon standing. She denies lightheadedness, wea
[2020-05-28] MEDS: PHENAZOPYRIDINE HCL 100 MG TABLET 200 MG PO (16:55)
[2020-05-28 17:42] LABS: Hemoglobin A1C 5.2 % (<5.7)
[2020-05-28] MEDS: HYDROcodone/acetaminophen (*CRX) 5-325 MG TABLET 1 TAB PO (18:44)
[2020-05-28] MEDS: AMITRIPTYLINE HCL 25 MG TABLET 125 MG PO (20:36)
[2020-05-29] VITALS (10 sets, daily range): BP systolic 118–132; BP diastolic 68–81; PULSE 57–80; RESP 12–95; TEMP 36.7–37.3; O2SAT 92–95
[2020-05-29] MEDS: HYDROcodone/acetaminophen (*CRX) 5-325 MG TABLET 1 TAB PO ×5 (00:49→21:13)
[2020-05-29] MEDS: ALBUTEROL SULFATE NEB 2.5 MG/0.5 ML INH INHALATION ×4 (01:52→19:24)
[2020-05-29] MEDS: SUCRALFATE 1 GM TABLET PO ×4 (05:54→20:27)
[2020-05-29 06:11] LABS: Hematocrit 36.1 % (37.0-47.0); Hemoglobin 11.7 g/dL (12.0-15.0); Mean Corpuscular HGB Conc 32.4 g/dl (32-36); Mean Corpuscular Hemoglobin 29.7 pg (26-34); Mean Corpuscular Volume 91.6 fl (80-100); Mean Platelet Volume 9.3 fl (7.4-10.4); Platelet Count Result 145 k/mm3 (150-375); Red Blood Count 3.94 M/mm3 (4.2-5.4); Red Cell Distribution Width 13.8 % (11.5-14.5); White Blood Count 4.3 K/mm3 (4.5-10.0)
[2020-05-29 06:19] LABS: Anion Gap 4 mmol/L (8-16); Blood Urea Nitrogen 14 mg/dL (7-17); Calcium 8.5 mg/dL (8.4-10.2); Carbon Dioxide 32 mmol/L (22-30); Chloride 103 mmol/L (98-107); Estimated CRCL calculation 49 ml/min; Estimated Glomerular Filt Rate > 60; Glucose 100 mg/dL (65-105); Potassium 3.6 mmol/L (3.4-5.0); Sodium 139 mmol/L (137-145)
[2020-05-29] MEDS: PANTOPRAZOLE 40 MG TABLET PO ×2 (08:09→20:27)
[2020-05-29] MEDS: MAGNESIUM OXIDE 400 MG TABLET PO (08:09)
--- NOTE | 2020-05-29 13:52 | P.PNIM_ITS ---
Progress Note: A&P Assessment and Plan (1) Epigastric pain: Code(s): R10.13 - Epigastric pain Status: Acute Assessment and Plan: [place] to be secondary to chronic pancreatitis ongoing since 2016, which has been worked up by her technical instructor course developer Dr. Ly, and ultimately felt to be idiopathic in nature She is s/p cholecystectomy. Pain is variable and intermittent. CT abdomen/pelvis showed chronic pancreatitis without any acute findings. Lipase within normal limits. LFTs within normal limits. * Gastroenterology has been consulted and input is appreciated. To follow-up with her established technical instructor course developer as an outpatient * Continue low-fat, bland diet * Analgesics available as needed for pain. (2) Intractable nausea and vomiting: Code(s): R11.2 - Nausea with vomiting, unspecified Status: Acute Assessment and Plan: Ongoing for 2 days prior to admission. No specific findings on CT a/p to explain symptoms but did show calcifications throughout pancreas. This is likely related to her chronic pancreatitis. Gastritis considered. Do not suspect intra-abdominal infection given lack of diarrhea and signs/symptoms to suggest underlying infectious etiology. * Protonix bid * Continue carafate * Antiemetics available as needed * Continue low-fat diet * She needs to follow-up with her established technical instructor course developer, Dr. Ly (3) UTI (urinary tract infection): Code(s): N39.0 - Urinary tract infection, site not specified Status: Acute Assessment and Plan: Urinalysis grossly abnormal upon presentation. She does endorse dysuria. No leukocytosis. She remains afebrile. She does have a history of ESBL in November 2019. Initial culture was contaminated. * Repeat urine culture is pending. * Continue primaxin for ESBL coverage given history while awaiting urine cultures. * Pyridium for dysuria * Await final urine culture results and tailor antibiotics accordingly * Hopeful discharge tomorrow on p.o. antibiotics upon receiving results of urine culture (4) Acute kidney injury: Code(s): N17.9 - Acute kidney failure, unspecified Status: Acute Assessment and Plan: Creatinine upon admission was elevated at 2.3. Likely prerenal secondary to dehydration as above. Creatinine has improved following IV fluid rehydration. 0.9 today. * IV fluids discontinued as patient is tolerating p.o. intake and has been adequately rehydrated. * Monitor renal function closely and renally dose medications. (5) Dehydration: Code(s): E86.0 - Dehydration Status: Acute Assessment and Plan: Likely related to intractable nausea/vomiting with poor PO intake. She is tolerating p.o. intake at this time and appears euvolemic. * IV fluids discontinued as above. Encourage PO intake. (6) Hypomagnesemia: Code(s): E83.42 - Hypomagnesemia Status: Acute Assessment and Plan: Magnesium slightly decreased, likely due to nausea and vomiting. Appears to be a chronic issue as she is on home magnesium supplementation * Continue PO magnesium oxide * Monitor magnesium levels (7) Dyspnea: Code(s): R06.00 - Dyspnea, unspecified Status: Acute Assessment and Plan: Resolved. Faint wheezes noted on exam. Suspect this is related to COPD, which she states that she has never been diagnosed with. No cough. Do not suspect respiratory infection. CXR negative for acute airspace disease, pulmonary nicole a, pleural effusion, or pneumothorax. Lungs are hyperinfla
--- NOTE | 2020-05-29 13:52 | PM.IMPN ---
Progress Note: A&P Assessment and Plan (1) Epigastric pain: Code(s): R10.13 - Epigastric pain Status: Acute Assessment and Plan: [place] to be secondary to chronic pancreatitis ongoing since 2017, which has been worked up by her survey superintendent Dr. Ly, and ultimately felt to be idiopathic in nature She is s/p cholecystectomy. Pain is variable and intermittent. CT abdomen/pelvis showed chronic pancreatitis without any acute findings. Lipase within normal limits. LFTs within normal limits. Gastroenterology has been consulted and input is appreciated. To follow-up with her established survey superintendent as an outpatient Continue low-fat, bland diet Analgesics available as needed for pain. (2) Intractable nausea and vomiting: Code(s): R11.2 - Nausea with vomiting, unspecified Status: Acute Assessment and Plan: Ongoing for 2 days prior to admission. No specific findings on CT a/p to explain symptoms but did show calcifications throughout pancreas. This is likely related to her chronic pancreatitis. Gastritis considered. Do not suspect intra-abdominal infection given lack of diarrhea and signs/symptoms to suggest underlying infectious etiology. Protonix bid Continue carafate Antiemetics available as needed Continue low-fat diet She needs to follow-up with her established survey superintendent, Dr. Ly (3) UTI (urinary tract infection): Code(s): N39.0 - Urinary tract infection, site not specified Status: Acute Assessment and Plan: Urinalysis grossly abnormal upon presentation. She does endorse dysuria. No leukocytosis. She remains afebrile. She does have a history of ESBL in November 2019. Initial culture was contaminated. Repeat urine culture is pending. Continue primaxin for ESBL coverage given history while awaiting urine cultures. Pyridium for dysuria Await final urine culture results and tailor antibiotics accordingly Hopeful discharge tomorrow on p.o. antibiotics upon receiving results of urine culture (4) Acute kidney injury: Code(s): N17.9 - Acute kidney failure, unspecified Status: Acute Assessment and Plan: Creatinine upon admission was elevated at 2.3. Likely prerenal secondary to dehydration as above. Creatinine has improved following IV fluid rehydration. 0.9 today. IV fluids discontinued as patient is tolerating p.o. intake and has been adequately rehydrated. Monitor renal function closely and renally dose medications. (5) Dehydration: Code(s): E86.0 - Dehydration Status: Acute Assessment and Plan: Likely related to intractable nausea/vomiting with poor PO intake. She is tolerating p.o. intake at this time and appears euvolemic. IV fluids discontinued as above. Encourage PO intake. (6) Hypomagnesemia: Code(s): E83.42 - Hypomagnesemia Status: Acute Assessment and Plan: Magnesium slightly decreased, likely due to nausea and vomiting. Appears to be a chronic issue as she is on home magnesium supplementation Continue PO magnesium oxide Monitor magnesium levels (7) Dyspnea: Code(s): R06.00 - Dyspnea, unspecified Status: Acute Assessment and Plan: Resolved. Faint wheezes noted on exam. Suspect this is related to COPD, which she states that she has never been diagnosed with. No cough. Do not suspect respiratory infection. CXR negative for acute airspace disease, pulmonary edema, pleural effusion, or pneumothorax. Lungs are hyperinflated which supports COPD as most likely diagnosis Continue albuterol nebulizers She will benefit from referral for PFTs as an outpatient. Smoking cessation discussed as below (8) Tobacco abuse: Code(s): Z72.0 - Tobacco use Status: Chronic Assessment and Plan: She smokes 1 pack of cigarettes per day. She declines need for nicotine patch at this time. Smoking cessation has b
--- NOTE | 2020-05-29 14:00 | PCNFU ---
Nutrition Follow-Up Complete: Underweight related to insufficient calorie intake as evidenced by BMI of 17.8 and patient statements. Goal: Patient to consume 50% of meals/supplements or greater. Patient is meeting current goal. No new goal. Pt current nutrition is Low Fat with Ensure compact BID. Last recorded weight is 54.6 kg, no new weight to report. Bowel Motility:+BM reported 05/28 Labs Reviewed:Hct 36.1,Hgb 11.7 Meds Noted:Montchanin,Mag ox, Carafate,Protonix,D5w,Elavil. Additional Notes:Nutrition follow up. Patient is currently on a Low fat diet, eating 50-95% of meals. Ensure compact BID providing an additional 220 kcals and 9 gms protein. Agree with diet orders. Plans for discharge over the weekend. Monitoring: Follow up every 7 days.
--- NOTE | 2020-05-29 17:56 | WPDGIPROGNO ---
Progress Note: A&P Assessment and Plan (1) Chronic pancreatitis: Code(s): K86.1 - Other chronic pancreatitis Status: Acute Assessment and Plan: she is feeling better probably can go home tomorrow with oral pain meds and follow-up with Dr Ly (her GI doctor) (2) Nausea: Code(s): R11.0 - Nausea Status: Acute Assessment and Plan: antiemetics prn tolerating diet now (3) Epigastric pain: Code(s): R10.13 - Epigastric pain Status: Acute (4) Acute kidney injury: Code(s): N17.9 - Acute kidney failure, unspecified Status: Acute Assessment and Plan: resolved (5) Dehydration: Code(s): E86.0 - Dehydration Status: Acute Assessment and Plan: resolved after hydration Subjective Date/time seen: 05/29/20 17:56 Interval history: feeling better, eating more and pain improving Review of Systems Review of Systems: All systems reviewed & are unremarkable except as noted in HPI and below Exam Const: General: comfortable and no acute distress HENMT: General nose exam: Normal nares present Eyes: General: appearance normal, both eyes and all related structures Neck: Neck: no JVD Resp: Auscultation: rhonchi and diminished lung sounds Cardio: Rate: regular rate Rhythm: regular rhythm GI: Inspection: non-distended GI Palp: Yes Soft to palpation and Yes Tenderness to palpation present (GI) (minimal tender, no rebound) Auscultation: normal bowel sounds Skin: General skin exam: normal color Neuro: Speech: normal speech Motor exam (neuro): Normal motor muscle tone present throughout Extrem: General: normal to inspection Psych: Mental Status: mental status grossly normal Objective Data Vital Signs Vital Signs: Vital Signs - 24 hr 05/28/20 20:22 05/28/20 20:32 05/28/20 22:00 Temperature 98.6 F Pulse Rate 75 74 58 L Respiratory Rate 20 20 20 Blood Pressure 98/54 L Pulse Oximetry 93 05/29/20 01:53 05/29/20 02:01 05/29/20 06:00 Temperature 98.1 F Pulse Rate 77 78 57 L Respiratory Rate 20 20 18 Blood Pressure 131/81 Pulse Oximetry 93 05/29/20 08:19 05/29/20 08:30 05/29/20 13:51 Temperature Pulse Rate 68 72 72 Respiratory Rate 20 20 20 Blood Pressure Pulse Oximetry 92 05/29/20 14:00 Temperature 99.2 F Pulse Rate 63 Respiratory Rate 16 Blood Pressure 132/74 Pulse Oximetry 93 Intake/Output Intake/Output: Intake & Output 05/26/20 05/27/20 05/28/20 05/29/20 23:59 23:59 23:59 23:59 Intake Total 1999 2370 3260 1370 Output Total 1000 150 400 Balance 1999 1370 3110 970 Meds/Results Medications: Active Medications Generic Name Dose Route Start Last Admin Trade Name Freq PRN Reason Stop Dose Admin Acetaminophen 650 mg 05/29/20 14:08 Acetaminophen 325 Mg Tablet PO Q4H PRN Pain 1-5, fever Hydrocodone Bitart/Acetaminophen 1 tab 05/29/20 14:08 05/29/20 16:57 Hydrocodone/Acetaminophen (*Crx) 5-325 Mg Tablet PO 1 tab Q4-6H PRN Administration Pain Rated 6-10 Albuterol 2.5 mg 05/27/20 14:00 05/29/20 13:50 Albuterol Sulfate Neb 2.5 Mg/0.5 Ml Inh INHALATION 2.5 mg Q6HRT PETRONA Administration Amitriptyline HCl 125 mg 05/27/20 21:00 05/28/20 20:36 Amitriptyline Hcl 25 Mg Tablet PO 125 mg HS PETRONA Administration Imipenem/Cilastatin Sodium 250 mg in 100 mls @ 300 mls/hr 05/27/20 12:30 05/29/20 17:00 Primaxin 250 Mg/D5w 100 Ml IVPB 300 mls/hr Q6HR PETRONA Administration Magnesium Oxide 400 mg 05/28/20 09:00 05/29/20 08:09 Magnesium Oxide 400 Mg Tablet PO 400 mg QAM PETRONA Administration Ondansetron HCl 4 mg 05/26/20 15:11 05/28/20 13:17 Ondansetron Inj 4 Mg/2 Ml Vial IV PUSH 4 mg Q4H PRN Administration Nausea Pantoprazole Sodium 40 mg 05/27/20 21:00 05/29/20 08:09 Pantoprazole 40 Mg Tablet PO 40 mg Q12HR PETRONA Administration Sucralfate 1 gm 05/26/20 21:00 05/29/20 16:57 Sucralfate 1 Gm Tab
[2020-05-29] MEDS: AMITRIPTYLINE HCL 25 MG TABLET 125 MG PO (20:28)
[2020-05-30] VITALS (8 sets, daily range): BP systolic 155; BP diastolic 9; PULSE 58–84; RESP 12–20; TEMP 36.1; O2SAT 95
[2020-05-30] MEDS: ALBUTEROL SULFATE NEB 2.5 MG/0.5 ML INH INHALATION ×3 (01:58→13:33)
[2020-05-30] MEDS: HYDROcodone/acetaminophen (*CRX) 5-325 MG TABLET 1 TAB PO (06:15)
[2020-05-30] MEDS: SUCRALFATE 1 GM TABLET PO ×2 (06:16→10:49)
[2020-05-30 06:34] LABS: Hematocrit 36.6 % (37.0-47.0); Hemoglobin 11.6 g/dL (12.0-15.0); Mean Corpuscular HGB Conc 31.7 g/dl (32-36); Mean Corpuscular Hemoglobin 29.3 pg (26-34); Mean Corpuscular Volume 92.4 fl (80-100); Mean Platelet Volume 9.2 fl (7.4-10.4); Platelet Count Result 162 k/mm3 (150-375); Red Blood Count 3.96 M/mm3 (4.2-5.4); Red Cell Distribution Width 13.8 % (11.5-14.5); White Blood Count 4.3 K/mm3 (4.5-10.0)
[2020-05-30 06:47] LABS: Anion Gap 2 mmol/L (8-16); Blood Urea Nitrogen 13 mg/dL (7-17); Calcium 8.7 mg/dL (8.4-10.2); Carbon Dioxide 33 mmol/L (22-30); Chloride 103 mmol/L (98-107); Estimated CRCL calculation 49 ml/min; Estimated Glomerular Filt Rate > 60; Glucose 109 mg/dL (65-105); Magnesium 1.5 mg/dL (1.6-2.3); Potassium 4.7 mmol/L (3.4-5.0); Sodium 138 mmol/L (137-145)
[2020-05-30] MEDS: MAGNESIUM OXIDE 400 MG TABLET PO (07:44)
[2020-05-30] MEDS: PANTOPRAZOLE 40 MG TABLET PO (07:44)
[2020-05-30] MEDS: MAGNESIUM SULF 2 GM/WATER 50ML 2 GM/50 ML BAG IVPB (10:49)
[2020-05-30] MEDS: ERTAPENEM 1 GM/NS 50 ML 1 GM/50 ML BAG IVPB (11:18)
--- NOTE | 2020-05-30 13:08 | PM.DS ---
DS: Admitting Diagnosis Admitting Diagnosis Admitting Diagnosis: Intractable nausea and vomiting DS: Discharge Diagnosis Discharge Diagnosis (1) Epigastric pain: Code(s): R10.13 - Epigastric pain Status: Acute Assessment and Plan: [place] to be secondary to chronic pancreatitis ongoing since 2017, which has been worked up by her rn rehabilitation Dr. Ly, and ultimately felt to be idiopathic in nature. She is s/p cholecystectomy. Pain was variable and intermittent. CT abdomen/pelvis showed chronic pancreatitis without any acute findings. Lipase within normal limits. LFTs within normal limits. She was seen in consultation by Gastroenterology. Her diet was slowly advanced and she was able to tolerate a low-fat diet. Her pain slowly improved. She should continue a bland diet at home. She will need to follow-up with her GI doctor as an outpatient. (2) Intractable nausea and vomiting: Code(s): R11.2 - Nausea with vomiting, unspecified Status: Acute Assessment and Plan: Ongoing for 2 days prior to admission. No specific findings on CT a/p to explain symptoms but did show calcifications throughout pancreas. Nausea/vomiting likely related to her chronic pancreatitis. Gastritis considered. Intra-abdominal infection not suspected given lack of diarrhea and signs/symptoms to suggest underlying infectious etiology. She was started on Protonix which she will continue taking daily as an outpatient. Short course of antiemetics provided. Continue low-fat diet. Follow-up with rn rehabilitation as an outpatient. (3) UTI (urinary tract infection): Code(s): N39.0 - Urinary tract infection, site not specified Status: Acute Assessment and Plan: Urinalysis grossly abnormal upon presentation, however also with presence of many squamous cells. She endorsed dysuria. She remained afebrile and without leukocytosis. She does have a history of ESBL in November 2019, therefore she was started on Primaxin for ESBL coverage. Initial urine culture was contaminated. Repeat urine culture obtained after several days of IV antibiotics and was ultimately negative likely due to prior antibiotic therapy. She received a total of 5 days of antibiotic therapy and her symptoms improved. We discussed at length importance of monitoring for recurrence of urinary symptoms and obtaining a urine culture should this occur. (4) Acute kidney injury: Code(s): N17.9 - Acute kidney failure, unspecified Status: Acute Assessment and Plan: Resolved. Creatinine upon admission was elevated at 2.3. Likely prerenal secondary to dehydration due to nausea and vomiting. Creatinine improved following IV fluid rehydration. (5) Hypomagnesemia: Code(s): E83.42 - Hypomagnesemia Status: Acute Assessment and Plan: Magnesium slightly decreased, likely due to nausea and vomiting. Appears to be a chronic issue as she is on home magnesium supplementation. She is given IV magnesium supplementation to achieve adequate magnesium levels. Continue her daily p.o. magnesium oxide. (6) Dyspnea: Code(s): R06.00 - Dyspnea, unspecified Status: Acute Assessment and Plan: Resolved. She complained of shortness of breath. Faint wheezes initially noted on exam. Suspect this is related to COPD, which she states that she has never been diagnosed with. Respiratory infection not suspected. CXR negative for acute airspace disease, pulmonary edema, pleural effusion, or pneumothorax. Lungs were hyperinflated which supports COPD as most likely diagnosis. She had symptomatic improvement with albuterol nebulizers. Continue albuterol inhaler as needed at home. She will benefit from referral for PFTs as an outpatient. Smoking cessation discussed as below. (7) Tobacco abuse: Code(s): Z72.0 - Tobacco use Status: Chronic Assessment and Plan: She smokes 1 pack of cigaret
== END 2020-05-30 15:10 | disposition home health service (06) | DRG 683 ==
LOC: ANHED 15:20 → ANH3MEDSUR 16:26
PROVIDERS: Nurse Practitioner; Admitting Provider Family Medicine; Emergency Provider Emergency Medicine; PCP Family Medicine; Visit Provider Physician Assistant
DX: N17.9 Acute kidney failure, unspecified (principal); N39.0 Urinary tract infection, site not specified; K86.1 Other chronic pancreatitis; R11.2 Nausea with vomiting, unspecified; E86.0 Dehydration; Z72.0 Tobacco use; E83.42 Hypomagnesemia; K21.9 Gastro-esophageal reflux disease without esophagitis
CPT/HCPCS: 36415; 71046; 74176; 80048; 80053; 81001; 83036; 83690; 83735; 84443; 85025; 85027; 87086; 87088; 94640; 96361; 96365; 96367; 96375; 96376; 97116; 97161; 97165; 97530; 99285; A9270; C9113; G0378; J0696; J0743; J1335; J1630; J2270; J2405; J3475; J7120

== ENCOUNTER 2020-07-07 14:18 | Emergency (ER) | payer MEDICARE, MEDICAID, SELFPAY ==
[2020-07-07] VITALS (7 sets, daily range): BP systolic 189–204; BP diastolic 91–112; PULSE 88–92; RESP 18; TEMP 36.2; O2SAT 97–100
--- NOTE | ~2020-07-07 | CT_ITS ---
EXAMINATION: CT abdomen pelvis w con DATE: 07/07/2020 17:39 INDICATION: Epigastric abdominal pain, nausea and vomiting TECHNIQUE: Computed tomography (CT) of the abdomen and pelvis was performed with 100 cc Omnipaque 350 intravenous contrast. Automated exposure control and iterative reconstruction technique were employe d. Exam dose: 275.96 mGy-cm total exam DLP. COMPARISON: 05/26/2020 CT abdomen pelvis FINDINGS: 5.5 mm right lower lobe pulmonary nodule. Normal heart size. Coronary artery calcification. No pericardial or pleural effusion. Very small sliding hiatal hernia. Status post cholecystectomy. No hepatic space-occupying mass lesion is evident. There are extensive pancreatic calcifications consistent with chronic pancreatitis. Calcified splenic granulomas. The spleen measures approximately 11.1 cm vertical dimension, within no rmal range. Normal morphology of the adrenal glands. 7.5 mm upper pole right renal cyst. 8.2 mm lower pole right renal cyst. 4 mm upper pole left renal cyst. No suspicious solid renal space-occupying mass lesion. No urinary tract calculus or hydroureteronephrosis. The urinary bladder is unremarkable. There are fluid distended segments of ileum without bowel wall thickening or apparent obstruction. Th e findings suggest enteritis or mild adynamic ileus. The appendix is not definitively localized. There are some fluid-containing structures in the cecal a ollie which are most likely fluid containing bowel, but appendicitis is not definitively excluded. Juancarlos mmend clinical correlation for history of appendectomy or for clinical signs of appendicitis. No bowel obstruction or intraperitoneal free air. Diffuse osteopenia. Bilateral spinal rods and pedicle screws extending from L2 upward into the thoracic area. Moderate anterior wedge compression fracture deformity of T11. Severe burst fracture deformity of T12 . Moderate anterior wedge compression fracture deformities of L3 and L4. Degenerative changes of the thoracic spine and multilevel degenerative disc disease of the lumbar/lum bosacral spine. Subacute healing fracture deformity of the left inferior pubic ramus/ischium. Compression screw and nail in the proximal right femur. IMPRESSION: Nondilated fluid containing segments of ileum suggesting enteritis or mild adynamic ileu s There are fluid-containing bowel structures in the region of the cecum; appendicitis is not definitiv olayinka excluded. Clinical correlation is advised. Chronic pancreatitis Status post cholecystectomy Bilateral small renal cysts 5.5 mm right lower lobe pulmonary nodule Reviewed, dictated and finalized at [facility]. Reviewed, dictated and finalized at [facility]. IMPRESSION: Nondilated fluid containing segments of ileum suggesting enteritis or mild adynamic ileus There are fluid-containing bowel structures in the region of the cecum; appendi citis is not definitively excluded. Clinical correlation is advised. Chronic pancreatitis Status post cholecystectomy Bilateral small renal cysts 5.5 mm right lower lobe pulmonary nodule
[2020-07-07 15:27] LABS: Basophils Percent Auto 0.4 % (0.2-1.2); Eosinophils Percent Auto 0.4 % (0-4.4); Hematocrit 47.7 % (37.0-47.0); Hemoglobin 15.1 g/dL (12.0-15.0); Immature Granulocyte Absolute 0.01 K/mm3 (0.00-0.031); Immature Granulocyte Percent A 0.1 % (0-0.5); Lymphocytes Absolute Auto 0.76 K/mm3 (0.9-3.2); Lymphocytes Percent Auto 10.9 % (18.3-44.2); Mean Corpuscular HGB Conc 31.7 g/dl (32-36); Mean Corpuscular Hemoglobin 29.5 pg (26-34); Mean Corpuscular Volume 93.3 fl (80-100); Monocytes Absolute Auto 0.3 K/mm3 (0.1-0.6); Monocytes Percent Auto 3.7 % (2.6-8.5); Neutrophils Absolute Auto 5.9 K/mm3 (1.3-6.7); Neutrophils Percent Auto 84.5 % (45.5-73.1); Platelet Count Result 215 k/mm3 (150-375); Red Blood Count 5.11 M/mm3 (4.2-5.4)
[2020-07-07 15:37] LABS: Alanine Aminotransferase 12 U/L (4-35); Albumin Level 4.9 g/dL (3.5-5.1); Alkaline Phosphatase 109 U/L (38-126); Anion Gap 5 mmol/L (8-16); Aspartate Amino Transferase 30 U/L (14-36); Bilirubin,Total 0.3 mg/dL (0.2-1.3); Blood Urea Nitrogen 12 mg/dL (7-17); Carbon Dioxide 33 mmol/L (22-30); Chloride 102 mmol/L (98-107); Estimated CRCL calculation 53 ml/min; Estimated Glomerular Filt Rate > 60; Glucose 147 mg/dL (65-105); Lipase 48 U/L (23-300); Sodium 140 mmol/L (137-145)
[2020-07-07 17:02] LABS: Add Urine Microscopic? YES; Appearance Urine Clear (Clear); Bilirubin Urine Negative (Negative); Blood Urine Negative (Negative); Color Urine Yellow (Yellow); Glucose Urine UA Negative (Negative); Ketones Urine Negative (Negative); Leukocyte Esterase Ur Negative LEU/UL (Negative); Mucus Urine Rare /lpf; Nitrate Urine Negative (Negative); Protein Urine 1+ mg/dL (Negative); RBC Urine 0-2 /hpf (0-2); Specific Grav Ur 1.012 (1.001-1.035); Squamous Epithelial Cell Urine Few /hpf (Few); Urobilinogen Urine Negative mg/dL (<2.0); WBC Urine 0-3 /hpf
--- NOTE | 2020-07-07 17:08 | ED.GENADULT ---
HPI - General Adult General Chief complaint: Abdominal Pain Stated complaint: abdominal pain Time Seen by Provider: 07/07/20 16:18 History of Present Illness HPI narrative: Patient is a 64-year-old female who presents to the ER with upper abdominal pain. Sharp pain in the left lower quadrant. No radiation. Feels similar to when she was hospitalized a week ago for pyelonephritis. Denies fevers or chills or sweats. She does report that she is having persistent nausea and vomiting since last night. She has no medications to help with this at home. No known sick contacts. Related Data Home Medications Medication Instructions Recorded Confirmed amitriptyline 125 mg PO HS 04/15/20 05/26/20 Allergies Allergy/AdvReac Type Severity Reaction Status Date / Time aspirin Allergy Unknown Unknown Verified 07/07/20 15:13 codeine Allergy Unknown Rash,Unknow Verified 07/07/20 15:13 n Penicillins Allergy Unknown Unknown Verified 07/07/20 15:13 Sulfa (Sulfonamide Allergy Unknown Unknown Verified 07/07/20 15:13 Antibiotics) acetaminophen [From Tylenol] Allergy Hives Verified 05/29/20 10:47 Review of Systems Review of Systems: All systems reviewed & are unremarkable except as noted in HPI and below Constitutional: Constitutional: Denies chills, Denies fever(s) and Denies weakness Cardiovascular: Cardiovascular: Denies chest pain, Denies rapid heart rate and Denies radiating jaw, neck or arm pain Gastrointestinal: Gastrointestinal: Reports abdominal pain, Denies bloating, Denies diarrhea, Reports nausea and Reports vomiting Genitourinary: Genitourinary: Denies nocturia, Denies dysuria and Reports flank pain (Right) [facility] Past Medical History Medical History (Updated 07/07/20 @ 18:56 by Raymond Hernandez MD) GERD (gastroesophageal reflux disease) Nausea Pancreatitis 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 Her son Sonny is the durable [employer] real estate associate attorney for healthcare. Patient is a full code. The patient continues to smoke 1 pack a cigarettes in a week. She does occasionally use marijuana no other illicit drugs. She denies any alcohol she stated the last time she drink any alcohol was September of last year when she was at a barbecue. Smoking packs per day: 0.25 Smoking cigarettes per day: 5.0 Years smoked: 20 Smoking pack-years: 5.00 Smoking status: Current every day smoker Tobacco type: cigarettes Second hand tobacco smoke exposure: No Alcohol intake: never Substance use: never Substance use type: marijuana Other substance usage details: a few weeks ago when she was nauseous she tried her son's. Gender identity (if verbalized by the patient): Female Spiritual care concerns: No Agree to blood products: Yes Exam Narrative: Exam Narrative: GENERAL: Uncomfortable-appearing, well-nourished, and in no acute distress. HEAD: Normocephalic, atraumatic. ENT: Mucous membranes moist. CHEST: Clear to auscultation. No respiratory distress. HEART: Regular rate and rhythm. Normal peripheral pulses. ABDOMEN: Soft, tender palpation left upper quadrant with guarding, nondistended, normal active bowel sounds. Right CVA tenderness. EXTREMITIES: Normal range of motion. No edema. SKIN: Warm, dry, no rash. NEURO: Alert and oriented x3. PSYCH: Normal mood and af
[2020-07-07] MEDS: ONDANSETRON INJ 4 MG/2 ML VIAL IV PUSH (17:22)
[2020-07-07] MEDS: MORPHINE SULFATE (*CRX) 4 MG/ML INJ IV PUSH (17:23)
--- NOTE | 2020-07-07 17:27 | PC.NURSE ---
Pt having emesis in trash can. Meds given IVP as ordered.
[2020-07-07] MEDS: DICYCLOMINE HCL INJ 20 MG/2 ML VIAL IM (18:38)
== END 2020-07-07 19:34 | disposition home or self-care (01) ==
PROVIDERS: Emergency Medicine; Emergency Provider Emergency Medicine; PCP Family Medicine
DX: K52.9 Noninfective gastroenteritis and colitis, unspecified (principal); K21.9 Gastro-esophageal reflux disease without esophagitis; F17.210 Nicotine dependence, cigarettes, uncomplicated; K86.1 Other chronic pancreatitis; N28.1 Cyst of kidney, acquired; R91.1 Solitary pulmonary nodule
CPT/HCPCS: 36415; 74177; 80053; 81001; 83690; 85025; 96372; 96374; 96375; 99284; J0500; J2270; J2405; Q9967

== ENCOUNTER 2020-07-13 13:40 | Inpatient (IN) | payer MEDICARE, MEDICAID, SELFPAY ==
[2020-07-13] VITALS (10 sets, daily range): BP systolic 126–220; BP diastolic 96–131; PULSE 82–113; RESP 10–17; TEMP 35.9–36.6; O2SAT 90–100
--- NOTE | ~2020-07-13 | CT_ITS ---
EXAMINATION: CTA chest abdomen pelvis EXAM DATE: 07/13/2020 17:05 INDICATION: Chest and abdominal pain. TECHNIQUE: Spiral CT of the chest, abdomen and pelvis was performed following intravenous injection o f 100 mL Omnipaque 350. Axial, coronal and sagittal images chest, abdomen and pelvis were reviewed. Coronal maximum intensity pixel images of chest reviewed. Maximum intensity projection 3-D reconstru ctions of the aorta were created by the technologist on dedicated workstation. The dose-length produ ct (DLP) for this examination was 410.77 mGy-cm. The exposure was tailored according to patient size (auto mA exposure control), and iterative reconstruction (ASIR) was used as additional dose reductio n technique. Comparison is made to prior examination from 07/07/2020. FINDINGS: ARTERIES: Mild aortic root dilation, up to 4.0 cm. Otherwise the aorta is normal in caliber. There is mild to moderate scattered abdominal aortic arteriosclerotic disease. Celiac artery and inferior mes enteric arteries widely patent. Mild stenosis of the SMA about 7 cm from its origin. Mild to moderate stenosis of the right renal artery just beyond the origin. Tortuosity of the iliac arteries. CHEST: Severe edema of the mid and distal esophagus, most likely esophagitis. Esophageal cancer is ty pically more focal. There is a 3 mm right lower lobe noncalcified granuloma. Mild emphysema and moder ate hyperinflation. There are no pleural or pericardial effusions. Tracheobronchial tree is patent . There is no mediastinal, hilar or axillary lymphadenopathy. There is no pneumothorax. Heart n ormal in size. There is mild to moderate coronary arterial calcification, arterial sclerosis. ABDOMEN PELVIS: Extensive pancreatic calcifications, chronic pancreatitis. Spleen, liver and adrenal glands are unremarkable. There are cholecystectomy clips. Small splenule contiguous to the right kid brenna anterior midpole. Portal and splenic veins are patent. Kidneys enhance symmetrically. There is no hydronephrosis. The uterus is not identified and has likely been surgically resected. The blad guy is unremarkable. There is no retroperitoneal or pelvic lymphadenopathy. The appendix is not positively visualized. There is no pericecal inflammatory change to suggest appe ndicitis. The stomach and small bowel are unremarkable. There is expected amount of colonic stool. No free intraperitoneal gas. Chronic T12 burst fracture with posterior fusion from T10 through L 2. Other mild lumbar compression fractures. There are no osteoblastic or osteolytic lesions identifie d. There is right hip gamma nail. IMPRESSION: 1. Severe mid and distal esophageal edema most likely esophagitis, clinical correlation. 2. Mildly aneurysmal aortic root at 4 cm. No dissection. Scattered arterial sclerosis. 3. Chronic pancreatitis. 4. Hyperinflation and emphysema. Reviewed, dictated and finalized at [facility]. IMPRESSION: 1. Severe mid and distal esophageal edema most likely esophagitis, clinical co rrelation. 2. Mildly aneurysmal aortic root at 4 cm. No dissection. Scattered arterial sc lerosis. 3. Chronic pancreatitis. 4. Hyperinflation and emphysema.
--- NOTE | 2020-07-13 13:53 | ED.NAVMDI ---
HPI - Nausea/Vomiting/Diarrhea General Chief complaint: Nausea/Vomiting/Diarrhea Stated complaint: N/V/D Time Seen by Provider: 07/13/20 13:53 History of Present Illness HPI Narrative: 64 yo female presents to the ED for nausea, vomitng, and abdominal apin. She reports that she has had severe epigastric pain radiating into her chest since yesterday. Feels like burning. Associated with vomiting. She reports that she has had prior episodes and no one has ever figured it out. On review of the chart she has been diagnosed with chronic idiopathic pancreatitis. Related Data Home Medications Medication Instructions Recorded Confirmed amitriptyline 125 mg PO HS 04/15/20 05/26/20 Allergies Allergy/AdvReac Type Severity Reaction Status Date / Time aspirin Allergy Unknown Unknown Verified 07/13/20 13:43 codeine Allergy Unknown Rash,Unknow Verified 07/13/20 13:43 n Penicillins Allergy Unknown Unknown Verified 07/13/20 13:43 Sulfa (Sulfonamide Allergy Unknown Unknown Verified 07/13/20 13:43 Antibiotics) acetaminophen [From Tylenol] Allergy Hives Verified 07/13/20 13:43 Review of Systems Review of Systems: All systems reviewed & are unremarkable except as noted in HPI and below Constitutional: Constitutional: Denies chills and Denies fever(s) ENT: Reports system reviewed and no additional complaints, except as documented Cardiovascular: Cardiovascular: Reports chest pain Respiratory: Respiratory: Denies dyspnea Gastrointestinal: Gastrointestinal: Reports as per HPI Musculoskeletal: Musculoskeletal: Denies back pain Neurologic: Reports system reviewed and no additional complaints, except as documented [facility] Past Medical History Medical History GERD (gastroesophageal reflux disease) Nausea Pancreatitis 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 Her son Sonny is the durable [employer] criminal defense attorney for healthcare. Patient is a full code. The patient continues to smoke 1 pack a cigarettes in a week. She does occasionally use marijuana no other illicit drugs. She denies any alcohol she stated the last time she drink any alcohol was September of last year when she was at a barbecue. Smoking packs per day: 0.25 Smoking cigarettes per day: 5.0 Years smoked: 20 Smoking pack-years: 5.00 Smoking status: Current every day smoker Tobacco type: cigarettes Second hand tobacco smoke exposure: No Alcohol intake: never Substance use: never Substance use type: marijuana Other substance usage details: a few weeks ago when she was nauseous she tried her son's. Gender identity (if verbalized by the patient): Female Spiritual care concerns: No Agree to blood products: Yes Exam Const: General: no acute distress and alert Orientation/consciousness: patient oriented x3 HENMT: Mouth: Yes dry mucous membranes Neck: Neck: normal visual inspection Chest: Chest palpation & inspection: no tenderness Resp: Effort & Inspection: normal respiratory effort Auscultation: clear to auscultation bilaterally Cardio: Rate: tachycardic Rhythm: regular rhythm GI: Inspection: non-distended GI Palp: Yes Tenderness to palpation present (GI) (diffuse), Yes Guarding due to palpation present (GI) and No Rebound tendern
[2020-07-13 13:57] LABS: Basophils Percent Auto 0.4 % (0.2-1.2); Eosinophils Absolute Auto 0.1 K/mm3 (0-0.3); Eosinophils Percent Auto 1.4 % (0-4.4); Hematocrit 45.9 % (37.0-47.0); Hemoglobin 14.8 g/dL (12.0-15.0); Immature Granulocyte Absolute 0.02 K/mm3 (0.00-0.031); Immature Granulocyte Percent A 0.3 % (0-0.5); Lymphocytes Absolute Auto 1.48 K/mm3 (0.9-3.2); Lymphocytes Percent Auto 20.3 % (18.3-44.2); Mean Corpuscular HGB Conc 32.2 g/dl (32-36); Mean Corpuscular Hemoglobin 29.3 pg (26-34); Mean Corpuscular Volume 90.9 fl (80-100); Mean Platelet Volume 9.3 fl (7.4-10.4); Monocytes Absolute Auto 0.4 K/mm3 (0.1-0.6); Monocytes Percent Auto 5.8 % (2.6-8.5); Neutrophils Absolute Auto 5.3 K/mm3 (1.3-6.7); Neutrophils Percent Auto 71.8 % (45.5-73.1); Platelet Count Result 273 k/mm3 (150-375); Red Blood Count 5.05 M/mm3 (4.2-5.4); Red Cell Distribution Width 14.8 % (11.5-14.5); White Blood Count 7.3 K/mm3 (4.5-10.0)
[2020-07-13] MEDS: LIDOCAINE HCL 2% VISC SOLN 15 ML UDC PO (14:52)
[2020-07-13] MEDS: SODIUM CHLORIDE 0.9% IV 1,000 ML 999 ML IV CONT (14:52)
[2020-07-13] MEDS: fentaNYL CITRATE INJ (*CRX) 100 MCG/2 ML VIAL 50 MCG IV PUSH (14:52)
[2020-07-13 16:11] LABS: Alanine Aminotransferase 8 U/L (4-35); Albumin Level 4.8 g/dL (3.5-5.1); Alkaline Phosphatase 109 U/L (38-126); Anion Gap 10 mmol/L (8-16); Aspartate Amino Transferase 19 U/L (14-36); Bilirubin,Total 0.4 mg/dL (0.2-1.3); Blood Urea Nitrogen 19 mg/dL (7-17); Calcium 9.7 mg/dL (8.4-10.2); Carbon Dioxide 30 mmol/L (22-30); Chloride 99 mmol/L (98-107); Estimated CRCL calculation 49 ml/min; Estimated Glomerular Filt Rate > 60; Glucose 131 mg/dL (65-105); Lipase 30 U/L (23-300); Potassium 3.6 mmol/L (3.4-5.0); Sodium 139 mmol/L (137-145)
[2020-07-13] MEDS: ONDANSETRON INJ 4 MG/2 ML VIAL IV PUSH ×2 (16:25→22:46)
[2020-07-13] MEDS: LABETALOL HCL INJ 100 MG/20 ML VIAL 20 MG IV PUSH ×2 (16:29→17:18)
--- NOTE | 2020-07-13 16:29 | PC.NURSE ---
patient attempted to give urine sample at this time, unable to give sample. patient declines straight cath
[2020-07-13] MEDS: PANTOPRAZOLE SODIUM IV 40 MG VIAL IV PUSH (17:32)
[2020-07-13 17:49] LABS: Add Urine Microscopic? YES; Appearance Urine Clear (Clear); Bilirubin Urine Negative (Negative); Blood Urine Negative (Negative); Color Urine Straw (Yellow); Glucose Urine UA Negative (Negative); Ketones Urine Trace mg/dL (Negative); Leukocyte Esterase Ur Negative LEU/UL (Negative); Mucus Urine Rare /lpf; Nitrate Urine Negative (Negative); Protein Urine 1+ mg/dL (Negative); Specific Grav Ur 1.028 (1.001-1.035); Squamous Epithelial Cell Urine Rare /hpf (Few); Urobilinogen Urine Negative mg/dL (<2.0); WBC Urine 0-3 /hpf
[2020-07-13] MEDS: HYDROmorphone HCL INJ (*CRX) 1 MG/ML SYR IV PUSH ×2 (19:55→22:01)
--- NOTE | 2020-07-13 20:11 | PC.NURSE ---
Patient's O2 ranging from 88%-93% on room air after Dilaudid administration. Patient placed on 2L O2 via nasal cannula.
--- NOTE | 2020-07-13 20:33 | PC.NURSE ---
This patient, Heather Carpio, was admitted to IMU Room 206-01. Patient/family oriented to hospital policies and general routines including ID bracelet, bed and alarms, visiting hours, pain management, procedures, bathroom and other care routines, personal items, smoking policy, room service/diet, and visiting hours. Information on how to activate the Rapid Response Team has been discussed. Patient/Family are encouraged to report perceived risks to care and to ask questions if they do not understand what they are told or what they should do.
[2020-07-13 21:46] LABS: Troponin I < 0.012 ng/mL (0.000-0.034)
[2020-07-13] MEDS: AMITRIPTYLINE HCL 25 MG TABLET 100 MG PO (21:59)
[2020-07-13] MEDS: SIMETHICONE 125 MG CHEW TAB PO (21:59)
[2020-07-13] MEDS: DICYCLOMINE HCL 10 MG CAPSULE 20 MG PO (21:59)
--- NOTE | 2020-07-13 22:36 | PC.NURSE ---
This patient, Heather Carpio, was transferred to [260 ] on 07/13/20 at 2236. Personal belongings sent with patient. Report given to [Sergio ]. Appropriate documentation sent with patient.
--- NOTE | 2020-07-13 22:47 | PC.NURSE ---
This patient, Heather Carpio, was admitted to 2 Medical Room 260-. Patient/family oriented to hospital policies and general routines including ID bracelet, bed and alarms, visiting hours, pain management, procedures, bathroom and other care routines, personal items, smoking policy, room service/diet, and visiting hours. Information on how to activate the Rapid Response Team has been discussed. Patient/Family are encouraged to report perceived risks to care and to ask questions if they do not understand what they are told or what they should do. Pt admitted in IMU and transferred to 260 at 2240, pt oriented to room. Pt c/o nausea and Zofran given.
[2020-07-14] VITALS (8 sets, daily range): BP systolic 96–110; BP diastolic 56–71; PULSE 68–86; RESP 16–20; TEMP 36.3–36.9; O2SAT 90–98
[2020-07-14 00:11] LABS: Troponin I < 0.012 ng/mL (0.000-0.034)
[2020-07-14] MEDS: HYDROmorphone HCL INJ (*CRX) 1 MG/ML SYR IV PUSH ×7 (01:02→23:57)
--- NOTE | 2020-07-14 01:06 | PM.IMHP ---
H&P: HPI History of Present Illness Date/Time: 07/14/20 01:06 Chief Complaint: Epigastric pain. Narrative: This is a 69-year-old female with past medical history significant for head trauma, seizure, chronic epigastric abdominal pain, chronic pancreatitis, tobacco dependence. Patient presented to the emergency room due to worsening epigastric pain patient is burning in quality radiates to the back started over the weekend and has not relent patient has not been able to eat or drink has had nausea and vomiting no chills no fevers no rigors no cough no sputum production patient smokes 2 cigarettes every day with her cough in the morning, she is has had extensive GI workup in the she was supposed to see someone at [facility] for this. Patient received Dilaudid in the emergency room and did is relieved her pain. She was also found to be hypertensive in emergency room. Preliminary workup was significant for a CT of abdomen and pelvis that re demonstrated chronic pancreatitis, distal esophageal edema, emphysema. Review of Systems Review of Systems: Narrative: Patient presented to the emergency room due to worsening epigastric abdominal pain nausea and vomiting for 3 days or so Constitutional: Constitutional: Denies chills, Denies fever(s) and Denies malaise Eyes: Eyes: Denies change in vision ENT: Denies nasal congestion, Denies nasal discharge, Denies nasal obstruction, Denies odynophagia and Denies sore throat Cardiovascular: Cardiovascular: Denies chest pain, Denies lightheadedness, Denies palpitations and Denies dyspnea Respiratory: Respiratory: Denies cough, Denies dyspnea and Denies wheezing Gastrointestinal: Gastrointestinal: Reports abdominal pain, Reports nausea and Reports vomiting Genitourinary: Genitourinary: Denies dysuria Musculoskeletal: Musculoskeletal: Denies back pain, Denies arthralgias and Denies joint swelling Integumentary/Breasts: Skin/Breast: Denies rash Neurologic: Denies focal weakness and Denies Sensory deficit (Neuro) Psychiatric: Psychiatric: Reports anxiety Endocrine: Endocrine: Denies no additional endocrine complaints Hematologic/Lymphatic: Hematologic/Lymphatic: Denies no additional hematologic/lymphatic complaints Allergic/Immunologic: Allergic/Immunologic: Denies no additional allergic/immunologic complaints [facility] Past Medical History Medical History GERD (gastroesophageal reflux disease) Nausea Pancreatitis 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 Her son Sonny is the [employer] director for healthcare. Patient is a full code. The patient continues to smoke 1 pack a cigarettes in a week. She does occasionally use marijuana no other illicit drugs. She denies any alcohol she stated the last time she drink any alcohol was September of last year when she was at a barbecue. Smoking packs per day: 0.3 Smoking cigarettes per day: 6.0 Years smoked: 20 Smoking pack-years: 6.00 Smoking status: Current every day smoker Tobacco type: cigarettes Second hand tobacco smoke exposure: No Alcohol intake: former Substance use: never Substance use type: marijuana Other substance usage details: a few weeks ago when she was nauseous she tried her son's. Gender identity (if
[2020-07-14] MEDS: ONDANSETRON INJ 4 MG/2 ML VIAL IV PUSH ×3 (03:24→12:26)
[2020-07-14] MEDS: DICYCLOMINE HCL 10 MG CAPSULE 20 MG PO ×4 (07:35→20:11)
[2020-07-14] MEDS: PANTOPRAZOLE 40 MG TABLET PO (07:35)
[2020-07-14] MEDS: MAGNESIUM OXIDE 400 MG TABLET PO (07:36)
[2020-07-14] MEDS: SIMETHICONE 125 MG CHEW TAB PO ×4 (07:36→20:10)
[2020-07-14 11:16] LABS: Magnesium 1.4 mg/dL (1.6-2.3)
[2020-07-14] MEDS: MAGNESIUM SULF 2 GM/WATER 50ML 2 GM/50 ML BAG IVPB (14:24)
--- NOTE | 2020-07-14 14:36 | PM.IMPN ---
Progress Note: A&P Assessment and Plan (1) Epigastric abdominal pain: Code(s): R10.13 - Epigastric pain Status: Acute Assessment and Plan: Clear liquids GI cocktail p.r.n. PPI Supportive care 07/14/20 14:36 This is a 69-year-old female with past medical history significant for head trauma, seizure, chronic epigastric abdominal pain, chronic pancreatitis, tobacco dependence. Patient presented to the emergency room due to worsening epigastric pain patient is burning in quality radiates to the back started over the weekend and has not relent patient has not been able to eat or drink has had nausea and vomiting no chills no fevers no rigors no cough no sputum production patient smokes 2 cigarettes every day with her cough in the morning, she is has had extensive GI workup in the she was supposed to see someone at [facility] for this. Patient received Dilaudid in the emergency room and did is relieved her pain. She was also found to be hypertensive in emergency room. Preliminary workup was significant for a CT of abdomen and pelvis that re demonstrated chronic pancreatitis, distal esophageal edema, emphysema. 07/14 patient is 69-year-old female with history of chronic pancreatitis presented to emergency depart with complaint epigastric pain patient lipase is normal, patient describes the pain epigastric sharp and radiating to back, however patient also complains of low back pain, CT scan of the abdomen showed Severe mid and distal esophageal edema most likely esophagitis, clinical correlation. Patient on PPI 40 mg q.day will escalate to 40 mg b.i.d., Patient recently was seen by GI and had a EGD which was normal, patient is tolerating clear liquid and wants to eat more, will advance to full liquid, will apply Lidoderm patches to the back, will advance the diet as tolerated, will minimize IV pain medication, as patient has a drug-seeking behavior will continue to monitor (2) Esophagitis: Code(s): K20.90 - Esophagitis, unspecified without bleeding Status: Acute Assessment and Plan: Likely secondary to nausea and vomiting PPI (3) Intractable nausea and vomiting: Code(s): R11.2 - Nausea with vomiting, unspecified Status: Acute Assessment and Plan: Clear liquids advanced as tolerated Supportive care (4) Dehydration: Code(s): E86.0 - Dehydration Status: Acute Assessment and Plan: LR was stopped to patient's hypertension Push oral fluids (5) Chronic pancreatitis: Code(s): K86.1 - Other chronic pancreatitis Status: Acute Assessment and Plan: Unchanged according to new CT of abdomen and pelvis (6) GERD (gastroesophageal reflux disease): Code(s): K21.9 - Gastro-esophageal reflux disease without esophagitis Status: Acute Assessment and Plan: PPI (7) Tobacco abuse: Code(s): Z72.0 - Tobacco use Status: Chronic Assessment and Plan: Nicotine patch as needed (8) Hypertensive urgency: Code(s): I16.0 - Hypertensive urgency Status: Acute Assessment and Plan: Resolved after patient had relieve with Dilaudid from her pain. Restart home med Subjective Date/time seen: 07/14/20 14:36 This is a 69-year-old female with past medical history significant for head trauma, seizure, chronic epigastric abdominal pain, chronic pancreatitis, tobacco dependence. Patient presented to the emergency room due to worsening epigastric pain patient is burning in quality radiates to the back started over the weekend and has not relent patient has not been able to eat or drink has had nausea and vomiting no chills no fevers no rigors no cough no sputum production patient smokes 2 cigarettes every day with her cough in the morning, she is has had extensive GI workup in the she was supposed to see someone at [facility] for this. Patient received Dilaudid in the emergency room and did is relieved her pain. She w
[2020-07-14 19:34] LABS: Alanine Aminotransferase 7 U/L (4-35); Albumin Level 3.9 g/dL (3.5-5.1); Alkaline Phosphatase 70 U/L (38-126); Anion Gap 8 mmol/L (8-16); Aspartate Amino Transferase 21 U/L (14-36); Bilirubin,Total 0.2 mg/dL (0.2-1.3); Blood Urea Nitrogen 14 mg/dL (7-17); Calcium 9.1 mg/dL (8.4-10.2); Carbon Dioxide 27 mmol/L (22-30); Chloride 97 mmol/L (98-107); Estimated CRCL calculation 56 ml/min; Estimated Glomerular Filt Rate > 60; Glucose 96 mg/dL (65-105); Potassium 3.3 mmol/L (3.4-5.0); Sodium 132 mmol/L (137-145)
[2020-07-14] MEDS: AMITRIPTYLINE HCL 25 MG TABLET 100 MG PO (20:10)
[2020-07-14] MEDS: PANTOPRAZOLE SODIUM IV 40 MG VIAL IV PUSH (20:12)
[2020-07-15] MEDS: HYDROmorphone HCL INJ (*CRX) 1 MG/ML SYR IV PUSH ×2 (05:11→08:51)
[2020-07-15 05:42] LABS: Hematocrit 37.4 % (37.0-47.0); Hemoglobin 12.2 g/dL (12.0-15.0); Mean Corpuscular HGB Conc 32.6 g/dl (32-36); Mean Corpuscular Hemoglobin 29.8 pg (26-34); Mean Corpuscular Volume 91.2 fl (80-100); Mean Platelet Volume 8.9 fl (7.4-10.4); Platelet Count Result 183 k/mm3 (150-375); Red Cell Distribution Width 14.5 % (11.5-14.5); White Blood Count 5.2 K/mm3 (4.5-10.0)
[2020-07-15 05:47] LABS: Alanine Aminotransferase 6 U/L (4-35); Albumin Level 3.8 g/dL (3.5-5.1); Alkaline Phosphatase 75 U/L (38-126); Anion Gap 2 mmol/L (8-16); Aspartate Amino Transferase 21 U/L (14-36); Bilirubin,Total 0.3 mg/dL (0.2-1.3); Blood Urea Nitrogen 9 mg/dL (7-17); Carbon Dioxide 33 mmol/L (22-30); Chloride 99 mmol/L (98-107); Estimated CRCL calculation 56 ml/min; Estimated Glomerular Filt Rate > 60; Glucose 99 mg/dL (65-105); Magnesium 1.8 mg/dL (1.6-2.3); Potassium 3.8 mmol/L (3.4-5.0); Sodium 134 mmol/L (137-145)
[2020-07-15 06:00] VITALS: BP 121/69; PULSE 76; RESP 18; TEMP 36.1; O2SAT 96
[2020-07-15] MEDS: DICYCLOMINE HCL 10 MG CAPSULE 20 MG PO ×4 (07:47→20:11)
[2020-07-15] MEDS: MAGNESIUM OXIDE 400 MG TABLET PO (07:48)
[2020-07-15] MEDS: PANTOPRAZOLE SODIUM IV 40 MG VIAL IV PUSH ×2 (07:49→20:11)
[2020-07-15] MEDS: SIMETHICONE 125 MG CHEW TAB PO ×3 (07:50→20:11)
[2020-07-15] MEDS: ONDANSETRON INJ 4 MG/2 ML VIAL IV PUSH (07:51)
[2020-07-15 10:00] VITALS: BP 99/66; PULSE 92; RESP 16; TEMP 37; O2SAT 93
--- NOTE | 2020-07-15 11:03 | PM.IMPN ---
Progress Note: A&P Assessment and Plan (1) Epigastric abdominal pain: Code(s): R10.13 - Epigastric pain Status: Acute (2) Esophagitis: Code(s): K20.90 - Esophagitis, unspecified without bleeding Status: Acute (3) Intractable nausea and vomiting: Code(s): R11.2 - Nausea with vomiting, unspecified Status: Acute Assessment and Plan: resolved (4) Dehydration: Code(s): E86.0 - Dehydration Status: Acute (5) Chronic pancreatitis: Code(s): K86.1 - Other chronic pancreatitis Status: Acute (6) GERD (gastroesophageal reflux disease): Code(s): K21.9 - Gastro-esophageal reflux disease without esophagitis Status: Acute (7) Tobacco abuse: Code(s): Z72.0 - Tobacco use Status: Chronic (8) Hypertensive urgency: Code(s): I16.0 - Hypertensive urgency Status: Acute Additional Plan Clear liquids GI cocktail p.r.n. PPI Supportive care 07/14/20 14:36 This is a 69-year-old female with past medical history significant for head trauma, seizure, chronic epigastric abdominal pain, chronic pancreatitis, tobacco dependence. Patient presented to the emergency room due to worsening epigastric pain patient is burning in quality radiates to the back started over the weekend and has not relent patient has not been able to eat or drink has had nausea and vomiting no chills no fevers no rigors no cough no sputum production patient smokes 2 cigarettes every day with her cough in the morning, she is has had extensive GI workup in the she was supposed to see someone at [facility] for this. Patient received Dilaudid in the emergency room and did is relieved her pain. She was also found to be hypertensive in emergency room. Preliminary workup was significant for a CT of abdomen and pelvis that re demonstrated chronic pancreatitis, distal esophageal edema, emphysema. 07/14 patient is 69-year-old female with history of chronic pancreatitis presented to emergency depart with complaint epigastric pain patient lipase is normal, patient describes the pain epigastric sharp and radiating to back, however patient also complains of low back pain, CT scan of the abdomen showed Severe mid and distal esophageal edema most likely esophagitis, clinical correlation. Patient on PPI 40 mg q.day will escalate to 40 mg b.i.d., Patient recently was seen by GI and had a EGD which was normal, patient is tolerating clear liquid and wants to eat more, will advance to full liquid, will apply Lidoderm patches to the back, will advance the diet as tolerated, will minimize IV pain medication, as patient has a drug-seeking behavior will continue to monitor 07/15/20 Discontinue Dilaudid IV, start oxycodone 5 mg q.6 hours p.r.n., advanced to clear liquid diet to GI bland low-fiber, literature provided to patient with appropriate dietary recommendations, continue PPI, add Carafate, add viscous lidocaine. Patient counseled on avoiding irritative foods and beverages. Patient counseled on smoking cessation > 3min and importance of this to improve her epigastric pain and his reflux symptoms. anticipate dc tomorrow Subjective Date/time seen: 07/15/20 11:03 Long discussion with the patient this morning regarding esophagitis seen on imaging. We discussed her use of pain medications and she states that she had a traumatic injury involving fractures to multiple parts of her body neck back arm and right leg. She is not currently under the care of a pain management physician. She did see a pain management physician but was not prescribed any narcotics. Patient advise esophagitis is not treated with narcotic medication and that I do not manage chronic pain. We agreed to try diet modification, high-dose PPI, Carafate, viscous lidocaine, and bland diet. I agree to give her a few narcotic pain medication pills at discharge until she is able to follow-up with her primary to discuss her chronic pain management.
[2020-07-15] MEDS: oxyCODONE HCL (*CRX) 5 MG TAB IR PO ×3 (12:50→21:04)
[2020-07-15] MEDS: SUCRALFATE 1 GM TABLET PO ×3 (12:50→20:11)
[2020-07-15 14:00] VITALS: BP 102/70; PULSE 80; RESP 18; TEMP 36.9; O2SAT 94
[2020-07-15 18:00] VITALS: BP 102/70; PULSE 80; RESP 18; TEMP 36.9; O2SAT 94
[2020-07-15 20:00] VITALS: PULSE 80; RESP 18; O2SAT 94
[2020-07-15] MEDS: AMITRIPTYLINE HCL 25 MG TABLET 100 MG PO (20:10)
[2020-07-15 22:00] VITALS: BP 129/74; PULSE 67; RESP 20; TEMP 36.6; O2SAT 98
[2020-07-16 02:00] VITALS: BP 100/60; PULSE 72; RESP 18; TEMP 37; O2SAT 96
[2020-07-16 05:42] LABS: Hematocrit 35.2 % (37.0-47.0); Hemoglobin 11.2 g/dL (12.0-15.0); Mean Corpuscular HGB Conc 31.8 g/dl (32-36); Mean Corpuscular Hemoglobin 29.7 pg (26-34); Mean Corpuscular Volume 93.4 fl (80-100); Mean Platelet Volume 9.5 fl (7.4-10.4); Platelet Count Result 146 k/mm3 (150-375); Red Blood Count 3.77 M/mm3 (4.2-5.4); Red Cell Distribution Width 14.4 % (11.5-14.5); White Blood Count 4.7 K/mm3 (4.5-10.0)
[2020-07-16 06:00] VITALS: BP 103/78; PULSE 73; RESP 18; TEMP 36.1; O2SAT 96
[2020-07-16] MEDS: SUCRALFATE 1 GM TABLET PO ×2 (06:41→12:16)
[2020-07-16] MEDS: oxyCODONE HCL (*CRX) 5 MG TAB IR PO ×2 (06:41→12:20)
[2020-07-16] MEDS: SIMETHICONE 125 MG CHEW TAB PO ×2 (08:35→12:16)
[2020-07-16] MEDS: PANTOPRAZOLE SODIUM IV 40 MG VIAL IV PUSH (08:35)
[2020-07-16] MEDS: DICYCLOMINE HCL 10 MG CAPSULE 20 MG PO ×2 (08:36→12:16)
[2020-07-16] MEDS: MAGNESIUM OXIDE 400 MG TABLET PO (08:36)
[2020-07-16 10:00] VITALS: BP 142/81; PULSE 85; RESP 16; TEMP 36.4; O2SAT 94
[2020-07-16] MEDS: LIDOCAINE HCL 2% VISC SOLN 15 ML UDC PO (12:17)
--- NOTE | 2020-07-16 17:03 | PM.DS ---
DS: Admitting Diagnosis Admitting Diagnosis Admitting Diagnosis: (1) Epigastric abdominal pain: Code(s): R10.13 - Epigastric pain Status: Acute (2) Esophagitis: Code(s): K20.90 - Esophagitis, unspecified without bleeding Status: Acute (3) Intractable nausea and vomiting: Code(s): R11.2 - Nausea with vomiting, unspecified Status: Acute (4) Dehydration: Code(s): E86.0 - Dehydration Status: Acute (5) Chronic pancreatitis: Code(s): K86.1 - Other chronic pancreatitis Status: Chronic (6) GERD (gastroesophageal reflux disease): Code(s): K21.9 - Gastro-esophageal reflux disease without esophagitis Status: Acute (7) Tobacco abuse: Code(s): Z72.0 - Tobacco use Status: Chronic (8) Hypertensive urgency: Code(s): I16.0 - Hypertensive urgency Status: Acute DS: Discharge Diagnosis Discharge Diagnosis (1) Hypertensive urgency: Code(s): I16.0 - Hypertensive urgency Status: Acute (2) Epigastric abdominal pain: Code(s): R10.13 - Epigastric pain Status: Acute (3) Esophagitis: Code(s): K20.90 - Esophagitis, unspecified without bleeding Status: Acute (4) Nausea: Code(s): R11.0 - Nausea Status: Acute (5) Epigastric pain: Code(s): R10.13 - Epigastric pain Status: Acute (6) Dyspnea: Code(s): R06.00 - Dyspnea, unspecified Status: Acute (7) Hypomagnesemia: Code(s): E83.42 - Hypomagnesemia Status: Acute (8) Intractable nausea and vomiting: Code(s): R11.2 - Nausea with vomiting, unspecified Status: Acute (9) Dehydration: Code(s): E86.0 - Dehydration Status: Acute (10) Tobacco abuse: Code(s): Z72.0 - Tobacco use Status: Chronic (11) Intractable vomiting: Code(s): R11.10 - Vomiting, unspecified Status: Acute (12) Hypertension: Code(s): I10 - Essential (primary) hypertension Status: Acute (13) Chronic pancreatitis: Code(s): K86.1 - Other chronic pancreatitis Status: Acute (14) Acute kidney injury: Code(s): N17.9 - Acute kidney failure, unspecified Status: Acute (15) UTI (urinary tract infection): Code(s): N39.0 - Urinary tract infection, site not specified Status: Acute (16) Drug-seeking behavior: Code(s): Z76.5 - Malingerer [conscious simulation] Status: Acute DS: Summary Hospital Course Reason for hospitalization: intactable vomiting Hospital Course: 64 yo F w apparent age greater than chronological presented to ER w N/V abd pain. extensive workup revealed chronic pancreatitis and acute esophagitis on imaging. She was requesting diludid during hospitalization. Dilaudid was discontinued, GI cocktail and carafte administered in addition to PPI, and pt's diet was advanced. She did very well and was subsequently discharged home in stable condition on PPI, carafate, and given dietary modification recommendations. pt offered oxycodone script for 6 tabs for chronic back and leg pain. Pt stated that isn't worth the paper it is written on and requested Dilaudid tabs instead. No Rx for narcotics was given at dc and instead pt was advised to follow up w pain management physician, GI, and PCP. During this hospitalization; pt was also counseled > 3min to quit smoking Time Spent with Patient Time attestation: Total time spent providing and/or coordinating discharge services: >30min Exam Narrative: Exam Narrative: GEN: Appears chronically ill malnourished, comfortable, NAD HEENT: eyes are clear and none icteric LUNGS: Normal respiratory effort ABD: Not distended, tender to palpation in all quadrants superficially disproportionate to clinic and Imaging findings Lower extremities: no edema SKIN: nonjaundiced Neuro: grossly intact normal speech and mentation. DS: Data Data Comple
--- NOTE | 2020-07-17 05:38 | WPDCDIQUERY2 ---
CDI Query Clarification Request 1) -UTI documented as a discharge diagnosis on discharge summary -No Urine culture was done during this visit -No antibiotics were administered Please clarify if UTI was a diagnosis from 07/13 admit or if it was possibly pulled forward from a prior visit. 2) -Acute kidney injury was documented as a discharge diagnosis on dishcarge summary -Creatinine during this visit was 0.9, 0.8 and 0.8 Please clarify if DERRELL was a diagnosis from 07/13 admit or it if was possibly pulled forward from a prior visit. <Yuni Bush RN - Last Filed: 07/17/20 05:42> UTI and DERRELL were placed on discharge diagnosis list in error. please see corrected discharge dx list below <Mia Gonzalez MD - Last Filed: 07/17/20 07:47> Provider Comments (1) Hypertensive urgency: Code(s): I16.0 - Hypertensive urgency Status: Acute (2) Epigastric abdominal pain: Code(s): R10.13 - Epigastric pain Status: Acute (3) Esophagitis: Code(s): K20.90 - Esophagitis, unspecified without bleeding Status: Acute (4) Nausea: Code(s): R11.0 - Nausea Status: Acute (5) Epigastric pain: Code(s): R10.13 - Epigastric pain Status: Acute (6) Dyspnea: Code(s): R06.00 - Dyspnea, unspecified Status: Acute (7) Hypomagnesemia: Code(s): E83.42 - Hypomagnesemia Status: Acute (8) Intractable nausea and vomiting: Code(s): R11.2 - Nausea with vomiting, unspecified Status: Acute (9) Dehydration: Code(s): E86.0 - Dehydration Status: Acute (10) Tobacco abuse: Code(s): Z72.0 - Tobacco use Status: Chronic (11) Intractable vomiting: Code(s): R11.10 - Vomiting, unspecified Status: Acute (12) Hypertension: Code(s): I10 - Essential (primary) hypertension Status: Acute (13) Chronic pancreatitis: Code(s): K86.1 - Other chronic pancreatitis Status: Acute (16) Drug-seeking behavior: Code(s): Z76.5 - Malingerer [conscious simulation] Status: Acute <Mia Gonzalez MD - Last Filed: 07/17/20 07:47>
== END 2020-07-16 14:00 | disposition home health service (06) | DRG 392 ==
LOC: ANHED 18:47 → ANHIMU 19:38 → ANH2MED 22:39
PROVIDERS: Admitting Provider Family Medicine; Emergency Provider Emergency Medicine; PCP Family Medicine; Visit Provider Hospitalist
DX: K21.00 Gastro-esophageal reflux disease with esophagitis, without bleeding (principal); K86.1 Other chronic pancreatitis; E46 Unspecified protein-calorie malnutrition; Z68.1 Body mass index [BMI] 19.9 or less, adult; I16.0 Hypertensive urgency; E86.0 Dehydration; E83.42 Hypomagnesemia; G89.29 Other chronic pain; M54.9 Dorsalgia, unspecified; F17.210 Nicotine dependence, cigarettes, uncomplicated; Z87.820 Personal history of traumatic brain injury; Z90.710 Acquired absence of both cervix and uterus; Z90.49 Acquired absence of other specified parts of digestive tract; Z76.5 Malingerer [conscious simulation]
CPT/HCPCS: 36415; 71275; 74174; 80053; 81001; 83690; 83735; 84484; 85025; 85027; 96361; 96374; 96375; 96376; 99285; A9270; C9113; G0378; J1170; J2405; J3010; J3475; J7030; Q9967

== ENCOUNTER 2020-07-23 08:03 | Emergency (ER) | payer MEDICARE, MEDICAID, SELFPAY ==
--- NOTE | ~2020-07-23 | CT_ITS ---
EXAMINATION: CT abdomen pelvis wo con DATE: 07/23/2020 08:53 INDICATION: Abdominal pain TECHNIQUE: Computed tomography (CT) of the abdomen and pelvis was performed without intravenous contr ast. The dose-length product (DLP) was 350.31 mGy-cm. Automated exposure control and iterative recons truction technique were employed. COMPARISON: 07/13/2020 FINDINGS: There is a chronic 5 mm nodule of the right lower lobe, likely benign. The heart size is no rmal. Calcified coronary artery atherosclerosis is noted. Punctate calcifications in otherwise normal appearing liver and spleen likely represent healed granulomatous disease. The gallbladder is surgica lly absent. There are coarse calcifications throughout the pancreas, consistent with chronic pancreat itis. There is a 7 mm hemorrhagic cyst of the right kidney upper pole. The left kidney and adrenal gl ands are normal. No pathologically enlarged abdominal or pelvic lymph nodes are identified. There is no free intraperitoneal gas or evidence of bowel obstruction. There is calcified atherosclerosis of t he aorta and many of the other arteries. There are partially imaged changes of posterior fusion of th e lower thoracic and upper lumbar spine. There is a stable T12 burst fracture. Compression fractures of L3 and L4 are unchanged. There is severe lumbar spondylosis. There is an old fracture of the proxi mal right femur with an antegrade intramedullary joshua and interlocking intratrochanteric screw fixatio n. Healing fracture of the left initial tuberosity is noted. IMPRESSION: 1. No CT correlate for the patient's symptoms. Reviewed, dictated and finalized at location A.
[2020-07-23 08:02] VITALS: BP 160/114; PULSE 100; RESP 16; O2SAT 98
[2020-07-23] MEDS: SODIUM CHLORIDE 0.9% IV 1,000 ML 999 ML IV CONT (08:40)
[2020-07-23 08:43] LABS: Basophils Percent Auto 0.3 % (0.2-1.2); Eosinophils Percent Auto 0.4 % (0-4.4); Hematocrit 42.6 % (37.0-47.0); Immature Granulocyte Absolute 0.03 K/mm3 (0.00-0.031); Immature Granulocyte Percent A 0.4 % (0-0.5); Lymphocytes Absolute Auto 0.89 K/mm3 (0.9-3.2); Lymphocytes Percent Auto 13.3 % (18.3-44.2); Mean Corpuscular HGB Conc 32.9 g/dl (32-36); Mean Corpuscular Hemoglobin 29.9 pg (26-34); Mean Corpuscular Volume 90.8 fl (80-100); Mean Platelet Volume 8.6 fl (7.4-10.4); Monocytes Absolute Auto 0.3 K/mm3 (0.1-0.6); Monocytes Percent Auto 4.2 % (2.6-8.5); Neutrophils Absolute Auto 5.4 K/mm3 (1.3-6.7); Neutrophils Percent Auto 81.4 % (45.5-73.1); Platelet Count Result 234 k/mm3 (150-375); Red Blood Count 4.69 M/mm3 (4.2-5.4); Red Cell Distribution Width 14.4 % (11.5-14.5); White Blood Count 6.7 K/mm3 (4.5-10.0)
[2020-07-23 08:58] LABS: Add Urine Microscopic? YES; Appearance Urine Cloudy (Clear); Bacteria Urine Trace /hpf; Bilirubin Urine Negative (Negative); Blood Urine Negative (Negative); Color Urine Yellow (Yellow); Glucose Urine UA Negative (Negative); Ketones Urine Negative (Negative); Leukocyte Esterase Ur 3+ LEU/UL (Negative); Mucus Urine Rare /lpf; Nitrate Urine Negative (Negative); Protein Urine 1+ mg/dL (Negative); Specific Grav Ur 1.012 (1.001-1.035); Squamous Epithelial Cell Urine Many /hpf (Few); WBC Urine 16-20 /hpf
[2020-07-23] MEDS: ONDANSETRON INJ 4 MG/2 ML VIAL IV PUSH ×2 (09:00→09:27)
[2020-07-23 09:09] LABS: Alanine Aminotransferase 13 U/L (4-35); Albumin Level 4.5 g/dL (3.5-5.1); Alkaline Phosphatase 151 U/L (38-126); Anion Gap 7 mmol/L (8-16); Aspartate Amino Transferase 33 U/L (14-36); Bilirubin,Total 0.3 mg/dL (0.2-1.3); Blood Urea Nitrogen 12 mg/dL (7-17); Calcium 10.4 mg/dL (8.4-10.2); Carbon Dioxide 34 mmol/L (22-30); Chloride 100 mmol/L (98-107); Estimated CRCL calculation 44 ml/min; Estimated Glomerular Filt Rate > 60; Glucose 132 mg/dL (65-105); Lipase 27 U/L (23-300); Potassium 3.7 mmol/L (3.4-5.0); Sodium 141 mmol/L (137-145)
--- NOTE | 2020-07-23 09:09 | ED.ABDPAIN ---
HPI - Abdominal Pain General Chief Complaint: Abdominal Pain Stated Complaint: ABD PAIN Time Seen by Provider: 07/23/20 08:26 Source: patient, EMS and RN notes reviewed Mode of arrival: ambulatory Limitations: no limitations History of Present Illness HPI narrative: Patient is 64 years old white female presents with abdominal pain. Patient is known to us with recurrent ED visits for the same complaint. Patient lives alone, smokes, taking amitriptyline at night to help her to sleep. Her seasonal driver at [facility] referred her to [facility] for further evaluation and are waiting for the results. Patient family physician also at [facility] who did not see for a while. Patient denies any fever or chills chest pain or back pain. Related Data Home Medications Medication Instructions Recorded Confirmed amitriptyline 100 mg PO HS 04/15/20 07/13/20 Allergies Allergy/AdvReac Type Severity Reaction Status Date / Time aspirin Allergy Unknown Unknown Verified 07/23/20 08:39 codeine Allergy Unknown Rash,Unknow Verified 07/23/20 08:39 n Penicillins Allergy Unknown Unknown Verified 07/23/20 08:39 Sulfa (Sulfonamide Allergy Unknown Unknown Verified 07/23/20 08:39 Antibiotics) acetaminophen [From Tylenol] Allergy Hives Verified 07/23/20 08:39 Review of Systems Review of Systems: Narrative: CONSTITUTIONAL: Denies fever, chills, or sweats. EYES: Denies visual changes, redness, or discharge. ENT: Denies rhinorrhea, congestion, sore throat, or otalgia. CARDIOVASCULAR: Denies chest pain, palpitations, or edema. RESPIRATORY: Denies cough or dyspnea. GENITOURINARY: Denies dysuria or hematuria. SKIN: Denies rash or itching. MUSCULOSKELETAL: Denies back pain, joint pain, or myalgia. NEUROLOGIC: Denies headache, numbness, or weakness. PSYCHIATRIC: Denies anxiety or depression. 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 Her son Sonny is the durable power forestry foreman for healthcare. Patient is a full code. The patient continues to smoke 1 pack a cigarettes in a week. She does occasionally use marijuana no other illicit drugs. She denies any alcohol she stated the last time she drink any alcohol was September of last year when she was at a [employer]. Smoking packs per day: 0.3 Smoking cigarettes per day: 6.0 Years smoked: 20 Smoking pack-years: 6.00 Smoking status: Current every day smoker Tobacco type: cigarettes Second hand tobacco smoke exposure: No Alcohol intake: former Substance use: never Substance use type: marijuana Other substance usage details: a few weeks ago when she was nauseous she tried her son's. Gender identity (if verbalized by the patient): Female Spiritual care concerns: No Agree to blood products: Yes Exam Narrative: Exam Narrative: General appearance: Well-developed, poorly nourished, no significant other at the bedside, anxious and depressed Skin: Normal color Head: Normocephalic, nontraumatic Eyes: Clear conjunctiva ENT: Oropharynx normal, ears normal, nose normal Neck: Supple, nontender Chest and respiratory: Airway patent, no respiratory distress, no accesso
[2020-07-23] MEDS: HYDROmorphone HCL INJ (*CRX) 1 MG/ML SYR 0.5 MG IV PUSH (09:24)
[2020-07-23 09:50] VITALS: BP 141/86; PULSE 107; RESP 18; O2SAT 99
== END 2020-07-23 09:53 | disposition home or self-care (01) ==
PROVIDERS: Emergency Provider Emergency Medicine; PCP Family Medicine
DX: R10.9 Unspecified abdominal pain (principal); G89.29 Other chronic pain; F32.9 Major depressive disorder, single episode, unspecified; K21.9 Gastro-esophageal reflux disease without esophagitis; F17.210 Nicotine dependence, cigarettes, uncomplicated
CPT/HCPCS: 36415; 74176; 80053; 81001; 83690; 85025; 87077; 87086; 87088; 87186; 96361; 96374; 96375; 99284; J1170; J2405; J7030

== ENCOUNTER 2020-09-18 10:16 | Outpatient (CLI) | payer MEDICARE, MEDICAID, SELFPAY ==
--- NOTE | ~2020-09-18 | CT_ITS ---
EXAMINATION: CT thoracic spine wo con EXAM DATE: 09/18/2020 11:19 INDICATION: Generalized back pain, history of trauma, surgery 2018. TECHNIQUE: Spiral CT of the cervical spine was performed without contrast. Axial images were reviewe d. Coronal and sagittal reformatted images cervical spine were also reviewed. The dose-length produc t (DLP) for this examination was 574.70 mGy-cm. The exposure was tailored according to patient size (auto mA exposure control), and iterative reconstruction (ASIR) was used as additional dose reduction technique. Comparison is made to prior examination from 02/26/2020. FINDINGS: There is chronic T12 burst fracture with moderate to severe loss of this height centrally, 7 mm retropulsion, unchanged. Posterior fusion with intact hardware T10-L2, pedicular screws (except T12 level) well seated without lucency. T12 laminectomies. Mild chronic compression fractures of T4 and L1 superior endplates unchanged. There are no acute fractures identified. The vertebral bodies ar e aligned in the AP dimension. No evidence of significant central canal or neural foraminal stenosis. Mild thoracic disc disease and facet arthropathy. Paraspinal soft tissue is unremarkable. Pancreatic calcifications, chronic pancreatitis. Cholecystectomy clips. Mild emphysema. IMPRESSION: 1. Stable exam. Intact fusion T11-L2. 2. Chronic T12 burst fracture. Chronic mild compression fractures T4, L1. 3. Mild thoracic spondylosis. Reviewed, dictated and finalized at location A.
== END 2020-09-18 10:17 | disposition home or self-care (01) ==
LOC: CHSIMG 10:18
PROVIDERS: PCP Family Medicine; Visit Provider Physical Medicine & Rehabilitation Pain Medicine
DX: M54.9 Dorsalgia, unspecified (principal)
CPT/HCPCS: 72128

== ENCOUNTER 2020-10-07 10:42 | Outpatient (CLI) | payer MEDICARE, MEDICAID, SELFPAY ==
--- NOTE | ~2020-10-07 | CT_ITS ---
EXAMINATION: CT thoracic spine wo con DATE: 10/07/2020 11:11 INDICATION: Back pain. TECHNIQUE: Computed tomography (CT) of the thoracic spine was performed without intravenous contrast. Automated exposure control and iterative reconstruction technique were employed. The dose-length pro duct was 425.59 mGy-cm. COMPARISON: Thoracic spine CT 09/18/2020 FINDINGS: There are patchy airspace opacities and centrilobular nodules in the lower lobes, right mid dle lobe, and right upper lobe, consistent with pneumonia. A calcified left lung nodule and calcified left hilar and mediastinal lymph nodes are consistent with old granulomatous disease. Surgical clips in the right upper quadrant are likely from cholecystectomy. Calcifications in the liver and spleen are consistent with old granulomatous disease. There is a 7 mm hyperdense cyst in right kidney. Calci fications in the pancreas are consistent with chronic pancreatitis. There is 3 degrees levocurvature of thoracic spine. There is kyphosis of thoracic spine. There are chronic compression fractures of T4 and T7 with less than 1/5 loss of height. There is a chronic compression fracture of T11 with 1/5 lo ss of height. There is a chronic burst fracture of T12 with 3/5 loss of height and retropulsion of nata ne 3 mm into central spinal canal. There is a chronic compression fracture of L1 with 1/5 loss of hei ght. There are changes of posterior fusion procedure from T10 to L2 with pedicle screws in T10, T11, L1, and L2. The left T10 screw enters the T9-T10 disc. There is mildly decreased disc height at multi ple levels. There is multilevel facet joint osteoarthritis, severe on the right at T3-T4 and on the l eft at T6-T7. On the right, there is mild neural foraminal stenosis at T3-T4, T8-T9, T9-T10, and T11- T12. On the left, there is mild neural foraminal stenosis at T6-T7, T8-T9, and T11-T12. At T12, there is mild central canal stenosis with posterior decompression. IMPRESSION: 1. Multifocal pneumonia, new from 09/18/2020. 2. No acute fracture. 3. Mild thoracic spondylosis. 4. Posterior fusion procedure from T10 to L2. Reviewed, dictated and finalized at location A.
== END 2020-10-07 10:43 | disposition home or self-care (01) ==
LOC: ANHIMG 10:43
PROVIDERS: PCP Family Medicine; Visit Provider Physical Medicine & Rehabilitation Pain Medicine
DX: Z98.1 Arthrodesis status (principal); M47.815 Spondylosis without myelopathy or radiculopathy, thoracolumbar region; N28.1 Cyst of kidney, acquired; M40.204 Unspecified kyphosis, thoracic region; S22.081A Stable burst fracture of T11-T12 vertebra, initial encounter for closed fracture; M48.05 Spinal stenosis, thoracolumbar region
CPT/HCPCS: 72128

== ENCOUNTER 2020-11-04 13:25 | Emergency (ER) | payer MEDICARE, MEDICAID, SELFPAY ==
[2020-11-04] VITALS (20 sets, daily range): BP systolic 123–189; BP diastolic 96–120; PULSE 76–105; RESP 10–29; TEMP 36.7–37; O2SAT 93–100
--- NOTE | ~2020-11-04 | CT_ITS ---
EXAMINATION: CT abdomen pelvis w con EXAM DATE: 11/04/2020 16:41 INDICATION: Pancreatitis. Abdominal pain. Nausea and vomiting. TECHNIQUE: Spiral CT of the abdomen and pelvis was performed following intravenous injection of 100 m L Omnipaque 350. Axial, coronal and sagittal images of the abdomen and pelvis were reviewed. The do se-length product (DLP) for this examination was 225.54 mGy-cm. The exposure was tailored according to patient size (auto mA exposure control), and iterative reconstruction (ASIR) was used as additiona l dose reduction technique. Comparison is made to prior examination from 07/23/2020. FINDINGS: Extensive pancreatic calcifications, chronic pancreatitis. No definite acute inflammatory c hange but correlate with amylase and lipase levels. The liver, spleen, adrenal glands and pancreas a re otherwise unremarkable. There are cholecystectomy clips. Portal and splenic veins are patent. K idneys enhance symmetrically. There is no hydronephrosis. The uterus is not identified and has lik olayinka been surgically resected. The bladder is unremarkable. There is no retroperitoneal or pelvic ly mphadenopathy. There is moderate scattered arteriosclerotic disease. There are no findings to suggest appendicitis. There is small sliding gastroesophageal hiatal hernia . There is expected amount of colonic stool. No free intraperitoneal gas. The heart is normal in size. There are no pericardial or pleural effusions. There is subsegmental right middle lobe atelec tasis. There are no osteoblastic or osteolytic lesions identified. Thoracolumbar fusion bridging a mo derate to severe burst fracture at T12, stable in appearance. There is mild compression of L3 and L4 also unchanged. There is right hip gamma nail. Mild lumbar levoscoliosis. IMPRESSION: 1. Chronic pancreatitis. 2. Other surgical, chronic changes. Reviewed, dictated and finalized at location A.
[2020-11-04 14:39] LABS: Basophils Absolute Auto 0.1 K/mm3 (0.0-0.1); Basophils Percent Auto 0.8 % (0.2-1.2); Eosinophils Percent Auto 0.7 % (0-4.4); Hematocrit 42.5 % (37.0-47.0); Hemoglobin 13.6 g/dL (12.0-15.0); Immature Granulocyte Absolute 0.02 K/mm3 (0.00-0.031); Immature Granulocyte Percent A 0.3 % (0-0.5); Lymphocytes Absolute Auto 1.24 K/mm3 (0.9-3.2); Lymphocytes Percent Auto 20.5 % (18.3-44.2); Mean Corpuscular Volume 93.6 fl (80-100); Mean Platelet Volume 8.8 fl (7.4-10.4); Monocytes Absolute Auto 0.4 K/mm3 (0.1-0.6); Monocytes Percent Auto 6.8 % (2.6-8.5); Neutrophils Absolute Auto 4.3 K/mm3 (1.3-6.7); Neutrophils Percent Auto 70.9 % (45.5-73.1); Platelet Count Result 352 k/mm3 (150-375); Red Blood Count 4.54 M/mm3 (4.2-5.4); Red Cell Distribution Width 16.1 % (11.5-14.5)
[2020-11-04 14:40] LABS: Alanine Aminotransferase 17 U/L (4-35); Albumin Level 4.5 g/dL (3.5-5.1); Alkaline Phosphatase 165 U/L (38-126); Anion Gap 8 mmol/L (8-16); Aspartate Amino Transferase 26 U/L (14-36); Bilirubin,Total 0.5 mg/dL (0.2-1.3); Blood Urea Nitrogen 15 mg/dL (7-17); Calcium 9.9 mg/dL (8.4-10.2); Carbon Dioxide 27 mmol/L (22-30); Chloride 103 mmol/L (98-107); Estimated CRCL calculation 53 ml/min; Estimated Glomerular Filt Rate > 60; Glucose 126 mg/dL (65-110); Lipase 28 U/L (23-300); Potassium 4.5 mmol/L (3.4-5.0); Sodium 138 mmol/L (137-145)
[2020-11-04] MEDS: LACTATED RINGERS 1,000 ML 999 ML IV CONT (16:27)
[2020-11-04] MEDS: FAMOTIDINE 20 MG/2 ML VIAL IV PUSH (16:27)
--- NOTE | 2020-11-04 16:29 | PC.NURSE ---
Pt off floor to radiology
[2020-11-04 16:40] LABS: Lactic Acid Reflex 0.7 mmol/L (0.7-2.1)
[2020-11-04] MEDS: MORPHINE SULFATE (*CRX) 4 MG/ML INJ IV PUSH (17:01)
--- NOTE | 2020-11-04 17:18 | ED.GENADULT ---
HPI - General Adult General Chief complaint: Abdominal Pain Stated complaint: Nausea/Vomiting Abd Pain HX Pancreatitis Time Seen by Provider: 11/04/20 15:16 Source: patient and RN notes reviewed Mode of arrival: ambulatory Limitations: no limitations History of Present Illness HPI narrative: Patient is a 65-year-old female who presents to emergency department for evaluation of abdominal pain with nausea and vomiting that began Monday she notes history of chronic pancreatitis patient notes she also has had a mild cough during this. Notes that she has had moderate amount of emesis since Monday now cannot tolerate p.o. intake she has not seen anyone for this nor is she taken anything for her symptoms Related Data Home Medications Medication Instructions Recorded Confirmed amitriptyline 100 mg PO HS 04/15/20 07/13/20 Allergies Allergy/AdvReac Type Severity Reaction Status Date / Time aspirin Allergy Unknown Unknown Verified 11/04/20 15:31 codeine Allergy Unknown Rash,Unknow Verified 11/04/20 15:31 n Penicillins Allergy Unknown Unknown Verified 11/04/20 15:31 Sulfa (Sulfonamide Allergy Unknown Unknown Verified 11/04/20 15:31 Antibiotics) acetaminophen [From Tylenol] Allergy Hives Verified 11/04/20 15:31 Review of Systems Review of Systems: All systems reviewed & are unremarkable except as noted in HPI and below PMFSH Past Medical History Medical History GERD (gastroesophageal reflux disease) Nausea Pancreatitis 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 Her son Sonny is the durable power state attorney for healthcare. Patient is a full code. The patient continues to smoke 1 pack a cigarettes in a week. She does occasionally use marijuana no other illicit drugs. She denies any alcohol she stated the last time she drink any alcohol was September of last year when she was at a barbecue. Smoking packs per day: 0.3 Smoking cigarettes per day: 6.0 Years smoked: 20 Smoking pack-years: 6.00 Smoking status: Current every day smoker Tobacco type: cigarettes Second hand tobacco smoke exposure: No Alcohol intake: former Substance use: never Substance use type: marijuana Other substance usage details: a few weeks ago when she was nauseous she tried her son's. Gender identity (if verbalized by the patient): Female Sexual Orientation (if Verbalized by the Patient): Straight or Heterosexual Spiritual care concerns: No Agree to blood products: Yes Exam Narrative: GENERAL: Ill-appearing, thin, and in no acute distress. HEAD: Normocephalic, atraumatic. EYES: PERRLA and EOMI. ENT: Nares clear, no rhinorrhea or epistaxis. Mucous membranes moist. Oropharynx without tonsillar hypertrophy exudate or other lesions. Bilateral TMs pearly colvin nonbulging NECK: Supple. No adenopathy or masses. No carotid bruits or JVD CHEST: Coarse breath sounds on auscultation. No respiratory distress. No wheezes rales or rhonchi HEART: Regular rate and rhythm. No murmur heard. Normal peripheral pulses. ABDOMEN: Soft, generalized tenderness with voluntary guarding, nondistended EXTREMITIES: Normal range of motion. No edema. SKIN: Warm, dry, no rash. NEURO: No focal deficits. Alert and oriented x3. Cranial nerves II thro
[2020-11-04 17:57] LABS: Add Urine Microscopic? YES; Appearance Urine Clear (Clear); Bilirubin Urine Negative (Negative); Blood Urine Negative (Negative); Color Urine Yellow (Yellow); Glucose Urine UA Negative (Negative); Ketones Urine Negative (Negative); Leukocyte Esterase Ur 1+ LEU/UL (Negative); Mucus Urine Rare /lpf; Nitrate Urine Negative (Negative); Protein Urine 1+ mg/dL (Negative); Squamous Epithelial Cell Urine Few /hpf (Few); Urobilinogen Urine Negative mg/dL (<2.0)
[2020-11-04] MEDS: LORazepam INJ (*CRX) 2 MG/ML VIAL 1 MG IV PUSH (17:59)
[2020-11-04 18:02] LABS: Specific Grav Ur 1.041 (1.001-1.035)
[2020-11-04 18:16] LABS: Amphetamine Screen Urine Negative (Negative); Barbiturate Screen Urine Negative (Negative); Benzodiazepines Screen Urine Negative (Negative); Cannabinoid Screen Urine Positive (Negative); Cocaine Screen Urine Negative (Negative); Methadone Screen Urine Negative (Negative); Opiate Screen Urine Positive (Negative); Phencyclidine Screen Urine Negative (Negative)
[2020-11-04 18:21] LABS: Ethanol < 10 mg/dL (<10)
== END 2020-11-04 19:23 | disposition home or self-care (01) ==
PROVIDERS: Emergency Medicine Emergency Medical Services; Emergency Provider Emergency Medicine; PCP Family Medicine
DX: R10.9 Unspecified abdominal pain (principal); F17.210 Nicotine dependence, cigarettes, uncomplicated; Z87.19 Personal history of other diseases of the digestive system
CPT/HCPCS: 36415; 74177; 80053; 80307; 81001; 83605; 83690; 85025; 87040; 96361; 96374; 96375; 99284; J2060; J2270; J7120; Q9967

== ENCOUNTER 2021-02-09 19:56 | Emergency (ER) | payer OTHER, SELFPAY ==
[2021-02-09 20:06] VITALS: BP 108/87; PULSE 127; RESP 18; TEMP 37.6; O2SAT 97
--- NOTE | 2021-02-09 20:12 | PC.NURSE ---
Pt made aware if she decides to leave IV needs to come out.
[2021-02-09 21:58] VITALS: BP 180/116; PULSE 114; RESP 18; O2SAT 97
[2021-02-09 22:34] VITALS: BP 180/76; PULSE 110; RESP 20; O2SAT 95
[2021-02-09] MEDS: HYDROmorphone HCL INJ (*CRX) 1 MG/ML SYR 0.5 MG IV PUSH (22:57)
--- NOTE | 2021-02-09 23:00 | PC.NURSE ---
Assuming care of pt.
[2021-02-09 23:21] VITALS: BP 128/91; PULSE 117; RESP 18; O2SAT 95
--- NOTE | 2021-02-09 23:25 | ED.ABDPAIN ---
HPI - Abdominal Pain General Chief Complaint: Abdominal Pain Stated Complaint: abd pain Time Seen by Provider: 02/09/21 22:44 History of Present Illness HPI narrative: 65-year-old female with history of chronic pancreatitis presents to the emergency department for evaluation of upper abdominal pain. Patient states she does frequently have chronic pancreatitis pain. Patient does have a nerve stimulator in place but states that the remote is broken and was sent back to the supervisor water softener service on Monday. Patient presents seeking pain control. Related Data Home Medications Medication Instructions Recorded Confirmed amitriptyline 100 mg PO HS 04/15/20 02/11/21 Allergies Allergy/AdvReac Type Severity Reaction Status Date / Time aspirin Allergy Unknown Unknown Verified 02/11/21 12:48 codeine Allergy Unknown Rash,Unknow Verified 02/11/21 12:48 n Penicillins Allergy Unknown Unknown Verified 02/11/21 12:48 Sulfa (Sulfonamide Allergy Unknown Unknown Verified 02/11/21 12:48 Antibiotics) acetaminophen [From Tylenol] Allergy Hives Verified 02/11/21 12:48 Review of Systems Review of Systems: CONSTITUTIONAL: Denies fever, chills, or sweats. EYES: Denies visual changes, redness, or discharge. ENT: Denies rhinorrhea, congestion, sore throat, or otalgia. CARDIOVASCULAR: Denies chest pain, palpitations, or edema. RESPIRATORY: Denies cough or dyspnea. GASTROINTESTINAL: Abdominal pain with associated nausea GENITOURINARY: Denies dysuria or hematuria. SKIN: Denies rash or itching. MUSCULOSKELETAL: Denies back pain, joint pain, or myalgia. NEUROLOGIC: Denies headache, numbness, or weakness. PSYCHIATRIC: Denies anxiety or depression. [facility] Past Medical History Medical History GERD (gastroesophageal reflux disease) Nausea Pancreatitis 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 Her son Sonny is the durable power employment law attorney for healthcare. Patient is a full code. The patient continues to smoke 1 pack a cigarettes in a week. She does occasionally use marijuana no other illicit drugs. She denies any alcohol she stated the last time she drink any alcohol was September of last year when she was at a barbecue. Smoking packs per day: 0.3 Smoking cigarettes per day: 6.0 Years smoked: 20 Smoking pack-years: 6.00 Smoking status: Current every day smoker Tobacco type: cigarettes Second hand tobacco smoke exposure: No Alcohol intake: former Substance use: never Substance use type: marijuana Other substance usage details: a few weeks ago when she was nauseous she tried her son's. Gender identity (if verbalized by the patient): Female Sexual Orientation (if Verbalized by the Patient): Straight or Heterosexual Spiritual care concerns: No Agree to blood products: Yes Exam Narrative: APPEARANCE: Well appearing, no pain in distress, well-nourished. Head normocephalic atraumatic. EYES: PERRLA/EOMI, conjunctivae very clear. NECK: Supple. No adenopathy, no masses. RESPIRATORY: Airway patent, respirations nonlabored. Clear to auscultation bilaterally, no rales, rhonchi, wheezing. CARDIOVASCULAR: Regular rate and rhythm without murmurs rubs or gallops. ABDOMINAL: Epigastric tenderness to palpation. No evidence of peritonitis M
[2021-02-09 23:34] LABS: Basophils Percent Auto 0.1 % (0.2-1.2); Hematocrit 47.3 % (37.0-47.0); Hemoglobin 15.6 g/dL (12.0-15.0); Immature Granulocyte Absolute 0.02 K/mm3 (0.00-0.031); Immature Granulocyte Percent A 0.2 % (0-0.5); Lymphocytes Absolute Auto 1.15 K/mm3 (0.9-3.2); Lymphocytes Percent Auto 11.5 % (18.3-44.2); Mean Corpuscular Hemoglobin 29.3 pg (26-34); Mean Corpuscular Volume 88.7 fl (80-100); Mean Platelet Volume 9.1 fl (7.4-10.4); Monocytes Absolute Auto 0.8 K/mm3 (0.1-0.6); Monocytes Percent Auto 7.7 % (2.6-8.5); Neutrophils Percent Auto 80.5 % (45.5-73.1); Platelet Count Result 247 k/mm3 (150-375); Red Blood Count 5.33 M/mm3 (4.2-5.4); Red Cell Distribution Width 16.3 % (11.5-14.5)
[2021-02-09 23:51] LABS: Lipase 48 U/L (23-300)
[2021-02-09 23:54] LABS: Lactic Acid Reflex 1.3 mmol/L (0.7-2.1)
[2021-02-09 23:56] LABS: Alanine Aminotransferase 26 U/L (4-35); Albumin Level 5.3 g/dL (3.5-5.1); Alkaline Phosphatase 145 U/L (38-126); Anion Gap 13 mmol/L (8-16); Aspartate Amino Transferase 29 U/L (14-36); Bilirubin,Total 0.6 mg/dL (0.2-1.3); Blood Urea Nitrogen 18 mg/dL (7-17); Calcium 11.3 mg/dL (8.4-10.2); Carbon Dioxide 30 mmol/L (22-30); Chloride 94 mmol/L (98-107); Estimated CRCL calculation 49 ml/min; Estimated Glomerular Filt Rate > 60; Glucose 148 mg/dL (65-110); Sodium 137 mmol/L (137-145)
[2021-02-10] MEDS: HYDROmorphone HCL INJ (*CRX) 1 MG/ML SYR 0.5 MG IV PUSH (01:10)
[2021-02-10] MEDS: MAG HYDROX/AL HYDROX/SIMETH 30 ML UDC PO (01:25)
[2021-02-10] MEDS: traMADol HCL (*CRX) 50 MG TABLET PO (01:47)
[2021-02-10 01:50] VITALS: BP 114/91; PULSE 118; RESP 18; O2SAT 96
== END 2021-02-10 01:50 | disposition home or self-care (01) ==
PROVIDERS: Emergency Provider Emergency Medicine; PCP Family Medicine
DX: K86.1 Other chronic pancreatitis (principal); K21.9 Gastro-esophageal reflux disease without esophagitis; F17.210 Nicotine dependence, cigarettes, uncomplicated
CPT/HCPCS: 36415; 80053; 83605; 83690; 85025; 96374; 99284; A9270; J1170

== ENCOUNTER 2021-02-11 12:27 | Emergency (ER) | payer OTHER, SELFPAY ==
--- NOTE | ~2021-02-11 | CT_ITS ---
EXAMINATION: CT abdomen pelvis w con DATE: 02/11/2021 13:57 INDICATION: Abdominal pain. Nausea and vomiting. TECHNIQUE: Computed tomography (CT) of the abdomen and pelvis was performed with 100 mL Omnipaque 350 intravenous contrast. Automated exposure control and iterative reconstruction technique were employe d. The dose-length product was 203.17 mGy-cm. COMPARISON: CT abdomen and pelvis 11/04/2020 FINDINGS: The visualized portions of the lung bases demonstrate minimal atelectasis. A calcified left lung nodule is consistent with old granulomatous disease. No pleural effusion. The heart size is nor mal. There are coronary artery calcifications. There are calcifications of aortic valve. No pericardi al effusion. Calcifications in the liver and spleen are consistent with old granulomatous disease. Th ere is mild intrahepatic biliary duct dilatation, likely secondary to cholecystectomy. There are calc ifications throughout the pancreas, consistent with chronic pancreatitis. The adrenal glands and kidn eys are normal. There are no dilated loops of bowel. The appendix is not visualized. There is a small sliding hiatal hernia. There are no pathologically enlarged lymph nodes. There is no free intraperit shah fluid. There is an old healed fracture of proximal right femur with internal fixation. There ar e changes of posterior fusion procedure from T10 to L2. There is a chronic burst fracture of T12. An intrathecal catheter is noted. There is severe lumbar spondylosis. There are chronic compression frac tures of L1, L3, and L4. IMPRESSION: 1. Small sliding hiatal hernia. Reviewed, dictated and finalized at location A. ULAR TANK COOPER
--- NOTE | 2021-02-11 12:35 | ECG_ITS ---
Measurements Intervals [place] Rate: 108 P: 72 MO: 157 QRS: 64 QRSD: 83 T: 46 QT: 314 QTc: 423 Interpretive Statements SINUS TACHYCARDIA POSSIBLE RIGHT ATRIAL ENLARGEMENT MINIMAL Q WAVES- INFERIOR LEADS ABNORMAL ECG Electronically Signed On 02-11-2021 14:09:54 DIRECTOR EXPORT by Santana Retana D.O.
[2021-02-11 12:48] VITALS: BP 158/114; PULSE 114; RESP 20; TEMP 36.3; O2SAT 94
[2021-02-11 12:52] LABS: Basophils Absolute Auto 0.04 K/mm3 (0.00-0.10); Basophils Percent Auto 0.6 % (0.0-1.0); Eosinophils Absolute Auto 0.02 K/mm3 (0.02-0.50); Eosinophils Percent Auto 0.3 % (1.0-6.0); Hematocrit 46.4 % (35.0-49.0); Hemoglobin 15.3 g/dL (12.0-15.0); Immature Granulocyte Absolute 0.03 K/mm3 (0.00-0.00); Immature Granulocyte Percent A 0.5 % (0.0-0.0); Lymphocytes Absolute Auto 1.36 K/mm3 (1.10-4.50); Lymphocytes Percent Auto 21.2 % (18.0-42.0); Mean Corpuscular Hemoglobin 29.1 pg (27.0-31.0); Mean Corpuscular Volume 88.4 fL (78.0-102.0); Mean Platelet Volume 8.8 fl (9.2-11.8); Monocytes Absolute Auto 0.42 K/mm3 (0.10-0.90); Monocytes Percent Auto 6.6 % (2.0-11.0); Neutrophils Absolute Auto 4.5 K/mm3 (1.7-7.2); Neutrophils Percent Auto 70.8 % (50.0-70.0); Platelet Count Result 194 K/mm3 (150-420); Red Blood Count 5.25 M/mm3 (4.20-5.40); Red Cell Distribution Width 15.9 % (11.6-14.4); White Blood Count 6.4 K/mm3 (4.8-10.8)
[2021-02-11 13:05] LABS: Partial Thromboplastin Time 28.2 SEC (23.90-30.70); Prothrombin Time 10.6 Seconds (9.50-12.10)
[2021-02-11 13:06] LABS: Alanine Aminotransferase 27 U/L (14-59); Albumin Level 4.4 g/dL (3.4-5.0); Alkaline Phosphatase 130 U/L (46-116); Anion Gap 10 mmol/L (8-16); Aspartate Amino Transferase 17 U/L (15-37); Bilirubin,Total 0.4 mg/dL (0.00-1.00); Blood Urea Nitrogen 23 mg/dL (7-18); Carbon Dioxide 30 mmol/L (21-32); Chloride 96 mmol/L (98-108); Estimated CRCL calculation 38 ml/min; Estimated Glomerular Filt Rate 52; Glucose 139 mg/dL (70-99); Lactic Acid Reflex 1.1 mmol/L (0.4-2.0); Lipase 25 U/L (73-393); Osmolality Calculated 287 mOsm/kg (285-295); Potassium 3.8 mmol/L (3.5-5.1); Sodium 136 mmol/L (136-145); Total Protein 8.7 g/dL (6.4-8.2); Troponin I 8.2 ng/L (0.00-60.4)
[2021-02-11] MEDS: SODIUM CHLORIDE 0.9% IV 1,000 ML 999 ML IV CONT (13:09)
[2021-02-11] MEDS: MORPHINE SULFATE (*CRX) 4 MG/ML INJ IV PUSH (13:10)
[2021-02-11] MEDS: ONDANSETRON INJ 4 MG/2 ML VIAL IV PUSH (13:10)
[2021-02-11 13:11] LABS: Calcium 9.4 mg/dL (8.5-10.1)
[2021-02-11 13:13] LABS: CRP < 0.2 mg/dL (0.0-0.9)
--- NOTE | 2021-02-11 14:08 | ED.ABDPAIN ---
HPI - Abdominal Pain General Chief Complaint: Abdominal Pain Stated Complaint: ambulance Source: patient and EMS Mode of arrival: ambulatory History of Present Illness HPI narrative: this is a 65-year-old female with a history of chronic pancreatitis presents via EMS with some abdominal pain she rates at 20/10, with nausea had similar episodes 2 days ago and was seen at [place] [facility] and was discharged. Has a electrical pain box that apparently her remote is malfunction. There is no diarrhea constipation no fever chills there is some nausea with no episodes of vomiting no chest pain no shortness of breath. MD elicited complaint: abdominal pain Pertinent past history: other ( pancreatitis) Onset (ago): year(s) Pain Consistency: constant Location: LLQ Severity: similar to previous episodes Pain scale (0-10): 10 Quality: aching Related Data Home Medications Medication Instructions Recorded Confirmed amitriptyline 100 mg PO HS 04/15/20 02/11/21 Allergies Allergy/AdvReac Type Severity Reaction Status Date / Time aspirin Allergy Unknown Unknown Verified 02/11/21 12:48 codeine Allergy Unknown Rash,Unknow Verified 02/11/21 12:48 n Penicillins Allergy Unknown Unknown Verified 02/11/21 12:48 Sulfa (Sulfonamide Allergy Unknown Unknown Verified 02/11/21 12:48 Antibiotics) acetaminophen [From Tylenol] Allergy Hives Verified 02/11/21 12:48 Review of Systems Review of Systems: All systems reviewed & are unremarkable except as noted in HPI and below PMFSH Past Medical History Medical History GERD (gastroesophageal reflux disease) Nausea Pancreatitis 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 Her son Sonny is the durable power assistant attorney general for healthcare. Patient is a full code. The patient continues to smoke 1 pack a cigarettes in a week. She does occasionally use marijuana no other illicit drugs. She denies any alcohol she stated the last time she drink any alcohol was September of last year when she was at a barbecue. Smoking packs per day: 0.3 Smoking cigarettes per day: 6.0 Years smoked: 20 Smoking pack-years: 6.00 Smoking status: Current every day smoker Tobacco type: cigarettes Second hand tobacco smoke exposure: No Alcohol intake: former Substance use: never Substance use type: marijuana Other substance usage details: a few weeks ago when she was nauseous she tried her son's. Gender identity (if verbalized by the patient): Female Sexual Orientation (if Verbalized by the Patient): Straight or Heterosexual Spiritual care concerns: No Agree to blood products: Yes Exam Const: General: no acute distress Orientation/consciousness: patient oriented x3 HENMT: Head: normal to inspection Eyes: Conjunctivae: conjunctivae normal Pupils: Equal, round and reactive pupils present Direct Ophthalmoscopy: no photophobia Neck: Neck: normal visual inspection, no lymphadenopathy and no meningeal signs Chest: Chest palpation & inspection: normal inspection of the chest Resp: Effort & Inspection: normal respiratory effort Auscultation: clear to auscultation bilaterally Cardio: Rate: regular rate Rhythm: regular rhythm GI: GI Palp: Yes Soft to palpation and Yes Tenderness to palpation pres
[2021-02-11 14:49] VITALS: BP 170/105; PULSE 100; RESP 20; TEMP 36.3; O2SAT 95
== END 2021-02-11 14:55 | disposition home or self-care (01) ==
PROVIDERS: Emergency Provider Emergency Medicine; PCP Family Medicine
DX: R10.9 Unspecified abdominal pain (principal)
CPT/HCPCS: 36415; 74177; 80053; 83605; 83690; 84484; 85025; 85610; 85730; 86140; 93005; 96361; 96374; 96375; 99283; 99284; J2270; J2405; J7030; Q9967

== ENCOUNTER 2021-02-25 05:30 | Emergency (ER) | payer OTHER, SELFPAY ==
--- NOTE | ~2021-02-25 | CT_ITS ---
EXAMINATION: CT abdomen pelvis w con EXAM DATE: 02/25/2021 07:27 INDICATION: Abd pain history of pancreatitis abd pain w/ N/V, hx pancreatitis TECHNIQUE: Spiral CT of the abdomen and pelvis was performed following intravenous injection of 100 m L Omnipaque 350. Axial, coronal and sagittal images of the abdomen and pelvis were reviewed. The do se-length product (DLP) for this examination was 226.50 mGy-cm. The exposure was tailored according to patient size (auto mA exposure control), and iterative reconstruction (ASIR) was used as additiona l dose reduction technique. Comparison is made to prior examination from 02/11/2021. FINDINGS: Extensive pancreatic calcifications, chronic pancreatitis. The liver, spleen, adrenal glan ds and pancreas are otherwise unremarkable. There are surgical clips in the gallbladder fossa. Some biliary duct dilation which is common finding following cholecystectomy. Portal and splenic veins a re patent but portal vein has enlarged diameter of 1.8 cm, could indicate portal hypertension. Also s ome enlarged mesenteric, gastric veins, suggesting portosystemic shunting. Spleen normal in size. Ki dneys enhance symmetrically. There is no hydronephrosis. The uterus is not identified and has like ly been surgically resected. The bladder is unremarkable. There is no retroperitoneal or pelvic lym phadenopathy. There is moderate scattered arteriosclerotic disease. There may be some gastric antral edema, possible peptic ulcer disease. There is distal esophageal wal l thickening, probably edema from esophagitis. There is small sliding gastroesophageal hiatal hernia. There are no findings to suggest appendicitis. There is expected amount of colonic stool. No free intraperitoneal gas. The heart is normal in size. There are no pericardial or pleural effusions. The lung bases are unremarkable. T12 burst fracture treated with hardware. Mild to moderate compress ion fractures of L1, L3 and L4. Pain pump pack and catheter. Right hip gamma nail. There are no acute fractures identified. IMPRESSION: 1. Possible gastritis/gastric antral peptic ulcer disease. Distal esophageal edema, esophagitis. Sm all hiatal hernia. 2. Probable portal hypertension. 3. Chronic pancreatitis. Reviewed, dictated and finalized at location A. MAKER BENCH STAMPING IMPRESSION: 1. Possible gastritis/gastric antral peptic ulcer disease. Distal esophageal edema, esophagitis. Small hiatal hernia. 2. Probable portal hypertension. 3. Chronic pancreatitis.
[2021-02-25 05:32] VITALS: BP 198/117; PULSE 88; RESP 18; TEMP 36; O2SAT 100
[2021-02-25 06:20] LABS: Basophils Absolute Auto 0.02 K/mm3 (0.00-0.10); Basophils Percent Auto 0.3 % (0.0-1.0); Eosinophils Absolute Auto 0.01 K/mm3 (0.02-0.50); Eosinophils Percent Auto 0.2 % (1.0-6.0); Hematocrit 42.7 % (35.0-49.0); Hemoglobin 14.3 g/dL (12.0-15.0); Immature Granulocyte Absolute 0.02 K/mm3 (0.00-0.00); Immature Granulocyte Percent A 0.3 % (0.0-0.0); Lymphocytes Absolute Auto 0.68 K/mm3 (1.10-4.50); Mean Corpuscular HGB Conc 33.5 g/dL (32.0-36.0); Mean Corpuscular Hemoglobin 29.4 pg (27.0-31.0); Mean Corpuscular Volume 87.7 fL (78.0-102.0); Monocytes Absolute Auto 0.28 K/mm3 (0.10-0.90); Monocytes Percent Auto 4.5 % (2.0-11.0); Neutrophils Absolute Auto 5.2 K/mm3 (1.7-7.2); Neutrophils Percent Auto 83.7 % (50.0-70.0); Platelet Count Result 177 K/mm3 (150-420); Red Blood Count 4.87 M/mm3 (4.20-5.40); Red Cell Distribution Width 15.9 % (11.6-14.4); White Blood Count 6.2 K/mm3 (4.8-10.8)
[2021-02-25] MEDS: SODIUM CHLORIDE 0.9% IV 1,000 ML 999 ML IV CONT (06:30)
[2021-02-25] MEDS: HYDROmorphone HCL INJ (*CRX) 2 MG/ML VIAL 1 MG IV PUSH (06:33)
--- NOTE | 2021-02-25 06:35 | ED.ABDPAIN ---
HPI - Abdominal Pain General Chief Complaint: Abdominal Pain <Ravindra Victoria MD - Last Filed: 02/25/21 07:04> Stated Complaint: Abdominal Pain <Ravindra Victoria MD - Last Filed: 02/25/21 07:04> Source: patient and RN notes reviewed <Ravindra Victoria MD - Last Filed: 02/25/21 07:04> Mode of arrival: ambulatory <Ravindra Victoria MD - Last Filed: 02/25/21 07:04> Limitations: no limitations <Ravindra Victoria MD - Last Filed: 02/25/21 07:04> History of Present Illness HPI narrative: patient has long history of chronic pancreatitis. She tells me that she does not have to have an inflamed pancreas for it to spasm. Symptoms started yesterday. She has been having some nausea and. She had some Zofran in route. She was here 2 weeks ago for the same complaints had some fluids pain medication and then went home. <Ravindra Victoria MD - Last Filed: 02/25/21 07:04> MD elicited complaint: abdominal pain <Ravindra Victoria MD - Last Filed: 02/25/21 07:04> Pertinent past history: other ( pancreatitis) <Ravindra Victoria MD - Last Filed: 02/25/21 07:04> Onset (ago): day(s) (1) <Ravindra Victoria MD - Last Filed: 02/25/21 07:04> Pain Consistency: constant <Ravindra Victoria MD - Last Filed: 02/25/21 07:04> Location: diffuse <Ravindra Victoria MD - Last Filed: 02/25/21 07:04> Severity: moderate <Ravindra Victoria MD - Last Filed: 02/25/21 07:04> Quality: aching and burning <Ravindra Victoria MD - Last Filed: 02/25/21 07:04> Radiation: none <Ravindra Victoria MD - Last Filed: 02/25/21 07:04> Migration to: no migration <MD Kaylene Mcgee Last Filed: 02/25/21 07:04> Exacerbating factors: eating <Ravindra Victoria MD - Last Filed: 02/25/21 07:04> Relieving factors: nothing <Ravindra Victoria MD - Last Filed: 02/25/21 07:04> Associated symptoms: nausea and vomiting <Ravindra Victoria MD - Last Filed: 02/25/21 07:04> Related Data Home Medications: Home Medications Medication Instructions Recorded Confirmed amitriptyline 100 mg PO HS 04/15/20 02/25/21 <Ravindra Victoria MD - Last Filed: 02/25/21 07:04> Allergies/Adverse Reactions: Allergies Allergy/AdvReac Type Severity Reaction Status Date / Time aspirin Allergy Unknown Unknown Verified 02/25/21 05:42 codeine Allergy Unknown Rash,Unknow Verified 02/25/21 05:42 n Penicillins Allergy Unknown Unknown Verified 02/25/21 05:42 Sulfa (Sulfonamide Allergy Unknown Unknown Verified 02/25/21 05:42 Antibiotics) acetaminophen [From Tylenol] Allergy Hives Verified 02/25/21 05:42 <Ravindra Victoria MD - Last Filed: 02/25/21 07:04> Review of Systems Review of Systems: All systems reviewed & are unremarkable except as noted in HPI and below <Ravindra Victoria MD - Last Filed: 02/25/21 07:04> Constitutional: Constitutional: Denies chills and Denies fever(s) <Ravindra Victoria MD - Last Filed: 02/25/21 07:04> PMFSH Past Medical History Medical History: Medical History GERD (gastroesophageal reflux disease) Nausea Pancreatitis Seizure after head injury Tobacco abuse <Ravindra Victoria MD - Last Filed: 02/25/21 07:04> Surgical History Surgical History: Surgical History H/O shoulder surgery right H/O: hysterectomy History of ankle surgery right History of hip surgery right Hx of cholecystectomy Previous back surgery <Ravindra Victoria MD - Last Filed: 02/25/21 07:04> Family History Family History: Family History Father , age 67 Cancer Testicular cancer Osteoporosis Mother , age 70 Malignant melanoma Diabetes mellitus <Ravindra Victoria MD - Last Filed: 02/25/21 07:04> Social History Social History: Social History (Reviewed 02/25/21 @ 06:40 by Ravindra
[2021-02-25 06:37] LABS: Alanine Aminotransferase 21 U/L (14-59); Albumin Level 3.6 g/dL (3.4-5.0); Alkaline Phosphatase 120 U/L (46-116); Anion Gap 10 mmol/L (8-16); Aspartate Amino Transferase 21 U/L (15-37); Bilirubin,Total 0.2 mg/dL (0.00-1.00); Blood Urea Nitrogen 11 mg/dL (7-18); Calcium 9.2 mg/dL (8.5-10.1); Carbon Dioxide 27 mmol/L (21-32); Chloride 102 mmol/L (98-108); Estimated CRCL calculation 45 ml/min; Estimated Glomerular Filt Rate > 60; Glucose 171 mg/dL (70-99); Lipase 29 U/L (73-393); Osmolality Calculated 291 mOsm/kg (285-295); Potassium 4.2 mmol/L (3.5-5.1); Sodium 139 mmol/L (136-145); Total Protein 7.6 g/dL (6.4-8.2)
[2021-02-25 06:38] LABS: CRP < 0.5 mg/dL (0.0-0.9)
[2021-02-25 06:42] LABS: Lactic Acid Reflex 1.3 mmol/L (0.4-2.0)
[2021-02-25] MEDS: KETOROLAC (*BKC) 60 MG/2 ML VIAL IM (08:20)
[2021-02-25 08:24] VITALS: BP 146/99; PULSE 76; RESP 16; TEMP 36.2; O2SAT 96
== END 2021-02-25 08:41 | disposition home or self-care (01) ==
PROVIDERS: Emergency Provider Emergency Medicine; PCP Family Medicine
DX: K20.90 Esophagitis, unspecified without bleeding (principal); K86.1 Other chronic pancreatitis; F17.200 Nicotine dependence, unspecified, uncomplicated
CPT/HCPCS: 36415; 74177; 80053; 83605; 83690; 85025; 86140; 96361; 96372; 96374; 99283; 99284; J1170; J1885; J7030; Q9967

== ENCOUNTER 2021-05-02 15:38 | Observation (INO) | payer OTHER, SELFPAY ==
--- NOTE | ~2021-05-02 | CT_ITS ---
EXAMINATION: CT abdomen pelvis w con DATE: 05/02/2021 18:11 INDICATION: Epigastric abdominal pain TECHNIQUE: Computed tomography (CT) of the abdomen and pelvis was performed with 100 cc Omnipaque 350 intravenous contrast. The dose-length product was 266.77 mGy-cm. Automated exposure control and iter ative reconstruction technique were employed. COMPARISON: CT dated 02/25/2021 FINDINGS: Lung bases are unremarkable. Heart size normal. No significant pleural or pericardial effus ion. There are calcified granulomas of the spleen. There are are coarse pancreatic calcifications, co nsistent with chronic pancreatitis. There are cholecystectomy clips. The adrenal glands and kidneys a re unremarkable. There is mild thickening of the gastric antrum and pylorus, suspicious for gastritis . There are fluid-filled distended small bowel loops in the lower abdomen and pelvis, possibly ileus or enteritis. No free air or free fluid. No lymphadenopathy. There are chronic compression deformitie s of L3 and L4. There is a chronic burst fracture of T11 transfixed by pedicle screws extending from T10-L2. IMPRESSION: 1. Mild thickening of the gastric antrum and pylorus, suspicious for gastritis. Mild thickening of th e distal esophagus which may represent esophagitis. 2: Mildly distended fluid-filled distal small bowel loops which may represent ileus or enteritis. No obstruction. 3: Chronic pancreatitis. Reviewed, dictated and finalized at location A. EATION FACILITY MANAGER IMPRESSION: 1. Mild thickening of the gastric antrum and pylorus, suspicious for gastritis. Mild thickening of the distal esophagus which may represent esophagitis. 2: Mildly distended fluid-filled distal small bowel loops which may represent i leus or enteritis. No obstruction. 3: Chronic pancreatitis.
--- NOTE | ~2021-05-02 | CT_ITS ---
EXAMINATION: CT brain wo con DATE: 05/02/2021 18:12 INDICATION: Confusion. No status change. TECHNIQUE: Computed tomography (CT) of the head was performed without intravenous contrast. The dose- length product was 605.33 mGy-cm. Automated exposure control and iterative reconstruction technique w ere employed. COMPARISON: CT dated 02/26/2020 FINDINGS: No acute intracranial hemorrhage, infarction, mass or mass effect. No ventriculomegaly or m idline shift. Basilar cisterns are patent. There are scattered mild periventricular and subcortical w braxton matter changes, most likely related to small vessel ischemic disease (microangiopathy). Paranasa l sinuses and mastoids are pneumatized. No depressed skull fractures. IMPRESSION: 1. No acute intracranial abnormality. 2: Chronic age-related findings. Reviewed, dictated and finalized at location A. LES AND REPAIRS PREPARER
--- NOTE | ~2021-05-02 | XR_ITS ---
XR chest 1V portable 05/02/2021 18:14 Indication: Wheezing, cough and confusion Procedure: 2 view chest Comparison: 12/09/2018. Findings: Heart size normal. The lungs are hyperinflated which is consistent with, but not diagnostic of chronic obstructive pulmonary disease. No focal air space disease, pulmonary edema, pleural effus ion or suspected pneumothorax. There are spinal rods overlying the lower thoracic spine. There are ch olecystectomy clips. Partially visualized screws in the right humerus proximally. Impression: 1: No acute cardiopulmonary disease. Reviewed, dictated and finalized at location A. NSKEEPER SUPERVISOR Impression: 1: No acute cardiopulmonary disease.
[2021-05-02 15:49] VITALS: BP 132/97; PULSE 120; RESP 18; TEMP 36.4; O2SAT 98
--- NOTE | 2021-05-02 16:24 | ED.ABDPAIN ---
HPI - Abdominal Pain General Chief Complaint: Abdominal Pain Stated Complaint: amb Time Seen by Provider: 05/02/21 15:41 Source: patient and RN notes reviewed Limitations: no limitations History of Present Illness MD elicited complaint: abdominal pain Pertinent past history: gastritis and other (pancreatitis) Onset (ago): day(s) (1) Pain Consistency: constant Location: epigastric Severity: mild Pain scale (0-10): 5 Quality: cramping, aching and dull Radiation: none Migration to: no migration Exacerbating factors: nothing Relieving factors: nothing Associated symptoms: nausea and vomiting Related Data Home Medications Medication Instructions Recorded Confirmed amitriptyline 100 mg PO HS 04/15/20 05/02/21 amitriptyline 100 mg PO DAILY 05/02/21 05/02/21 eszopiclone 2 mg PO DAILY 05/02/21 05/02/21 Allergies Allergy/AdvReac Type Severity Reaction Status Date / Time aspirin Allergy Unknown Unknown Verified 05/02/21 16:03 codeine Allergy Unknown Rash,Unknow Verified 05/02/21 16:03 n Penicillins Allergy Unknown Unknown Verified 05/02/21 16:03 Sulfa (Sulfonamide Allergy Unknown Unknown Verified 05/02/21 16:03 Antibiotics) acetaminophen [From Tylenol] Allergy Hives Verified 05/02/21 16:03 Review of Systems Review of Systems: All systems reviewed & are unremarkable except as noted in HPI and below PMFSH Past Medical History Medical History GERD (gastroesophageal reflux disease) Nausea Pancreatitis 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 Her son Sonny is the durable power insurance attorney for healthcare. Patient is a full code. The patient continues to smoke 1 pack a cigarettes in a week. She does occasionally use marijuana no other illicit drugs. She denies any alcohol she stated the last time she drink any alcohol was September of last year when she was at a barbecue. Smoking packs per day: 0.3 Smoking cigarettes per day: 6.0 Years smoked: 20 Smoking pack-years: 6.00 Smoking status: Current every day smoker Tobacco type: cigarettes Second hand tobacco smoke exposure: No Alcohol intake: former Substance use: never Substance use type: marijuana Other substance usage details: a few weeks ago when she was nauseous she tried her son's. Gender identity (if verbalized by the patient): Female Sexual Orientation (if Verbalized by the Patient): Straight or Heterosexual Spiritual care concerns: No Agree to blood products: Yes Exam Const: General: no acute distress and alert Nutritional Appearance: thin Orientation/consciousness: patient oriented x3 Limitations: no limitations HENMT: Head: normal to inspection Ears: external ears normal, TM's normal bilaterally and EAC's normal General nose exam: Normal external nose present and Normal nares present Face and sinus: normal facial exam and sinuses nontender Mouth: Yes lip normal and Yes moist mucous membranes Throat: posterior oropharynx normal Eyes: Conjunctivae: conjunctivae normal Pupils: Equal, round and reactive pupils present EOM: EOMs intact bilaterally Neck: Neck: normal visual inspection and no lymphadenopathy Other: supple Chest: Chest palpation & inspection: normal inspection of the chest Resp: Effort & Inspection
[2021-05-02] MEDS: KETOROLAC (*BKC) 60 MG/2 ML VIAL IM (16:42)
[2021-05-02] MEDS: ONDANSETRON INJ 4 MG/2 ML VIAL IV PUSH (16:42)
[2021-05-02] MEDS: PANTOPRAZOLE SODIUM IV 40 MG VIAL IV PUSH (16:42)
[2021-05-02] MEDS: SODIUM CHLORIDE 0.9% IV 1,000 ML 999 ML IV CONT (16:43)
--- NOTE | 2021-05-02 16:50 | ECG_ITS ---
Measurements Intervals [place] Rate: 94 P: 5 NM: 172 QRS: 4 QRSD: 79 T: 62 QT: 353 QTc: 444 Interpretive Statements SIGNIFICANT BASELINE ARTIFACT ?SINUS RHYTHM Electronically Signed On 05-04-2021 12:13:14 SPECIAL WARFARE COMBATANT CREWMAN by Rayray Delcid M.D.
[2021-05-02 16:59] LABS: Basophils Absolute Auto 0.01 K/mm3 (0.00-0.10); Basophils Percent Auto 0.2 % (0.0-1.0); Eosinophils Absolute Auto 0.03 K/mm3 (0.02-0.50); Eosinophils Percent Auto 0.6 % (1.0-6.0); Hematocrit 44.3 % (35.0-49.0); Hemoglobin 14.2 g/dL (12.0-15.0); Immature Granulocyte Absolute 0.02 K/mm3 (0.00-0.00); Immature Granulocyte Percent A 0.4 % (0.0-0.0); Lymphocytes Absolute Auto 1.23 K/mm3 (1.10-4.50); Lymphocytes Percent Auto 23.9 % (18.0-42.0); Mean Corpuscular HGB Conc 32.1 g/dL (32.0-36.0); Mean Corpuscular Hemoglobin 29.8 pg (27.0-31.0); Mean Corpuscular Volume 92.9 fL (78.0-102.0); Mean Platelet Volume 9.2 fl (9.2-11.8); Monocytes Absolute Auto 0.31 K/mm3 (0.10-0.90); Neutrophils Absolute Auto 3.5 K/mm3 (1.7-7.2); Neutrophils Percent Auto 68.9 % (50.0-70.0); Platelet Count Result 164 K/mm3 (150-420); Red Blood Count 4.77 M/mm3 (4.20-5.40); Red Cell Distribution Width 15.1 % (11.6-14.4); White Blood Count 5.1 K/mm3 (4.8-10.8)
[2021-05-02] MEDS: ALBUTEROL SULFATE (*SP) INHALER 4 PUFF INHALATION (17:19)
[2021-05-02] MEDS: methylPREDNISolone SOD SUCC 125 MG VIAL IV PUSH (17:19)
[2021-05-02 17:25] LABS: Alanine Aminotransferase 13 U/L (14-59); Albumin Level 3.6 g/dL (3.4-5.0); Alkaline Phosphatase 98 U/L (46-116); Anion Gap 12 mmol/L (8-16); Aspartate Amino Transferase 12 U/L (15-37); Bilirubin,Total 0.3 mg/dL (0.00-1.00); Blood Urea Nitrogen 19 mg/dL (7-18); Calcium 8.8 mg/dL (8.5-10.1); Carbon Dioxide 27 mmol/L (21-32); Chloride 99 mmol/L (98-108); Estimated CRCL calculation 34 ml/min; Estimated Glomerular Filt Rate 46; Ethanol < 3 mg/dL (0-6); Glucose 109 mg/dL (70-99); Lipase 39 U/L (73-393); Osmolality Calculated 289 mOsm/kg (285-295); Potassium 3.2 mmol/L (3.5-5.1); Sodium 138 mmol/L (136-145); Total Protein 7.4 g/dL (6.4-8.2)
[2021-05-02 20:00] VITALS: BP 144/99; PULSE 83; RESP 20; TEMP 36.1; O2SAT 90
[2021-05-02] MEDS: KETOROLAC 15 MG/ML VIAL (*BKC) IV PUSH (20:30)
[2021-05-02 20:31] VITALS: BP 121/89; PULSE 90; RESP 16; O2SAT 94
[2021-05-02] MEDS: MELATONIN 3 MG TABLET PO (20:49)
[2021-05-02] MEDS: POTASSIUM CHLORIDE 20 MEQ TABLET 40 MEQ PO (20:49)
[2021-05-02] MEDS: SODIUM CHLORIDE 0.9% IV 1,000 ML 100 ML IV CONT (20:49)
--- NOTE | 2021-05-02 21:23 | PC.NURSE ---
Patient admitted to room 206 from the ER, is alert and oriented times 2, pain med per orders, orineted to room, call light and surroundings.
[2021-05-02 21:26] VITALS: BMI 16.6
[2021-05-02 23:59] VITALS: BP 112/78; PULSE 79; RESP 18; TEMP 35.9; O2SAT 90
[2021-05-03] MEDS: ONDANSETRON INJ 4 MG/2 ML VIAL IV PUSH (01:09)
[2021-05-03] MEDS: KETOROLAC 15 MG/ML VIAL (*BKC) IV PUSH ×2 (02:24→11:20)
[2021-05-03 04:00] VITALS: BP 127/94; PULSE 88; RESP 20; TEMP 36.1; O2SAT 91
[2021-05-03 04:58] LABS: Appearance Urine Clear (Clear); Bilirubin Urine Negative (Negative); Color Urine Light Yellow (Yellow); Glucose Urine UA Negative (Negative); Ketones Urine 1+ (Negative); Leukocyte Esterase Ur Negative LEU/UL (Negative); Nitrate Urine Negative (Negative); Protein Urine Negative (Negative); Urobilinogen Urine 0.2 mg/dL (0.2-1.0); pH Urine 5.5 (5.0-8.0)
[2021-05-03 05:04] LABS: Amphetamine Screen Urine Negative (Negative); Barbiturate Screen Urine Negative (Negative); Benzodiazepines Screen Urine Negative (Negative); Cannabinoid Screen Urine Positive (Negative); Cocaine Screen Urine Negative (Negative); Methadone Screen Urine Negative (Negative); Opiate Screen Urine Negative (Negative); Phencyclidine Screen Urine Negative (Negative)
[2021-05-03 05:25] LABS: Hematocrit 43.9 % (35.0-49.0); Hemoglobin 13.7 g/dL (12.0-15.0); Immature Granulocyte Absolute 0.02 K/mm3 (0.00-0.00); Immature Granulocyte Percent A 0.7 % (0.0-0.0); Lymphocytes Absolute Auto 0.52 K/mm3 (1.10-4.50); Lymphocytes Percent Auto 18.6 % (18.0-42.0); Mean Corpuscular HGB Conc 31.2 g/dL (32.0-36.0); Mean Corpuscular Hemoglobin 29.7 pg (27.0-31.0); Mean Platelet Volume 9.2 fl (9.2-11.8); Monocytes Absolute Auto 0.05 K/mm3 (0.10-0.90); Monocytes Percent Auto 1.8 % (2.0-11.0); Neutrophils Absolute Auto 2.2 K/mm3 (1.7-7.2); Neutrophils Percent Auto 78.9 % (50.0-70.0); Platelet Count Result 149 K/mm3 (150-420); Red Blood Count 4.62 M/mm3 (4.20-5.40); Red Cell Distribution Width 15.1 % (11.6-14.4); White Blood Count 2.8 K/mm3 (4.8-10.8)
[2021-05-03 05:27] LABS: Add Urine Microscopic? YES; Blood Urine Trace-lysed (Negative)
[2021-05-03 05:28] LABS: Mucus Urine Few /lpf; RBC Urine 0-2 /hpf (0-2); Squamous Epithelial Cell Urine Moderate /hpf (Few)
[2021-05-03 05:36] LABS: Anion Gap 13 mmol/L (8-16); Blood Urea Nitrogen 24 mg/dL (7-18); Calcium 8.7 mg/dL (8.5-10.1); Carbon Dioxide 25 mmol/L (21-32); Chloride 101 mmol/L (98-108); Estimated CRCL calculation 37 ml/min; Estimated Glomerular Filt Rate 52; Glucose 109 mg/dL (70-99); Osmolality Calculated 293 mOsm/kg (285-295); Potassium 4.3 mmol/L (3.5-5.1); Sodium 139 mmol/L (136-145)
[2021-05-03 07:40] VITALS: BP 142/90; PULSE 92; RESP 18; TEMP 36.5; O2SAT 92
[2021-05-03] MEDS: MORPHINE SULFATE (*CRX) 2 MG/ML INJ IV PUSH (07:45)
--- NOTE | 2021-05-03 08:16 | PM.SD2 ---
Same Day Admit/Disch: HPI History of Present Illness Chief complaint: GASTRISTIS Narrative: Heather Carpio is a 65 year old female with a past medical history for head trauma, seizure, chronic epigastric abdominal pain, chronic pancreatitis, tobacco dependence. Patient presented to the emergency room due to worsening epigastric pain patient is burning in quality radiates to the back started over the weekend and has not relent patient has not been able to eat or drink has had nausea and vomiting no chills no fevers.no cough no sputum production patient smokes 1/2 cigarettes every day with her cough in the morning, she is has been worked up extensively by GI. Patient is seen by Dr. Collier in [facility]. Patient received toradol in the emergency room and it did is relieved her pain. She was also found to be hypertensive in emergency room. Preliminary workup was significant for a CT of abdomen and pelvis that demonstrated chronic pancreatitis, emphysema. Mild thickening of the gastric antrum and pylorus, suspicious for gastritis. Mild thickening of the distal esophagus which may represent esophagitis. Mildly distended fluid-filled distal small bowel loops which may represent ileus or enteritis. No obstruction w Chronic pancreatitis. 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 Her son Sonny is the durable power rivet heater for healthcare. Patient is a full code. The patient continues to smoke 1 pack a cigarettes in a week. She does occasionally use marijuana no other illicit drugs. She denies any alcohol she stated the last time she drink any alcohol was September of last year when she was at a [employer]. Smoking packs per day: 0.3 Smoking cigarettes per day: 6.0 Years smoked: 20 Smoking pack-years: 6.00 Smoking status: Current every day smoker Tobacco type: cigarettes Second hand tobacco smoke exposure: No Alcohol intake: unknown Substance use: unknown Substance use type: marijuana Other substance usage details: a few weeks ago when she was nauseous she tried her son's. Gender identity (if verbalized by the patient): Female Sexual Orientation (if Verbalized by the Patient): Straight or Heterosexual Spiritual care concerns: No Agree to blood products: Yes Same Day Admit/Disch: Med Pre-admit Medications Home Medications Medication Instructions Recorded Confirmed Type amitriptyline 100 mg PO HS 04/15/20 05/02/21 History amitriptyline 100 mg PO DAILY 05/02/21 05/02/21 History eszopiclone 2 mg PO DAILY 05/02/21 05/02/21 History ondansetron 4 mg PO Q8H PRN #14 tablet 05/03/21 Rx pantoprazole [Protonix] 20 mg PO QAM 28 Days #28 tablet 05/03/21 Rx Exam Narrative: GENERAL:Well-appearing, malnourished, and in no acute distress. HEAD:Normocephalic, EYES: PERRLA and EOMI. ENT: Nares clear, no rhinorrhea or epistaxis. Mucous membranes moist. NECK: Supple. CHEST: Clear to auscultation. No respiratory distress. HEART: Regular rate and rhythm.. Normal peripheral pulses. ABDOMEN: Soft, slightly tender, nondistended, normal active bowel sounds. EXTREMITIES: Normal range of motion. No edema. SKIN: Warm, dry, n
[2021-05-03] MEDS: POTASSIUM CHLORIDE 20 MEQ TABLET PO (08:53)
[2021-05-03] MEDS: PANTOPRAZOLE SODIUM IV 40 MG VIAL IV PUSH (08:54)
[2021-05-03 12:00] VITALS: BP 145/89; PULSE 94; RESP 18; TEMP 36.4; O2SAT 91
--- NOTE | 2021-05-03 14:50 | PC.NURSE ---
Transport here to take patient home. All discharge instructions and education reviewed with patient. Patient states understanding. IV site removed, tip intact. Dressing applied to site. Medications sent home with patient. Patient accompanied to front door via wheelchair by this nurse. Patient left via medical transport car.
--- NOTE | 2021-05-04 14:10 | PC.NURSE ---
Discharge call back completed, states received information and understood information, over all care was ok, states one RN was not very nice, states she told her she was faking it, still having some abdominal pain and not sure if she will return or not, advised to keep scheduled appointment on the and call the office if feel needs to be seen sooner, or use ER for abdominal pain or vomiting if she felt she needed to.
== END 2021-05-03 14:50 | disposition home or self-care (01) ==
LOC: CHSED 19:48 → CHS2ND 20:02
PROVIDERS: Nurse Practitioner Family; Admitting Provider Internal Medicine; Emergency Provider Emergency Medicine; PCP Family Medicine; Visit Provider Internal Medicine
DX: K29.00 Acute gastritis without bleeding (principal); K21.00 Gastro-esophageal reflux disease with esophagitis, without bleeding; K86.1 Other chronic pancreatitis; E86.0 Dehydration; R56.9 Unspecified convulsions; Z87.820 Personal history of traumatic brain injury; F17.210 Nicotine dependence, cigarettes, uncomplicated
CPT/HCPCS: 36415; 70450; 71045; 74177; 80048; 80053; 80307; 81001; 83605; 83690; 85025; 93005; 96361; 96372; 96374; 96375; 96376; 97161; 97165; 99285; A9270; C9113; G0378; J1885; J2270; J2405; J2930; J7030; Q9967

== ENCOUNTER 2021-05-05 11:11 | Emergency (ER) | payer OTHER, SELFPAY ==
[2021-05-05 11:17] VITALS: BP 216/147; PULSE 97; RESP 20; TEMP 36.6; O2SAT 99
--- NOTE | 2021-05-05 11:24 | ED.ABDPAIN ---
HPI - Abdominal Pain General Chief Complaint: Nausea/Vomiting/Diarrhea Stated Complaint: ambulance Time Seen by Provider: 05/05/21 11:24 Source: patient, EMS and RN notes reviewed Mode of arrival: EMS Limitations: no limitations History of Present Illness MD elicited complaint: abdominal pain (chronic pancreatitis) Onset (ago): hour(s) (1) Pain Consistency: constant Location: epigastric Severity: severe Quality: aching and burning Radiation: none Migration to: no migration Exacerbating factors: eating Relieving factors: nothing Context: confirms history of similar episodes Associated symptoms: nausea, vomiting and anorexia Related Data Home Medications Medication Instructions Recorded Confirmed amitriptyline 100 mg PO DAILY 05/02/21 05/05/21 eszopiclone 2 mg PO DAILY 05/02/21 05/05/21 Allergies Allergy/AdvReac Type Severity Reaction Status Date / Time aspirin Allergy Unknown Unknown Verified 05/05/21 11:19 codeine Allergy Unknown Rash,Unknow Verified 05/05/21 11:19 n Penicillins Allergy Unknown Unknown Verified 05/05/21 11:19 Sulfa (Sulfonamide Allergy Unknown Unknown Verified 05/05/21 11:19 Antibiotics) acetaminophen [From Tylenol] Allergy Hives Verified 05/05/21 11:19 Review of Systems Review of Systems: All systems reviewed & are unremarkable except as noted in HPI and below Constitutional: Constitutional: Denies chills and Denies fever(s) Gastrointestinal: Gastrointestinal: Reports as per HPI Genitourinary: Genitourinary: Denies hematuria, Denies nocturia, Denies dysuria and Denies urinary incontinence [facility] Past Medical History Medical History GERD (gastroesophageal reflux disease) Nausea Pancreatitis 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 Her son Sonny is the durable power tax associate attorney for healthcare. Patient is a full code. The patient continues to smoke 1 pack a cigarettes in a week. She does occasionally use marijuana no other illicit drugs. She denies any alcohol she stated the last time she drink any alcohol was September of last year when she was at a barbecue. Smoking packs per day: 0.3 Smoking cigarettes per day: 6.0 Years smoked: 20 Smoking pack-years: 6.00 Smoking status: Current every day smoker Tobacco type: cigarettes Second hand tobacco smoke exposure: No Alcohol intake: unknown Substance use: unknown Substance use type: marijuana Other substance usage details: a few weeks ago when she was nauseous she tried her son's. Gender identity (if verbalized by the patient): Female Sexual Orientation (if Verbalized by the Patient): Straight or Heterosexual Spiritual care concerns: No Agree to blood products: Yes Exam Const: General: no acute distress, alert and ill appearing chronically Nutritional Appearance: thin Orientation/consciousness: patient oriented x3 HENMT: Head: normal to inspection Ears: external ears normal Face and sinus: normal facial exam Mouth: Yes moist mucous membranes Eyes: Conjunctivae: conjunctivae normal Pupils: Equal, round and reactive pupils present EOM: EOMs intact bilaterally Neck: Neck: normal visual inspection Resp: Effort & Inspection: normal respiratory effort Auscultation: clear to auscultation bilaterally Cardio:
[2021-05-05 12:13] LABS: Basophils Absolute Auto 0.01 K/mm3 (0.00-0.10); Basophils Percent Auto 0.2 % (0.0-1.0); Hematocrit 47.4 % (35.0-49.0); Hemoglobin 15.7 g/dL (12.0-15.0); Immature Granulocyte Absolute 0.02 K/mm3 (0.00-0.00); Immature Granulocyte Percent A 0.4 % (0.0-0.0); Lymphocytes Absolute Auto 0.67 K/mm3 (1.10-4.50); Lymphocytes Percent Auto 12.2 % (18.0-42.0); Mean Corpuscular HGB Conc 33.1 g/dL (32.0-36.0); Mean Corpuscular Hemoglobin 29.9 pg (27.0-31.0); Mean Corpuscular Volume 90.3 fL (78.0-102.0); Mean Platelet Volume 9.1 fl (9.2-11.8); Monocytes Absolute Auto 0.26 K/mm3 (0.10-0.90); Monocytes Percent Auto 4.7 % (2.0-11.0); Neutrophils Absolute Auto 4.5 K/mm3 (1.7-7.2); Neutrophils Percent Auto 82.5 % (50.0-70.0); Platelet Count Result 172 K/mm3 (150-420); Red Blood Count 5.25 M/mm3 (4.20-5.40); White Blood Count 5.5 K/mm3 (4.8-10.8)
[2021-05-05 12:31] VITALS: BP 198/100
[2021-05-05 12:33] LABS: Alanine Aminotransferase 11 U/L (14-59); Albumin Level 4.2 g/dL (3.4-5.0); Alkaline Phosphatase 106 U/L (46-116); Anion Gap 11 mmol/L (8-16); Aspartate Amino Transferase < 10 U/L (15-37); Bilirubin,Total 0.4 mg/dL (0.00-1.00); Blood Urea Nitrogen 15 mg/dL (7-18); Calcium 9.7 mg/dL (8.5-10.1); Carbon Dioxide 31 mmol/L (21-32); Chloride 98 mmol/L (98-108); Estimated CRCL calculation 48 ml/min; Estimated Glomerular Filt Rate > 60; Glucose 125 mg/dL (70-99); Lipase 59 U/L (73-393); Osmolality Calculated 291 mOsm/kg (285-295); Potassium 3.5 mmol/L (3.5-5.1); Sodium 140 mmol/L (136-145); Total Protein 8.2 g/dL (6.4-8.2)
[2021-05-05 12:34] LABS: Amylase 25 U/L (25-115)
[2021-05-05] MEDS: ONDANSETRON INJ 4 MG/2 ML VIAL IV PUSH (12:42)
[2021-05-05] MEDS: hydrALAZINE HCL 20 MG/ML VIAL 10 MG IV PUSH (12:44)
[2021-05-05] MEDS: KETOROLAC 15 MG/ML VIAL (*BKC) IV PUSH (12:47)
[2021-05-05] MEDS: MAG HYDROX/ALUMINUM HYD/SIMETH 30 ML, PHENobarb/HYOSCY/ATROPINE/SCOP 32.4 MG, LIDOCAINE... PO (12:48)
[2021-05-05 12:58] VITALS: BP 143/95; PULSE 109; RESP 18; O2SAT 93
[2021-05-05 13:07] LABS: Appearance Urine Clear (Clear); Color Urine Yellow (Yellow); Glucose Urine UA Negative (Negative); Protein Urine Trace (Negative)
[2021-05-05 13:08] LABS: Add Urine Microscopic? YES; Bacteria Urine Trace /hpf; Bilirubin Urine Negative (Negative); Blood Urine Negative (Negative); Ketones Urine Negative (Negative); Leukocyte Esterase Ur Negative LEU/UL (Negative); Nitrate Urine Negative (Negative); RBC Urine 0-2 /hpf (0-2); Squamous Epithelial Cell Urine Few /hpf (Few); Urobilinogen Urine 0.2 mg/dL (0.2-1.0); WBC Urine None seen /hpf (0-3)
[2021-05-05 13:27] VITALS: BP 107/78; PULSE 103; RESP 18; O2SAT 96
[2021-05-05 14:37] VITALS: BP 117/88
== END 2021-05-05 15:04 | disposition home or self-care (01) ==
PROVIDERS: Emergency Provider Emergency Medicine; PCP Family Medicine
DX: K86.1 Other chronic pancreatitis (principal); K21.9 Gastro-esophageal reflux disease without esophagitis; F17.200 Nicotine dependence, unspecified, uncomplicated
CPT/HCPCS: 36415; 80053; 81001; 82150; 83690; 85025; 86140; 96374; 96375; 99284; A9270; J0360; J1885; J2405

== ENCOUNTER 2021-05-15 09:31 | Emergency (ER) | payer OTHER, MEDICAID, SELFPAY ==
--- NOTE | ~2021-05-15 | CT_ITS ---
EXAMINATION: CT abdomen pelvis w con DATE: 05/15/2021 11:27 INDICATION: Abdomen pain TECHNIQUE: Computed tomography (CT) of the abdomen and pelvis was performed with 100 cc Omnipaque 350 intravenous contrast. The dose-length product was 245.96 mGy-cm. Automated exposure control and iter ative reconstruction technique were employed. COMPARISON: None CT dated 05/02/2021. FINDINGS: There is a 6 mm right lower lobe nodule, image 16. Heart size is normal. No significant ple ural or pericardial effusion. Small hiatal hernia. There is atherosclerosis of the aorta without aneu rysm. Status post cholecystectomy with expected prominence of the bile ducts. There is chronic pancre atitis. There are calcified granulomas of the spleen. Nonobstructive bowel gas pattern. No free air o r free fluid. There are chronic compression fractures of L3 and L4. There is a chronic burst fracture of T11 with spinal fusion at T10-L2. There is scoliosis. There is mild diffuse subcutaneous edema. N o significant gastric wall thickening is identified on the current study. IMPRESSION: 1. No acute abdominal abnormality. 2: Right lower lobe nodule measuring 6 mm, likely benign. Follow-up low dose CT chest in 6 months rec ommended. 3: Chronic pancreatitis. 4.: Small hiatal hernia with thickening of the distal esophagus, concerning for reflux esophagitis. Reviewed, dictated and finalized at location A. IMPRESSION: 1. No acute abdominal abnormality. 2: Right lower lobe nodule measuring 6 mm, likely benign. Follow-up low dose CT chest in 6 months recommended. 3: Chronic pancreatitis. 4.: Small hiatal hernia with thickening of the distal esophagus, concerning for reflux esophagitis.
[2021-05-15 09:28] VITALS: BP 165/107; PULSE 106; RESP 18; TEMP 36.2; O2SAT 98
--- NOTE | 2021-05-15 09:38 | ED.GENADULT ---
HPI - General Adult General Chief complaint: Nausea/Vomiting/Diarrhea Stated complaint: N/V, ABD PAIN Source: RN notes reviewed History of Present Illness HPI narrative: Patient presents emergency department from home via EMS for abdominal pain. Patient states abdominal pain began yesterday pain is located across the upper abdomen described as sharp and stabbing. Associate with nausea vomiting. Patient states she has a history of chronic pancreatitis and is followed by a specialist in [place] states this feels like her normal symptoms. She denies any fevers or chills, chest pain shortness of breath or any other symptoms. Patient was given Zofran in route Related Data Home Medications Medication Instructions Recorded Confirmed amitriptyline 100 mg PO DAILY 05/02/21 05/05/21 eszopiclone 2 mg PO DAILY 05/02/21 05/05/21 Allergies Allergy/AdvReac Type Severity Reaction Status Date / Time aspirin Allergy Unknown Unknown Verified 05/15/21 09:35 codeine Allergy Unknown Rash,Unknow Verified 05/15/21 09:35 n Penicillins Allergy Unknown Unknown Verified 05/15/21 09:35 Sulfa (Sulfonamide Allergy Unknown Unknown Verified 05/15/21 09:35 Antibiotics) acetaminophen [From Tylenol] Allergy Hives Verified 05/15/21 09:35 Review of Systems Review of Systems: Gen.: Denies fevers or chills ENT: Denies congestion Respiratory: Denies shortness of breath or cough CV: Denies chest pain or palpitations GI: See HPI Musculoskeletal: Denies back pain or muscle pain Neuro: Denies numbness, tingling, weakness or focal weakness Skin: Denies rash Except as documented, all other systems reviewed and negative [facility] Past Medical History Medical History GERD (gastroesophageal reflux disease) Nausea Pancreatitis 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 Her son Sonny is the durable power mergers and acquisitions attorney for healthcare. Patient is a full code. The patient continues to smoke 1 pack a cigarettes in a week. She does occasionally use marijuana no other illicit drugs. She denies any alcohol she stated the last time she drink any alcohol was September of last year when she was at a barbecue. Smoking packs per day: 0.3 Smoking cigarettes per day: 6.0 Years smoked: 20 Smoking pack-years: 6.00 Smoking status: Current every day smoker Tobacco type: cigarettes Second hand tobacco smoke exposure: No Alcohol intake: unknown Substance use: unknown Substance use type: marijuana Other substance usage details: a few weeks ago when she was nauseous she tried her son's. Gender identity (if verbalized by the patient): Female Sexual Orientation (if Verbalized by the Patient): Straight or Heterosexual Spiritual care concerns: No Agree to blood products: Yes Exam Narrative: APPEARANCE: No acute distress, nontoxic, resting in bed HEENT: Normocephalic, atraumatic, OMM RESPIRATORY: No respiratory distress, clear to auscultation bilaterally with no rhonchi wheezing or rales CARDIOVASCULAR: RRR s murmur ABDOMINAL: Soft nondistended tender palpation epigastric and right upper quadrant left upper quadrant no tenderness right lower quadrant left lower quadrant no rebound or guarding MUSCULOSKELETAl: Moves all extremities. No clubbing, cyanosis or
[2021-05-15] MEDS: SODIUM CHLORIDE 0.9% IV 1,000 ML 999 ML IV CONT (09:40)
[2021-05-15] MEDS: MORPHINE SULFATE (*CRX) 4 MG/ML INJ IV PUSH (09:48)
[2021-05-15 10:43] LABS: Basophils Percent Auto 0.4 % (0.2-1.2); Eosinophils Percent Auto 0.2 % (0-4.4); Hematocrit 47.4 % (37.0-47.0); Hemoglobin 15.4 g/dL (12.0-15.0); Immature Granulocyte Absolute 0.03 K/mm3 (0.00-0.031); Immature Granulocyte Percent A 0.4 % (0-0.5); Lymphocytes Absolute Auto 1.21 K/mm3 (0.9-3.2); Lymphocytes Percent Auto 14.5 % (18.3-44.2); Mean Corpuscular HGB Conc 32.5 g/dl (32-36); Mean Corpuscular Hemoglobin 30.1 pg (26-34); Mean Corpuscular Volume 92.6 fl (80-100); Mean Platelet Volume 8.7 fl (7.4-10.4); Monocytes Absolute Auto 0.4 K/mm3 (0.1-0.6); Monocytes Percent Auto 4.9 % (2.6-8.5); Neutrophils Absolute Auto 6.6 K/mm3 (1.3-6.7); Neutrophils Percent Auto 79.6 % (45.5-73.1); Platelet Count Result 248 k/mm3 (150-375); Red Blood Count 5.12 M/mm3 (4.2-5.4); Red Cell Distribution Width 15.5 % (11.5-14.5); White Blood Count 8.3 K/mm3 (4.5-10.0)
[2021-05-15] MEDS: HYDROmorphone HCL INJ (*CRX) 1 MG/ML SYR 0.5 MG IV PUSH (10:48)
[2021-05-15 10:53] LABS: Alanine Aminotransferase 15 U/L (4-35); Albumin Level 4.8 g/dL (3.5-5.1); Alkaline Phosphatase 113 U/L (38-126); Anion Gap 11 mmol/L (8-16); Aspartate Amino Transferase 24 U/L (14-36); Bilirubin,Total 0.3 mg/dL (0.2-1.3); Blood Urea Nitrogen 10 mg/dL (7-17); Calcium 9.2 mg/dL (8.4-10.2); Carbon Dioxide 23 mmol/L (22-30); Chloride 102 mmol/L (98-107); Estimated CRCL calculation 70 ml/min; Estimated Glomerular Filt Rate > 60; Glucose 126 mg/dL (65-110); Lipase 40 U/L (23-300); Sodium 136 mmol/L (137-145)
[2021-05-15 11:09] LABS: Add Urine Microscopic? YES; Appearance Urine Clear (Clear); Bilirubin Urine Negative (Negative); Blood Urine 1+ (Negative); Color Urine Yellow (Yellow); Glucose Urine UA Negative (Negative); Ketones Urine Negative (Negative); Leukocyte Esterase Ur Negative LEU/UL (Negative); Mucus Urine Rare /lpf; Nitrate Urine Negative (Negative); Protein Urine 2+ mg/dL (Negative); Specific Grav Ur 1.013 (1.001-1.035); Squamous Epithelial Cell Urine Occasional /hpf (Few); Urobilinogen Urine Negative mg/dL (<2.0); WBC Urine 0-3 /hpf
[2021-05-15 11:51] VITALS: BP 154/91; PULSE 89; RESP 15; O2SAT 97
[2021-05-15] MEDS: PANTOPRAZOLE SODIUM IV 40 MG VIAL IV PUSH (12:25)
[2021-05-15 12:39] VITALS: BP 153/92; PULSE 90; RESP 16; O2SAT 97
== END 2021-05-15 12:50 | disposition home or self-care (01) ==
PROVIDERS: Emergency Provider Emergency Medicine; PCP Family Medicine
DX: R10.13 Epigastric pain (principal); K21.9 Gastro-esophageal reflux disease without esophagitis; F17.210 Nicotine dependence, cigarettes, uncomplicated; K44.9 Diaphragmatic hernia without obstruction or gangrene; K86.1 Other chronic pancreatitis; R91.1 Solitary pulmonary nodule
CPT/HCPCS: 36415; 51701; 74177; 80053; 81001; 83690; 85025; 96361; 96374; 96375; 99284; C9113; J1170; J2270; J7030; Q9967

== ENCOUNTER 2021-05-17 13:28 | Emergency (ER) | payer OTHER, MEDICAID, SELFPAY ==
--- NOTE | ~2021-05-17 | CT_ITS ---
EXAMINATION: CT brain wo con INDICATION: Manic and erratic behavior COMPARISON: 05/02/2021 TECHNIQUE: Standard unenhanced head CT. The dose-length product (DLP) was 681.00 mGy-cm. The mA was a djusted according to patient size. Iterative reconstruction technique was employed. FINDINGS: There is no intracranial hemorrhage, acute infarction, or abnormal mass lesion. There is a chronic small infarct of the left parietal lobe. The ventricles are normal. There is no abnormal mass effect or midline shift. The colvin-white matter differentiation is normal. The basal cisterns are pat ent. The orbits are normal. The paranasal sinuses, mastoids and calvarium are normal. IMPRESSION: 1. 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 Reviewed, dictated and finalized at location B. IMPRESSION: 1. Chronic small infarct of the left parietal lobe without acute intracranial a bnormality.
--- NOTE | 2021-05-17 13:44 | ED.AMS ---
HPI - Altered Mental Status General Stated Complaint: Ambulance Time Seen by Provider: 05/17/21 13:45 Source: patient Related Data Home Medications Medication Instructions Recorded Confirmed amitriptyline 100 mg PO DAILY 05/02/21 05/05/21 eszopiclone 2 mg PO DAILY 05/02/21 05/05/21 Allergies Allergy/AdvReac Type Severity Reaction Status Date / Time aspirin Allergy Unknown Unknown Verified 05/15/21 09:35 codeine Allergy Unknown Rash,Unknow Verified 05/15/21 09:35 n Penicillins Allergy Unknown Unknown Verified 05/15/21 09:35 Sulfa (Sulfonamide Allergy Unknown Unknown Verified 05/15/21 09:35 Antibiotics) acetaminophen [From Tylenol] Allergy Hives Verified 05/15/21 09:35 PMFSH Past Medical History Medical History GERD (gastroesophageal reflux disease) Nausea Pancreatitis 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 Her son Sonny is the durable power attorney law clerk for healthcare. Patient is a full code. The patient continues to smoke 1 pack a cigarettes in a week. She does occasionally use marijuana no other illicit drugs. She denies any alcohol she stated the last time she drink any alcohol was September of last year when she was at a barbecue. Smoking packs per day: 0.3 Smoking cigarettes per day: 6.0 Years smoked: 20 Smoking pack-years: 6.00 Smoking status: Current every day smoker Tobacco type: cigarettes Second hand tobacco smoke exposure: No Alcohol intake: unknown Substance use: unknown Substance use type: marijuana Other substance usage details: a few weeks ago when she was nauseous she tried her son's. Gender identity (if verbalized by the patient): Female Sexual Orientation (if Verbalized by the Patient): Straight or Heterosexual Spiritual care concerns: No Agree to blood products: Yes Discharge Plan Discharge Prescriptions: No Action amitriptyline 100 mg tablet 100 mg PO DAILY RF: 0 eszopiclone 2 mg tablet 2 mg PO DAILY RF: 0 pantoprazole [Protonix] 20 mg tablet,delayed release (DR/EC) 20 mg PO QAM 28 Days Qty: 28 RF: 0 ondansetron 4 mg tablet,disintegrating 4 mg PO Q8H PRN (Reason: nausea and vomiting) Qty: 14 RF: 0 dicyclomine 20 mg tablet 20 mg PO TID PRN (Reason: spasms) Qty: 30 RF: 0 pantoprazole [Protonix] 40 mg tablet,delayed release (DR/EC) 40 mg PO HS Qty: 14 RF: 0
--- NOTE | 2021-05-17 13:46 | ED.ABDPAIN ---
HPI - Abdominal Pain General Chief Complaint: Abdominal Pain Stated Complaint: Ambulance Time Seen by Provider: 05/17/21 13:45 Source: patient History of Present Illness HPI narrative: 65-year-old female a history of hypertension, chronic pancreatitis with the recurrent epigastric pain, GERD, drug-seeking behavior was brought in by EMS for -- altered mental status. The patient was seen by home health court order the patient was altered and called EMS. Patient denies any mental status she is and she appears alert and oriented. -- Ongoing epigastric pain The patient had similar symptoms and went to the ER 2 days ago to [facility]. And she had a CT of the abdomen and pelvis which revealed hiatal hernia with thickening of the distal esophagus, pancreatitis, right lower lobe nodule without any other acute findings. MD elicited complaint: abdominal pain Onset (ago): unknown ( patient has chronic epigastric pain.) Pain Consistency: constant Location: diffuse and epigastric Severity: severe Quality: aching Radiation: none Migration to: no migration Exacerbating factors: nothing Relieving factors: nothing Associated symptoms: denies other symptoms Related Data Home Medications Medication Instructions Recorded Confirmed amitriptyline 100 mg PO DAILY 05/02/21 05/17/21 Allergies Allergy/AdvReac Type Severity Reaction Status Date / Time aspirin Allergy Unknown Unknown Verified 05/17/21 13:47 codeine Allergy Unknown Rash,Unknow Verified 05/17/21 13:47 n Penicillins Allergy Unknown Unknown Verified 05/17/21 13:47 Sulfa (Sulfonamide Allergy Unknown Unknown Verified 05/17/21 13:47 Antibiotics) acetaminophen [From Tylenol] Allergy Hives Verified 05/17/21 13:47 Review of Systems Review of Systems: All systems reviewed & are unremarkable except as noted in HPI and below Constitutional: Constitutional: Reports as per HPI and Reports no additional constitutional complaints Eyes: Eyes: Reports as per HPI and Reports no additional eye complaints ENT: Reports system reviewed and no additional complaints, except as documented and Reports as per HPI Cardiovascular: Cardiovascular: Reports as per HPI and Reports no additional cardiovascular complaints Respiratory: Respiratory: Reports as per HPI and Reports no additional respiratory complaints Gastrointestinal: Gastrointestinal: Reports as per HPI, Reports abdominal pain and Reports nausea Genitourinary: Genitourinary: Reports no additional female genitourinary complaints Musculoskeletal: Musculoskeletal: Reports no additional musculoskeletal complaints and Reports as per HPI Integumentary/Breasts: Skin/Breast: Reports system reviewed and no additional complaints, except as docu Neurologic: Reports system reviewed and no additional complaints, except as documented and Reports as per HPI Psychiatric: Psychiatric: Reports no additional psychiatric complaints and Reports as per HPI Endocrine: Endocrine: Reports no additional endocrine complaints and Reports as per HPI Hematologic/Lymphatic: Hematologic/Lymphatic: Reports no additional hematologic/lymphatic complaints and Reports as per HPI Allergic/Immunologic: Allergic/Immunologic: Reports no additional allergic/immunologic complaints [facility] Past Medical History Medical History GERD (gastroesophageal reflux disease) Nausea Pancreatitis Seizure after head injury Tobacco abuse Surgical History Surgical History H/O shoulder surgery right H/O: hysterectomy History of ankle surgery right History of hip surgery right Hx of cholecystectomy Previous back surgery Family History Family History Father , age 67 Cancer Testicular cancer Osteoporosis Mother , age 70 Malignant melanoma Diabetes mellitus
[2021-05-17 13:49] VITALS: BP 115/96; PULSE 87; RESP 20; TEMP 36.2; O2SAT 100
--- NOTE | 2021-05-17 14:06 | PC.NURSE ---
Pt aware that ERP has ordered pain medication, but since it is a narcotic it cannot be given unless pt has a ride home. Pt states that she does not have anyone to pick her up. Pt states can't I just get it an lay here for a while? . Pt informed that per hospital policy she must have a ride set up before narcotics can be administered. RN offered to ask ERP to switch the order to a non narcotic medication such as ibuprofen and pt states no, no, no. Ibuprofen doesn't work for me . ERP aware.
[2021-05-17] MEDS: ONDANSETRON HCL ODT 4 MG TABLET PO (14:16)
--- NOTE | 2021-05-17 14:33 | PC.NURSE ---
Spoke with Pt's home health aid, Ashish with pt's permission. He states that either himself or pt's son will pick her up upon discharge. Ashish states that he is concerned for pt's safety at home as she is mentally declining . Ashish believes that pt needs to detox. Ashish informed that pt has pending labs and imaging and RN cannot say at this time if pt will be discharged or admitted, but if pt is discharged he will need to follow up with pt's PCP about his concerns.
[2021-05-17 14:37] LABS: Hematocrit 40.7 % (35.0-49.0); Hemoglobin 13.4 g/dL (12.0-15.0); Mean Corpuscular HGB Conc 32.9 g/dL (32.0-36.0); Mean Corpuscular Hemoglobin 30.7 pg (27.0-31.0); Mean Corpuscular Volume 93.3 fL (78.0-102.0); Mean Platelet Volume 8.8 fl (9.2-11.8); Platelet Count Result 228 K/mm3 (150-420); Red Blood Count 4.36 M/mm3 (4.20-5.40); Red Cell Distribution Width 15.6 % (11.6-14.4); White Blood Count 5.8 K/mm3 (4.8-10.8)
[2021-05-17 14:49] LABS: Anion Gap 6 mmol/L (8-16); Blood Urea Nitrogen 12 mg/dL (7-18); Calcium 9.1 mg/dL (8.5-10.1); Carbon Dioxide 30 mmol/L (21-32); Chloride 98 mmol/L (98-108); Estimated CRCL calculation 44 ml/min; Estimated Glomerular Filt Rate > 60; Glucose 129 mg/dL (70-99); Lipase 39 U/L (73-393); Osmolality Calculated 279 mOsm/kg (285-295); Potassium 3.6 mmol/L (3.5-5.1); Sodium 134 mmol/L (136-145)
[2021-05-17] MEDS: HYDROmorphone HCL INJ (*CRX) 2 MG/ML VIAL 0.5 MG IV PUSH (14:51)
--- NOTE | 2021-05-17 14:53 | PC.NURSE ---
Pt has been ambulatory around room since arriving in ER. Pt appears to have a steady gait. Pt does not seem altered since arriving in ER and has been able to recall multiple phone numbers without difficulty.
--- NOTE | 2021-05-17 15:00 | PC.NURSE ---
Pt called RN to room again stating that her stomach is hurting worse and worse . Pt reminded that she was just given pain medication a few minutes ago. Pt states have you heard of those GI cocktails? Could I get one of those? . ERP aware.
[2021-05-17] MEDS: MAG HYDROX/ALUMINUM HYD/SIMETH 30 ML, PHENobarb/HYOSCY/ATROPINE/SCOP 32.4 MG, LIDOCAINE... PO (15:09)
[2021-05-17 15:23] LABS: Ammonia 14 umol/L (11-32)
[2021-05-17 15:24] LABS: Troponin I < 4.0 ng/L (0.00-60.4)
--- NOTE | 2021-05-17 15:31 | PC.NURSE ---
Pt emr implementation specialist light again. RN to room and pt states I think I'm ready to go . Pt informed that ERP still has to review her test results and then will be in to speak with her about discharge.
--- NOTE | 2021-05-17 15:39 | PC.NURSE ---
Pt now wanting more pain medication. Pt standing in doorway, talking to ERP. ERP attempting to educate pt that pain medication has already been given and cannot be given again in a certain timeframe. Pt angry, saying why don't you have someone come take this IV out of my arm then. Pt returns to room and can be heard saying if you don't have someone I'll take it out myself! . Pt removed IV and then leaves ER and goes into the lobby. Pt attempting to use lobby phone, but keeps calling ER. Pt then seen going into registration kiosk. RN attempted to call pt's home health aid, but there was no answer. Message left. RAJ Gardner was able to contact pt's son, who is going to come pick pt up.
== END 2021-05-17 15:56 | disposition home or self-care (01) ==
PROVIDERS: Emergency Provider Internal Medicine Critical Care Medicine; PCP Family Medicine
DX: R10.13 Epigastric pain (principal); K86.1 Other chronic pancreatitis; R41.82 Altered mental status, unspecified
CPT/HCPCS: 36415; 70450; 80048; 82140; 83690; 84484; 85027; 96374; 99284; A9270; J1170

== ENCOUNTER 2021-05-29 17:37 | Emergency (ER) | payer OTHER, MEDICAID, SELFPAY ==
--- NOTE | ~2021-05-29 | CT_ITS ---
EXAMINATION: CT abdomen pelvis wo con DATE: 05/29/2021 18:28 INDICATION: Epigastric abdominal pain. TECHNIQUE: Computed tomography (CT) of the abdomen and pelvis was performed without intravenous contr ast. Automated exposure control and iterative reconstruction technique were employed. The dose-length product was 220.97 mGy-cm. COMPARISON: CT abdomen and pelvis 05/15/2021 FINDINGS: The visualized portions of the lung bases demonstrate mild atelectasis on the left. There i s mucous plugging in left lower lobe. A calcified left lung nodule is consistent with old granulomato us disease. No pleural effusion. The heart size is normal. There are coronary artery calcifications. No pericardial effusion. Calcifications in the liver and spleen are consistent with old granulomatous disease. There are changes of cholecystectomy. Calcifications in the pancreas are consistent with ch ronic pancreatitis. The adrenal glands are normal. There is a 7 mm hemorrhagic cyst in right kidney. Left kidney is normal. There is a small sliding hiatal hernia. There are no dilated loops of bowel. T he appendix is not visualized. There are no pathologically enlarged lymph nodes. There is no free int raperitoneal fluid. There is an old healed fracture of proximal right femur with internal fixation. T here is a chronic burst fracture of T12. There are changes of posterior fusion procedure from T10 to L2. There are chronic compression fractures of L3 on L4. Partially visualized is a catheter in centra l spinal canal. IMPRESSION: 1. Chronic pancreatitis. 2. Small sliding hiatal hernia. Reviewed, dictated and finalized at location E.
[2021-05-29 17:46] VITALS: BP 138/87; PULSE 108; RESP 16; TEMP 36.3; O2SAT 95
[2021-05-29] MEDS: SODIUM CHLORIDE 0.9% IV 1,000 ML 999 ML IV CONT (17:56)
[2021-05-29] MEDS: ONDANSETRON INJ 4 MG/2 ML VIAL IV PUSH (17:57)
--- NOTE | 2021-05-29 17:58 | ED.ABDPAIN ---
HPI - Abdominal Pain General Chief Complaint: Abdominal Pain Stated Complaint: amb Source: patient and EMS Mode of arrival: EMS Limitations: no limitations History of Present Illness HPI narrative: this is a 65-year-old female presents via EMS abdominal pain and some nausea with no vomiting patient has history of pancreatitis currently does not drink alcohol, there is no shortness of breath no chest pain no fever chills no diarrhea constipation no flank pain no dysuria. The patient has been to to the ER over the past month approximately 6 times, vitals are stable. Patient exhibits drug-seeking behavior and, apparently called her primary care physician and told her to to go to the emergency department. Patient has allergies to codeine and Tylenol and aspirin. MD elicited complaint: abdominal pain Pertinent past history: other ( history of pancreatitis) Onset (ago): month(s) Pain Consistency: intermittent Location: diffuse Severity: moderate Related Data Home Medications Medication Instructions Recorded Confirmed amitriptyline 100 mg PO DAILY 05/02/21 05/29/21 eszopiclone 3 mg PO DAILY 05/29/21 05/29/21 pantoprazole 20 mg PO DAILY 05/29/21 05/29/21 suvorexant [Belsomra] 20 mg PO DAILY 05/29/21 05/29/21 Allergies Allergy/AdvReac Type Severity Reaction Status Date / Time aspirin Allergy Unknown Unknown Verified 05/29/21 17:49 codeine Allergy Unknown Rash,Unknow Verified 05/29/21 17:49 n Penicillins Allergy Unknown Unknown Verified 05/29/21 17:49 Sulfa (Sulfonamide Allergy Unknown Unknown Verified 05/29/21 17:49 Antibiotics) acetaminophen [From Tylenol] Allergy Hives Verified 05/29/21 17:49 Review of Systems Review of Systems: All systems reviewed & are unremarkable except as noted in HPI and below PMFSH Past Medical History Medical History GERD (gastroesophageal reflux disease) Nausea Pancreatitis 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 Her son Sonny is the durable power family law attorney for healthcare. Patient is a full code. The patient continues to smoke 1 pack a cigarettes in a week. She does occasionally use marijuana no other illicit drugs. She denies any alcohol she stated the last time she drink any alcohol was September of last year when she was at a [employer]. Smoking packs per day: 0.3 Smoking cigarettes per day: 6.0 Years smoked: 20 Smoking pack-years: 6.00 Smoking status: Current every day smoker Tobacco type: cigarettes Second hand tobacco smoke exposure: No Alcohol intake: unknown Substance use: unknown Substance use type: marijuana Other substance usage details: a few weeks ago when she was nauseous she tried her son's. Gender identity (if verbalized by the patient): Female Sexual Orientation (if Verbalized by the Patient): Straight or Heterosexual Spiritual care concerns: No Agree to blood products: Yes Exam Const: General: no acute distress Orientation/consciousness: patient oriented x3 HENMT: Head: normal to inspection Eyes: Conjunctivae: conjunctivae normal Pupils: Equal, round and reactive pupils present Neck: Neck: normal visual inspection and no lymphadenopathy Chest: Chest palpation & inspection: normal inspection of the chest Resp: Effort &
[2021-05-29 18:07] LABS: Basophils Absolute Auto 0.04 K/mm3 (0.00-0.10); Basophils Percent Auto 0.7 % (0.0-1.0); Eosinophils Absolute Auto 0.19 K/mm3 (0.02-0.50); Eosinophils Percent Auto 3.4 % (1.0-6.0); Hematocrit 40.1 % (35.0-49.0); Immature Granulocyte Absolute 0.01 K/mm3 (0.00-0.00); Immature Granulocyte Percent A 0.2 % (0.0-0.0); Lymphocytes Absolute Auto 2.19 K/mm3 (1.10-4.50); Lymphocytes Percent Auto 39.5 % (18.0-42.0); Mean Corpuscular HGB Conc 32.4 g/dL (32.0-36.0); Mean Corpuscular Hemoglobin 30.2 pg (27.0-31.0); Monocytes Absolute Auto 0.52 K/mm3 (0.10-0.90); Monocytes Percent Auto 9.4 % (2.0-11.0); Neutrophils Absolute Auto 2.6 K/mm3 (1.7-7.2); Neutrophils Percent Auto 46.8 % (50.0-70.0); Platelet Count Result 221 K/mm3 (150-420); Red Blood Count 4.31 M/mm3 (4.20-5.40); Red Cell Distribution Width 15.3 % (11.6-14.4); White Blood Count 5.5 K/mm3 (4.8-10.8)
[2021-05-29 18:24] LABS: Alanine Aminotransferase 18 U/L (14-59); Albumin Level 3.5 g/dL (3.4-5.0); Alkaline Phosphatase 109 U/L (46-116); Anion Gap 6 mmol/L (8-16); Aspartate Amino Transferase 11 U/L (15-37); Bilirubin,Total 0.2 mg/dL (0.00-1.00); Blood Urea Nitrogen 24 mg/dL (7-18); Calcium 9.3 mg/dL (8.5-10.1); Carbon Dioxide 30 mmol/L (21-32); Chloride 101 mmol/L (98-108); Estimated CRCL calculation 54 ml/min; Estimated Glomerular Filt Rate > 60; Glucose 115 mg/dL (70-99); Lipase 59 U/L (73-393); Osmolality Calculated 289 mOsm/kg (285-295); Potassium 4.3 mmol/L (3.5-5.1); Sodium 137 mmol/L (136-145); Total Protein 7.2 g/dL (6.4-8.2)
[2021-05-29 18:27] LABS: Lactic Acid Reflex 0.7 mmol/L (0.4-2.0)
[2021-05-29 19:17] VITALS: BP 137/88; PULSE 73; RESP 16; TEMP 36.6; O2SAT 100
== END 2021-05-29 19:15 | disposition home or self-care (01) ==
PROVIDERS: Emergency Provider Emergency Medicine; PCP Family Medicine
DX: K86.0 Alcohol-induced chronic pancreatitis (principal)
CPT/HCPCS: 36415; 74176; 80053; 83605; 83690; 85025; 96361; 96374; 99284; J2405; J7030